=== PATIENT | female | born 1995 | race Caucasian/White ===

== ENCOUNTER 2017-04-16 00:39 | Emergency (ER) | payer MEDICARE, MEDICAID ==
[2017-04-16] MEDS ORDERED: oxyCODONE/Acetamin 5/325 MG* TAB PO ONE ×2 (02:20→02:21)
[2017-04-16] MEDS ORDERED: Penicillin VK TAB* 250 MG PO ONE (02:22)
[2017-04-16 02:51] VITALS: BP 136/92
--- NOTE | 2017-04-16 14:48 | ED ---
Throat Pain/Nasal Congestion - HPI Summary HPI Summary: Patient arrives to ED with CC of pain over left upper molar radiating to the jaw and ear. She also is having pain in the bottom front teeth radiating to the back molars of the lower mandible. Denies trismus, drooling or dysphagia. Pain is 7/10, sharp and throbbing. Denies airway compromise or SOB. Denies ear pain , eye pain, blurry vision or double vision. Otherwise healthy. Pain is worse with chewing and cold drinks, better with ibuprofen, but only improves slightly. Patient denies dental care for several years. She has had fillings over the areas of concern. She has a dentist and states she will follow up as needed. - History of Current Complaint Chief Complaint: EDDentalPain Time Seen by Provider: 04/16/17 02:06 Hx Obtained From: Patient Onset/Duration: Sudden Onset Severity: Moderate - Epiglottits Risk Factors Epiglottis Risk Factors: Negative - Allergies/Home Medications Allergies/Adverse Reactions: Allergies Allergy/AdvReac Type Severity Reaction Status Date / Time Coconut Oil Allergy Severe Swelling Verified 12/28/12 14:17 Of Face,Lips,& Throat Prochlorperazine Allergy Severe Swelling Verified 12/28/12 14:17 [From Compazine] Of Face,Lips,& Throat Latex Allergy Intermediate Rash Verified 12/28/12 14:17 [place] Flavor Allergy Mild Hives Verified 12/28/12 14:17 Sulfa Antibiotics Allergy Rash Unverified 08/09/14 10:30 almonds Allergy Swelling Uncoded 08/09/14 10:30 Of Face,Lips,& Throat PMH/Surg Hx/FS Hx/Imm Hx Previously Healthy: Yes Endocrine/Hematology History: Denies: Hx Anticoagulant Therapy, Hx Diabetes, Hx Thyroid Disease Cardiovascular History: Denies: Hx Hypertension Respiratory History: Reports: Hx Asthma Denies: Hx Chronic Obstructive Pulmonary Disease (COPD) GI History: Denies: Hx Ulcer Sensory History: Reports: Hx Contacts or Glasses Opthamlomology History: Reports: Hx Contacts or Glasses Psychiatric History: Reports: Hx Anxiety, Hx Attention Deficit Hyperactivity Disorder, Hx Depression, Hx Post Traumatic Stress Disorder, Hx Inpatient Treatment, Hx Bipolar Disorder Denies: Hx Eating Disorder - Surgical History Surgery Procedure, Year, and Place: gall bladder removed at age 15,several scopes - Immunization History Hx Pertussis Vaccination: No Immunizations Up to Date: Unable to Obtain/Confirm Infectious Disease History: No Infectious Disease History: Reports: Hx Shingles Denies: Hx Hepatitis, Hx Human Immunodeficiency Virus (HIV), Traveled Outside the [place] in Last 30 Days - Social History Occupation: Employed Full-time Lives: With Family Alcohol Use: None Hx Substance Use: No Substance Use Type: Reports: None Hx Tobacco Use: Yes Smoking Status (MU): Light Every Day Tobacco Smoker Review of Systems Constitutional: Negative Eyes: Negative Positive: Dental Pain Cardiovascular: Negative Respiratory: Negative Musculoskeletal: Negative Skin: Negative Neurological: Negative Psychological: Normal All Other Systems Reviewed And Are Negative: Yes Physical Exam Triage Information Reviewed: Yes Vital Signs On Initial Exam: Initial Vitals Temp Pulse Resp BP Pulse Ox 97 F 103 20 137/95 100 04/16/17 00:41 04/16/17 00:41 04/16/17 00:41 04/16/17 00:41 04/16/17 00:41 Vital Signs Reviewed: Yes Appearance: Positive: Well-Appearing, Well-Nourished Skin: Positive: Warm, Skin Color Reflects Adequate Perfusion Eyes: Positive: Normal, YUDELKA Dental: Positive: Percussion Tenderness @ - left upper and lower jaw, Gross Decay/Caries @ - throughout, Dental Fracture @ - upper molar, Abscess @ - no abcess seen Respiratory/Lung Sounds: Positive: Clear to Auscultation, Breath Sounds Present Cardiovascular: Positive: Normal, RRR, Pulses are Symmetrical in both Upper and Lower Extremities Musculoskeletal: Positive: Normal, Strength/ROM Intact Neurological: Positive: Sensory/Motor Intact, Alert, Oriented to Person Place, Time Psychiatric: Positive: Normal AVPU Assessment: Alert Diagnostics - Vital Signs Vital Signs Temp Pulse Resp BP Pulse Ox 04/16/17 02:50 98 F 95 136/92 04/16/17 02:43 18 04/16/17 00:41 97 F 103 20 137/95 100 - Laboratory Lab Statement: Any lab studies that have been ordered have been reviewed, and results considered in the medical decision making process. EENT Course/Dx - Course Course Of Treatment: No dental abscess or lesions seen over area of concern. No erythema at site of pain. No drainage from area. Several dental caries, cavities, crowding and broken teeth throughout. Pain on palpation over mandible. No TMJ tenderness. No pain with opening and closing mouth. Poor dental hygiene and outpatient dental care. Will treat for possible dental infection/abscess based on symptoms of pain and radiation to jaw and ear. No allergies. Will treat with Penicillin. Patient to follow up immediately with dentist. Pain medication given in ED and one dose to dispense to home. Patient is OK with discharge. - Differential Diagnoses Differential Diagnoses: Dental Abscess, Dental Caries, Mastoiditis, Odontogenic Pain - Diagnoses Provider Diagnoses: Pain, dental Discharge - Discharge Plan Condition: Stable Disposition: HOME Prescriptions: Penicillin VK TAB 500 MG(NF) [Penicillin VK 500 mg Tab(NF)] 500 mg PO QID #27 tab Patient Education Materials: Toothache (ED) Referrals: Jass Pedroza MD [Primary Care Provider] - Additional Instructions: You have been diagnosed with dental pain with possible infection: Antibiotics as prescribed to you. Penicillin four times daily for 7 days. To minimize the potential for gastrointestinal intolerance, Pencillin should be taken at the start of a meal. If you have any questions about your medication, please contact us or ask your pharmacist. Salt water rinses several times per day will improve healing time. Ibuprofen 600mg three times daily with meals for discomfort. Take a probiotic on opposite schedule of antibiotic. Follow up with a dentist for routine care to prevent recurrence of infections. If fever, worsening pain or swelling develops, see your PCP, dentist or come back to the Emergency Department. Images - Images Dental: 1 - broken tooth 2 - pain radiating to the back molars
== END 2017-04-16 02:50 | disposition home or self-care (01) ==
LOC: ED 00:39
DX: K08.89 Other specified disorders of teeth and supporting structures (principal); F17.210 Nicotine dependence, cigarettes, uncomplicated
CPT/HCPCS: 99282; A9270-GY

== ENCOUNTER → 2017-07-20 19:30 | Emergency (ER) | payer MEDICAID, MEDICARE ==
[~2017-07-20 19:30] MED LIST: Iohexol 300* (CONTRAST) 10 ML SDV IV ONE; Ketorolac INJ* 30 MG/ML 1 ML VIAL IV PUSH ONE; Morphine INJ* 2 MG/ML 1 ML SYRINGE IV ONE; Ondansetron INJ* 2 MG/ML VIAL IV ONE
--- NOTE | 2017-07-20 20:59 | ED ---
Throat Pain/Nasal Congestion - HPI Summary HPI Summary: 21F presents with right sided facial swelling for a week. She states it initially started with a headache. She states then she develop swelling around her eye then pain down through her draw. She states she had fractured tooth that she was suppose to have removed but then her dentist had an injury and couldn't remove her tooth. She was on zpack and finished it with no relief. She was placed on clindamycin with first dose last night. She has been taking percocet and ibuprofen without relief. She states swelling is down due to taking the ibuprofen. She denies any pain with EOM. She denies any fever. She denies any chest pain or SOB. She has had dental infections in the past and states that pain is different this time. - History of Current Complaint Chief Complaint: EDDentalPain Time Seen by Provider: 07/20/17 20:37 - Allergies/Home Medications Allergies/Adverse Reactions: Allergies Allergy/AdvReac Type Severity Reaction Status Date / Time Coconut Oil Allergy Severe Swelling Verified 07/20/17 20:07 Of Face,Lips,& Throat Prochlorperazine Allergy Severe Swelling Verified 07/20/17 20:07 [From Compazine] Of Face,Lips,& Throat Latex Allergy Intermediate Rash Verified 07/20/17 20:07 [place] Flavor Allergy Mild Hives Verified 07/20/17 20:07 Penicillins [PCN] Allergy Anaphylatic Verified 07/20/17 20:07 Shock Sulfa Antibiotics Allergy Rash Unverified 07/20/17 20:07 almonds Allergy Swelling Uncoded 07/20/17 20:07 Of Face,Lips,& Throat PMH/Surg Hx/FS Hx/Imm Hx Endocrine/Hematology History: Denies: Hx Anticoagulant Therapy, Hx Diabetes, Hx Thyroid Disease Cardiovascular History: Denies: Hx Hypertension Respiratory History: Reports: Hx Asthma Denies: Hx Chronic Obstructive Pulmonary Disease (COPD) GI History: Denies: Hx Ulcer Sensory History: Reports: Hx Contacts or Glasses Opthamlomology History: Reports: Hx Contacts or Glasses Psychiatric History: Reports: Hx Anxiety, Hx Attention Deficit Hyperactivity Disorder, Hx Depression, Hx Post Traumatic Stress Disorder, Hx Inpatient Treatment, Hx Bipolar Disorder Denies: Hx Eating Disorder - Surgical History Surgery Procedure, Year, and Place: gall bladder removed at age 15,several scopes Infectious Disease History: Reports: Hx Shingles Denies: Hx Hepatitis, Hx Human Immunodeficiency Virus (HIV), Traveled Outside the [place] in Last 30 Days - Family History Known Family History: Positive: Respiratory Disease - Social History Alcohol Use: None Hx Substance Use: No Substance Use Type: Reports: None Hx Tobacco Use: Yes Smoking Status (MU): Light Every Day Tobacco Smoker Review of Systems Negative: Fever Positive: Dental Pain, Other - facial swelling right side Negative: Chest Pain Negative: Shortness Of Breath All Other Systems Reviewed And Are Negative: Yes Physical Exam Triage Information Reviewed: Yes Vital Signs On Initial Exam: Initial Vitals Temp Pulse Resp BP Pulse Ox 97.8 F 93 16 149/88 98 07/20/17 19:55 07/20/17 19:55 07/20/17 19:55 07/20/17 19:55 07/20/17 19:55 Vital Signs Reviewed: Yes Appearance: Positive: Well-Appearing Skin: Positive: Warm, Dry Head/Face: Positive: Normal Head/Face Inspection, Other - minimial swelling of right side of face Eyes: Positive: Normal, EOMI, YUDELKA, Conjunctiva Clear ENT: Positive: Normal ENT inspection, Pharynx normal, TMs normal Dental: Positive: Percussion Tenderness @ - 32, Dental Fracture @ - 32, Other - no submandibular tenderness. Negative: Abscess @ Neck: Positive: Supple, Nontender, No Lymphadenopathy Respiratory/Lung Sounds: Positive: Clear to Auscultation, Breath Sounds Present Cardiovascular: Positive: Normal, RRR Procedures - Procedure Summary Procedure Summary: cleaned tooth with 500cc saline Place cetricaine on area Dried area and placed temporary cement Diagnostics - Vital Signs Vital Signs Temp Pulse Resp BP Pulse Ox 07/20/17 19:55 97.8 F 93 16 149/88 98 - Laboratory Result Diagrams: 07/20/17 21:28 07/20/17 21:28 Lab Statement: Any lab studies that have been ordered have been reviewed, and results considered in the medical decision making process. - CT maxillary facial CT Interpretation: Positive (See Comments) - dental caries CT Interpretation Completed By: Radiologist EENT Course/Dx - Course Course Of Treatment: 21F presents with right sided facial swelling for a week. She states it initially started with a headache. She states then she develop swelling around her eye then pain down through her draw. She states she had fractured tooth that she was suppose to have removed but then her dentist had an injury and couldn't remove her tooth. She was on zpack and finished it with no relief. She was placed on clindamycin with first dose last night. She has been taking percocet and ibuprofen without relief. She states swelling is down due to taking the ibuprofen. She denies any pain with EOM. She denies any chest pain or SOB. She has had dental infections in the past and states that pain is different this time. on exam minimial swelling of right side of face seen, no abscess felt, tenderness to tooth 32. no submandibular tenderness. labs normal. will get CT of face. CT dental caries. will experiencing nerve pain. placed temporary filling on fractured tooth. will have continue clindamycin and added percocet for pain. patient understands and agrees with plan. - Differential Diagnoses Differential Diagnoses: Dental Abscess, Dental Caries, Fractured Tooth - Diagnoses Provider Diagnoses: Headache, Pain, dental, Fractured tooth Discharge - Discharge Plan Condition: Good Disposition: HOME Prescriptions: oxyCODONE/Acetamin 5/325 MG* [Percocet 5/325 TAB*] 1 tab PO Q6H PRN #16 tab MDD 4 PRN Reason: Pain Patient Education Materials: Toothache (ED) Referrals: Jass Pedroza MD [Primary Care Provider] - Additional Instructions: Continue clindamycin Take ibuprofen every 6 hours, use narcotic for break through pain Avoid hard, crunchy food until seen by dentist Return to ED if develop fever, shortness of breath, pain with eye movement or any new or worsening symptoms Images - Images Dental: 1 - fracture tooth
[2017-07-20 21:48] LABS: Hematocrit 39 % (35-47); Hemoglobin 12.9 g/dl (12.0-16.0); Mean Corpuscular HGB Conc 33 g/dl (31-36); Mean Corpuscular Hemoglobin 28 pg (27-31); Mean Corpuscular Volume 86 fL (80-97); Mean Platelet Volume 7 um3 (7.4-10.4); Red Blood Count 4.56 10^6/ul (4.0-5.4); Red Cell Distribution Width 14 % (10.5-15); White Blood Count 10.8 10^3/ul (3.5-10.8)
[2017-07-20 22:04] LABS: ALT 20 U/L (7-52); AST 18 U/L (13-39); Albumin 3.8 g/dL (3.2-5.2); Alkaline Phosphatase 72 U/L (34-104); Anion Gap 7 mmol/L (2-11); BUN/Creatinine Ratio 11.3 (8-20); Blood Urea Nitrogen 9 mg/dL (6-24); CO2 Carbon Dioxide 26 mmol/L (22-32); Calcium 8.8 mg/dL (8.6-10.3); Chloride 104 mmol/L (101-111); EGFR African American 114.3 (>60); EGFR Non-African American 88.9 (>60); Globulin 3.1 g/dL (2-4); Glucose 96 mg/dL (70-100); Potassium 3.5 mmol/L (3.5-5.0); Sodium 137 mmol/L (133-145); Total Protein 6.9 g/dL (6.4-8.9)
[2017-07-21 00:03] VITALS: BP 118/81
--- NOTE | 2017-07-21 07:16 | RAD ---
INDICATION: Right-sided facial swelling. COMPARISON: There are no prior studies available for comparison. TECHNIQUE: Contiguous axial sections of the axial images of the facial bones were obtained and reconstructed in the coronal and sagittal planes. The exam was performed from following intravenous injection of 50 mL of Omnipaque 300 nonionic contrast. FINDINGS: No focal soft tissue swelling, fluid collection or abscess is seen. The parotid and submandibular glands appear to be within normal limits. No significant enlarged lymph nodes are seen. The orbital globes and extraocular muscles and optic nerves appear symmetric bilaterally.. The paranasal sinuses are clear. The ostiomeatal complexes appear patent bilaterally. There is mild increased density within the right nasal cavity which appears to be secondary to mucosal swelling along the turbinate bones. There is moderate deviation of the nasal septum toward the left side. There are dental caries present. IMPRESSION: DENTAL CARIES.
== END | disposition home or self-care (01) ==
LOC: ED 19:30
DX: K08.89 Other specified disorders of teeth and supporting structures (principal); F17.210 Nicotine dependence, cigarettes, uncomplicated; R51 Headache; K03.81 Cracked tooth
CPT/HCPCS: 36415; 70487; 80053; 83605; 84702; 85025; 96374; 96375; 99282; J1885; J2270; J2405; Q9967

== ENCOUNTER 2017-10-04 03:22 | Emergency (ER) | payer MEDICARE, MEDICAID ==
[2017-10-04] MEDS ORDERED: Ketorolac INJ* 60 MG/2 ML VIAL IM ONE (03:49)
[2017-10-04] MEDS ORDERED: ALPRAZolam TAB* 0.5 MG PO ONE (03:49)
--- NOTE | 2017-10-04 05:01 | ED ---
Bisi Hood Alfonso, scribed for Fede Sterling MD on 10/04/17 at 0346 . Complex/Multi-Sys Presentation - HPI Summary HPI Summary: This patient is a 21 year old F BIBA to [facility] with a chief complaint of sore throat since 2129 tonight. The patient rates the pain 7/10 in severity. Symptoms aggravated and alleviated by nothing. Patient reports sinus congestion (4 months intermittent), and right sided headache. - History Of Current Complaint Chief Complaint: EDAllergicReaction Time Seen by Provider: 10/04/17 03:35 Hx Obtained From: Patient Onset/Duration: Gradual Onset, Lasting Hours, Still Present Timing: Constant Severity Currently: Moderate Aggravating Factor(s): nothing Alleviating Factor(s): nothing Associated Signs And Symptoms: Positive: Other - sinus congestion (4 months intermittent), and right sided headache. - Allergies/Home Medications Allergies/Adverse Reactions: Allergies Allergy/AdvReac Type Severity Reaction Status Date / Time Coconut Oil Allergy Severe Swelling Verified 10/04/17 03:55 Of Face,Lips,& Throat Prochlorperazine Allergy Severe Swelling Verified 10/04/17 03:55 [From Compazine] Of Face,Lips,& Throat Latex Allergy Intermediate Rash Verified 10/04/17 03:55 [place] Flavor Allergy Mild Hives Verified 10/04/17 03:55 Dextromethorphan Allergy See Comment Verified 10/04/17 03:55 [From Mucinex DM] Guaifenesin [From Mucinex DM] Allergy See Comment Verified 10/04/17 03:55 Penicillins [PCN] Allergy Anaphylatic Verified 10/04/17 03:55 Shock Sulfa Antibiotics Allergy Rash Verified 10/04/17 03:55 Yellow Dye [From Mucinex DM] Allergy See Comment Verified 10/04/17 03:55 almonds Allergy Swelling Uncoded 07/20/17 20:07 Of Face,Lips,& Throat PMH/Surg Hx/FS Hx/Imm Hx Endocrine/Hematology History: Denies: Hx Anticoagulant Therapy, Hx Diabetes, Hx Thyroid Disease Cardiovascular History: Denies: Hx Hypertension Respiratory History: Reports: Hx Asthma Denies: Hx Chronic Obstructive Pulmonary Disease (COPD) GI History: Denies: Hx Ulcer Sensory History: Reports: Hx Contacts or Glasses Opthamlomology History: Reports: Hx Contacts or Glasses Psychiatric History: Reports: Hx Anxiety, Hx Attention Deficit Hyperactivity Disorder, Hx Depression, Hx Post Traumatic Stress Disorder, Hx Inpatient Treatment, Hx Bipolar Disorder Denies: Hx Eating Disorder - Surgical History Surgery Procedure, Year, and Place: gall bladder removed at age 15,several scopes Infectious Disease History: Yes Infectious Disease History: Reports: Hx Shingles Denies: Hx Hepatitis, Hx Human Immunodeficiency Virus (HIV), Traveled Outside the [place] in Last 30 Days - Family History Known Family History: Positive: Respiratory Disease - Social History Alcohol Use: None Hx Substance Use: No Substance Use Type: Reports: None Hx Tobacco Use: Yes Smoking Status (MU): Light Every Day Tobacco Smoker Review of Systems Negative: Fever Positive: Sore Throat, Other - Sinus congestion Positive: Headache All Other Systems Reviewed And Are Negative: Yes Physical Exam - Summary Physical Exam Summary: VITAL SIGNS: Reviewed. GENERAL: Patient is a well-developed and nourished female who is lying comfortable in the stretcher. Patient is not in any acute respiratory distress. HEAD AND FACE: No signs of trauma. No ecchymosis, hematomas or skull depressions. No sinus tenderness. EYES: PERRLA, EOMI x 2, No injected conjunctiva, no nystagmus. EARS: Hearing grossly intact. Ear canals and tympanic membranes are within normal limits. MOUTH: Oropharynx within normal limits. NECK: Supple, trachea is midline, no adenopathy, no JVD, no carotid bruit, no c- spine tenderness, neck with full ROM. CHEST: Symmetric, no tenderness at palpation LUNGS: Clear to auscultation bilaterally. No wheezing or crackles. CVS: Regular rate and rhythm, S1 and S2 present, no murmurs or gallops appreciated. ABDOMEN: Soft, non-tender. No signs of distention. No rebound no guarding, and no masses palpated. Bowel sounds are normal. EXTREMITIES: FROM in all major joints, no edema, no cyanosis or clubbing. NEURO: Alert and oriented x 3. No acute neurological deficits. Speech is normal and follows commands. SKIN: Dry and warm Triage Information Reviewed: Yes Vital Signs On Initial Exam: Initial Vitals Temp Pulse Resp BP Pulse Ox 98.3 F 91 18 137/107 96 10/04/17 03:24 10/04/17 03:24 10/04/17 03:24 10/04/17 03:24 10/04/17 03:24 Vital Signs Reviewed: Yes - Dewitt Coma Scale Coma Scale Total: 15 Diagnostics - Vital Signs Vital Signs Temp Pulse Resp BP Pulse Ox 10/04/17 03:24 98.3 F 91 18 137/107 96 - Laboratory Lab Statement: Any lab studies that have been ordered have been reviewed, and results considered in the medical decision making process. Complex Multi-Symp Course/Dx Assessment/Plan: This patient is a 21 year old F BIBA to [facility] with a chief complaint of sore throat since 2129 tonight. The patient rates the pain 7/10 in severity. Symptoms aggravated and alleviated by nothing. Patient reports sinus congestion (4 months intermittent), and right sided headache. In the ED course the patient was given Xanax and Toradol. Patient will be discharged with follow up from PCP. The patient is agreeable with this plan. - Diagnoses Provider Diagnoses: Headache, Anxiety Discharge - Discharge Plan Condition: Stable Disposition: HOME Patient Education Materials: Acute Headache (ED), Anxiety (ED) Referrals: Jass Pedroza MD [Primary Care Provider] - 3 Days Additional Instructions: RETURN TO THE EMERGENCY DEPARTMENT FOR CHANGING OR WORSENING SYMPTOMS. The documentation as recorded by the Bisi rizzo Alfonso accurately reflects the service I personally performed and the decisions made by me, Fede Sterling MD.
[2017-10-04 05:16] VITALS: BP 153/90
== END 2017-10-04 05:18 | disposition home or self-care (01) ==
LOC: ED 03:22
DX: R51 Headache (principal); F41.9 Anxiety disorder, unspecified; Z72.0 Tobacco use; J45.909 Unspecified asthma, uncomplicated; F90.9 Attention-deficit hyperactivity disorder, unspecified type; F43.10 Post-traumatic stress disorder, unspecified; F32.9 Major depressive disorder, single episode, unspecified; Z88.0 Allergy status to penicillin; Z88.2 Allergy status to sulfonamides
CPT/HCPCS: 96372; 99282; A9270-GY; J1885

== ENCOUNTER 2017-11-03 21:30 | Emergency (ER) | payer MEDICARE, MEDICAID ==
[2017-11-03 22:12] VITALS: BP 143/90
[2017-11-03 22:12] LABS: Hematocrit 42 % (35-47); Mean Corpuscular HGB Conc 34 g/dl (31-36); Mean Corpuscular Hemoglobin 29 pg (27-31); Mean Corpuscular Volume 85 fL (80-97); Mean Platelet Volume 7 um3 (7.4-10.4); Red Blood Count 4.91 10^6/ul (4.0-5.4); Red Cell Distribution Width 14 % (10.5-15)
[2017-11-03 22:28] LABS: ALT 19 U/L (7-52); AST 17 U/L (13-39); Alkaline Phosphatase 85 U/L (34-104); Anion Gap 6 mmol/L (2-11); BUN/Creatinine Ratio 9.4 (8-20); Blood Urea Nitrogen 8 mg/dL (6-24); CO2 Carbon Dioxide 26 mmol/L (22-32); Calcium 9.2 mg/dL (8.6-10.3); Chloride 104 mmol/L (101-111); EGFR African American 106.6 (>60); EGFR Non-African American 82.9 (>60); Globulin 3.6 g/dL (2-4); Glucose 83 mg/dL (70-100); Potassium 3.7 mmol/L (3.5-5.0); Sodium 136 mmol/L (133-145); Total Protein 7.6 g/dL (6.4-8.9); Urine Bacteria Absent (Absent); Urine Bilirubin Negative (Negative); Urine Glucose Negative (Negative); Urine Nitrite Negative (Negative)
[2017-11-03 22:32] LABS: Benzodiazepine Urine Screen None Detected (None Detect)
[2017-11-03 22:57] LABS: Acetaminophen < 15 mcg/mL; Alcohol < 10 mg/dL (<10); Salicylate < 2.50 mg/dL (<30)
[2017-11-03 23:12] LABS: TSH (Thyroid Stimulating Horm) 3.64 mcIU/mL (0.34-5.60)
--- NOTE | 2017-11-04 02:04 | ED ---
Satya Hood Tiffany, scribed for Domenic Dominguez on 11/03/17 at 2218 . Psychiatric Complaint - HPI Summary HPI Summary: This patient is a 21 year old F BIBA to [facility] with a chief complaint of depression that has worsened over the past several weeks. Symptoms aggravated by nothing. Symptoms alleviated by nothing. Patient reports suicidal ideation with no plan and uncontrollable crying. - History Of Current Complaint Time Seen by Provider: 11/03/17 21:34 Onset/Duration: Lasting Weeks, Still Present Character: Depressed Aggravating Factor(s): Nothing Alleviating Factor(s): Nothing Has Suicidal: Reports: Thoughts. Denies: With A Plan - Allergies/Home Medications Allergies/Adverse Reactions: Allergies Allergy/AdvReac Type Severity Reaction Status Date / Time Coconut Oil Allergy Severe Swelling Verified 10/04/17 03:55 Of Face,Lips,& Throat Prochlorperazine Allergy Severe Swelling Verified 10/04/17 03:55 [From Compazine] Of Face,Lips,& Throat Latex Allergy Intermediate Rash Verified 10/04/17 03:55 Jovon Flavor Allergy Mild Hives Verified 10/04/17 03:55 Dextromethorphan Allergy See Comment Verified 10/04/17 03:55 [From Mucinex DM] Guaifenesin [From Mucinex DM] Allergy See Comment Verified 10/04/17 03:55 Penicillins [PCN] Allergy Anaphylatic Verified 10/04/17 03:55 Shock Sulfa Antibiotics Allergy Rash Verified 10/04/17 03:55 Yellow Dye [From Mucinex DM] Allergy See Comment Verified 10/04/17 03:55 almonds Allergy Swelling Uncoded 07/20/17 20:07 Of Face,Lips,& Throat PMH/Surg Hx/FS Hx/Imm Hx Previously Healthy: No Endocrine/Hematology History: Denies: Hx Anticoagulant Therapy, Hx Diabetes, Hx Thyroid Disease Cardiovascular History: Denies: Hx Hypertension Respiratory History: Reports: Hx Asthma Denies: Hx Chronic Obstructive Pulmonary Disease (COPD) GI History: Reports: Hx Gastroesophageal Reflux Disease Denies: Hx Ulcer Sensory History: Reports: Hx Contacts or Glasses Opthamlomology History: Reports: Hx Contacts or Glasses Psychiatric History: Reports: Hx Anxiety, Hx Attention Deficit Hyperactivity Disorder, Hx Depression, Hx Post Traumatic Stress Disorder, Hx Inpatient Treatment, Hx Bipolar Disorder Denies: Hx Eating Disorder - Surgical History Surgery Procedure, Year, and Place: gall bladder removed at age 15,several scopes Infectious Disease History: Reports: Hx Shingles Denies: Hx Hepatitis, Hx Human Immunodeficiency Virus (HIV), Traveled Outside the [place] in Last 30 Days - Family History Known Family History: Positive: Respiratory Disease - Social History Alcohol Use: Rare Hx Substance Use: No Substance Use Type: Reports: None Hx Tobacco Use: Yes Smoking Status (MU): Light Every Day Tobacco Smoker Review of Systems Negative: Fever Positive: Depressed, Other - Suicidal ideation with no plan, crying All Other Systems Reviewed And Are Negative: Yes Physical Exam - Summary Physical Exam Summary: Appearance: Well appearing, no pain distress Skin: warm, dry, reflects adequate perfusion Head/face: normal Eyes: EOMI, YUDELKA ENT: normal Neck: supple, non-tender Respiratory: CTA, breath sounds present Cardiovascular: RRR, pulses symmetrical Abdomen: non-tender, soft Bowel: present Musculoskeletal: normal, strength/ROM intact Neuro: normal, sensory motor intact, A&Ox3 Psych: depressed affect Triage Information Reviewed: Yes Vital Signs On Initial Exam: Initial Vitals Temp Pulse Resp BP Pulse Ox 98.2 F 109 18 143/90 97 11/03/17 21:33 11/03/17 21:33 11/03/17 21:33 11/03/17 21:33 11/03/17 21:33 Vital Signs Reviewed: Yes Diagnostics - Vital Signs Vital Signs Temp Pulse Resp BP Pulse Ox 11/03/17 21:33 98.2 F 109 18 143/90 97 - Laboratory Lab Results: Lab Results 11/03/17 11/03/17 11/03/17 Range/Units 21:54 21:54 21:54 WBC 13.0 H (3.5-10.8) 10^3/ul RBC 4.91 (4.0-5.4) 10^6/ul Hgb 14.0 (12.0-16.0) g/dl Hct 42 (35-47) % MCV 85 (80-97) fL MCH 29 (27-31) pg MCHC 34 (31-36) g/dl RDW 14 (10.5-15) % Plt Count 423 (150-450) 10^3/ul MPV 7 L (7.4-10.4) um3 Neut % (Auto) 64.5 (38-83) % Lymph % (Auto) 30.6 (25-47) % [place] % (Auto) 4.6 (1-9) % Eos % (Auto) 0.1 (0-6) % Baso % (Auto) 0.2 (0-2) % Absolute Neuts (auto) 8.4 H (1.5-7.7) 10^3/ul Absolute Lymphs (auto) 4.0 (1.0-4.8) 10^3/ul Absolute Monos (auto) 0.6 (0-0.8) 10^3/ul Absolute Eos (auto) 0 (0-0.6) 10^3/ul Absolute Basos (auto) 0 (0-0.2) 10^3/ul Absolute Nucleated RBC 0 10^3/ul Nucleated RBC % 0 Sodium 136 (133-145) mmol/L Potassium 3.7 (3.5-5.0) mmol/L Chloride 104 (101-111) mmol/L Carbon Dioxide 26 (22-32) mmol/L Anion Gap 6 (2-11) mmol/L BUN 8 (6-24) mg/dL Creatinine 0.85 (0.51-0.95) mg/dL Est GFR ( Amer) 106.6 (>60) Est GFR (Non-Af Amer) 82.9 (>60) BUN/Creatinine Ratio 9.4 (8-20) Glucose 83 (70-100) mg/dL Calcium 9.2 (8.6-10.3) mg/dL Total Bilirubin 0.20 (0.2-1.0) mg/dL AST 17 (13-39) U/L ALT 19 (7-52) U/L Alkaline Phosphatase 85 (34-104) U/L Total Protein 7.6 (6.4-8.9) g/dL Albumin 4.0 (3.2-5.2) g/dL Globulin 3.6 (2-4) g/dL Albumin/Globulin Ratio 1.1 (1-3) TSH 3.64 (0.34-5.60) mcIU/mL Beta HCG, Quant < 0.60 mIU/mL Urine Color Urine Appearance Urine pH (5-9) Ur Specific [place] (1.010-1.030) Urine Protein (Negative) Urine Ketones (Negative) Urine Blood (Negative) Urine Nitrate (Negative) Urine Bilirubin (Negative) Urine Urobilinogen (Negative) Ur Leukocyte Esterase (Negative) Urine WBC (Auto) (Absent) Urine RBC (Auto) (Absent) Ur Squamous Epith Cells (Absent) Urine Bacteria (Absent) Urine Glucose (Negative) Salicylates < 2.50 (<30) mg/dL Urine Opiates Screen None detected (None Detect) Acetaminophen < 15 mcg/mL Ur Barbiturates Screen None detected (None Detect) Ur Phencyclidine Scrn None detected (None Detect) Ur Amphetamines Screen None detected (None Detect) U Benzodiazepines Scrn None detected (None Detect) Urine Cocaine Screen None detected (None Detect) U Cannabinoids Screen None detected (None Detect) Serum Alcohol < 10 (<10) mg/dL 11/03/17 Range/Units 21:54 WBC (3.5-10.8) 10^3/ul RBC (4.0-5.4) 10^6/ul Hgb (12.0-16.0) g/dl Hct (35-47) % MCV (80-97) fL MCH (27-31) pg MCHC (31-36) g/dl RDW (10.5-15) % Plt Count (150-450) 10^3/ul MPV (7.4-10.4) um3 Neut % (Auto) (38-83) % Lymph % (Auto) (25-47) % [place] % (Auto) (1-9) % Eos % (Auto) (0-6) % Baso % (Auto) (0-2) % Absolute Neuts (auto) (1.5-7.7) 10^3/ul Absolute Lymphs (auto) (1.0-4.8) 10^3/ul Absolute Monos (auto) (0-0.8) 10^3/ul Absolute Eos (auto) (0-0.6) 10^3/ul Absolute Basos (auto) (0-0.2) 10^3/ul Absolute Nucleated RBC 10^3/ul Nucleated RBC % Sodium (133-145) mmol/L Potassium (3.5-5.0) mmol/L Chloride (101-111) mmol/L Carbon Dioxide (22-32) mmol/L Anion Gap (2-11) mmol/L BUN (6-24) mg/dL Creatinine (0.51-0.95) mg/dL Est GFR ( Amer) (>60) Est GFR (Non-Af Amer) (>60) BUN/Creatinine Ratio (8-20) Glucose (70-100) mg/dL Calcium (8.6-10.3) mg/dL Total Bilirubin (0.2-1.0) mg/dL AST (13-39) U/L ALT (7-52) U/L Alkaline Phosphatase (34-104) U/L Total Protein (6.4-8.9) g/dL Albumin (3.2-5.2) g/dL Globulin (2-4) g/dL Albumin/Globulin Ratio (1-3) TSH (0.34-5.60) mcIU/mL Beta HCG, Quant mIU/mL Urine Color Yellow Urine Appearance Cloudy Urine pH 7.0 (5-9) Ur Specific [place] 1.015 (1.010-1.030) Urine Protein Negative (Negative) Urine Ketones Negative (Negative) Urine Blood Negative (Negative) Urine Nitrate Negative (Negative) Urine Bilirubin Negative (Negative) Urine Urobilinogen Negative (Negative) Ur Leukocyte Esterase Trace H (Negative) Urine WBC (Auto) Trace(0-5/hpf) (Absent) Urine RBC (Auto) Trace(0-2/hpf) (Absent) Ur Squamous Epith Cells Present H (Absent) Urine Bacteria Absent (Absent) Urine Glucose Negative (Negative) Salicylates (<30) mg/dL Urine Opiates Screen (None Detect) Acetaminophen mcg/mL Ur Barbiturates Screen (None Detect) Ur Phencyclidine Scrn (None Detect) Ur Amphetamines Screen (None Detect) U Benzodiazepines Scrn (None Detect) Urine Cocaine Screen (None Detect) U Cannabinoids Screen (None Detect) Serum Alcohol (<10) mg/dL Result Diagrams: 11/03/17 21:54 11/03/17 21:54 Lab Statement: Any lab studies that have been ordered have been reviewed, and results considered in the medical decision making process. Course/Dx - Course Course Of Treatment: This patient is a 21 year old F BIBA to [facility] with a chief complaint of depression that has worsened over the past several weeks. Bloodwork/UA obtained. Patient received mental health evaluation. Patient will be discharged. The patient is agreeable with this plan. - Differential Dx/Clinical Impression Differential Diagnosis/HQI/PQRI: Positive: Anxiety, Bipolar Disorder, Depression Provider Diagnosis: Depression Discharge - Discharge Plan Condition: Stable Disposition: HOME Patient Education Materials: Depression (ED) Referrals: Jass Pedroza MD [Primary Care Provider] - 3 Days Additional Instructions: Follow up with PCP in 3 days. Return to the ED if you have any new or worsening symptoms. The documentation as recorded by the Satya rizzo Tiffany accurately reflects the service I personally performed and the decisions made by Alberto perez Emmanuel.
--- NOTE | 2017-11-06 12:09 | PN ---
Progress Note - Progress Note Date of Service: 11/06/17 Note: patient urine culture grew E coli 10-25,000 which is not a significant culture so no treatment is necessary.
== END 2017-11-03 23:45 | disposition home or self-care (01) ==
LOC: ED 21:30
DX: F32.9 Major depressive disorder, single episode, unspecified (principal); R45.851 Suicidal ideations; Z32.02 Encounter for pregnancy test, result negative; J45.909 Unspecified asthma, uncomplicated; K21.9 Gastro-esophageal reflux disease without esophagitis; F90.9 Attention-deficit hyperactivity disorder, unspecified type; F41.9 Anxiety disorder, unspecified; Z90.49 Acquired absence of other specified parts of digestive tract; Z88.0 Allergy status to penicillin; Z88.2 Allergy status to sulfonamides; Z88.8 Allergy status to other drugs, medicaments and biological substances; Z91.040 Latex allergy status; F17.210 Nicotine dependence, cigarettes, uncomplicated
CPT/HCPCS: 36415; 80053; 80307; 80320; 80329; 81003; 81015; 84443; 84702; 85025; 87077; 87086; 87186; 99283; G0480

== ENCOUNTER 2017-11-19 19:44 | Inpatient (IN) | payer MEDICARE, MEDICAID ==
[2017-11-19 22:04] LABS: ABS Basophils 0.1 10^3/ul (0-0.2); ABS Eosinophils 0 10^3/ul (0-0.6); ABS Lymphocytes 3.8 10^3/ul (1.0-4.8); ABS Monocytes 0.7 10^3/ul (0-0.8); ABS Neutrophils 9.8 10^3/ul (1.5-7.7); ABS Nucleated RBC 0 10^3/ul; Eosinophil % 0 % (0-6); Hematocrit 40 % (35-47); Hemoglobin 13.6 g/dl (12.0-16.0); Lymphocyte % 26.4 % (25-47); Mean Corpuscular HGB Conc 34 g/dl (31-36); Mean Corpuscular Hemoglobin 28 pg (27-31); Mean Corpuscular Volume 83 fL (80-97); Mean Platelet Volume 7 um3 (7.4-10.4); Nucleated Red Blood Cells % 0; Platelet Count 389 10^3/ul (150-450); Red Cell Distribution Width 14 % (10.5-15); White Blood Count 14.3 10^3/ul (3.5-10.8)
[2017-11-19 22:19] LABS: EGFR Non-African American 91.5 (>60)
--- NOTE | 2017-11-19 23:20 | ED ---
Psychiatric Complaint - HPI Summary HPI Summary: 21F presents with suicidal thought. She states she wants to commit suicide yesterday by sleeping out in the snow. She states she went outside to do such but she could not stand the cold so she came back in. She states that these thoughts have gotten worst over the past 2 weeks. She denies any drug or ETOH use. She states she feels that she is not on the appropriate medication. She states that she also cut herself a couple days ago. - History Of Current Complaint Chief Complaint: EDMentalHealth Time Seen by Provider: 11/19/17 20:34 Hx Last Menstrual Period: 07/05/14 - Allergies/Home Medications Allergies/Adverse Reactions: Allergies Allergy/AdvReac Type Severity Reaction Status Date / Time Coconut Oil Allergy Severe Swelling Verified 11/19/17 19:52 Of Face,Lips,& Throat Prochlorperazine Allergy Severe Swelling Verified 11/19/17 19:52 [From Compazine] Of Face,Lips,& Throat Latex Allergy Intermediate Rash Verified 11/19/17 19:52 Jovon Flavor Allergy Mild Hives Verified 11/19/17 19:52 Dextromethorphan Allergy See Comment Verified 11/19/17 19:52 [From Mucinex DM] Guaifenesin [From Mucinex DM] Allergy See Comment Verified 11/19/17 19:52 Penicillins [PCN] Allergy Anaphylatic Verified 11/19/17 19:52 Shock Sulfa Antibiotics Allergy Rash Verified 11/19/17 19:52 Yellow Dye [From Mucinex DM] Allergy See Comment Verified 11/19/17 19:52 almonds Allergy Swelling Uncoded 11/19/17 19:52 Of Face,Lips,& Throat PMH/Surg Hx/FS Hx/Imm Hx Endocrine/Hematology History: Denies: Hx Anticoagulant Therapy, Hx Diabetes, Hx Thyroid Disease Cardiovascular History: Denies: Hx Hypertension Respiratory History: Reports: Hx Asthma Denies: Hx Chronic Obstructive Pulmonary Disease (COPD) GI History: Reports: Hx Gastroesophageal Reflux Disease Denies: Hx Ulcer Sensory History: Reports: Hx Contacts or Glasses Opthamlomology History: Reports: Hx Contacts or Glasses Psychiatric History: Reports: Hx Anxiety, Hx Attention Deficit Hyperactivity Disorder, Hx Depression, Hx Post Traumatic Stress Disorder, Hx Inpatient Treatment, Hx Bipolar Disorder Denies: Hx Eating Disorder - Surgical History Surgery Procedure, Year, and Place: gall bladder removed at age 15,several scopes Infectious Disease History: No Infectious Disease History: Reports: Hx Shingles Denies: Hx Hepatitis, Hx Human Immunodeficiency Virus (HIV), Traveled Outside the [place] in Last 30 Days - Family History Known Family History: Positive: Respiratory Disease - Social History Alcohol Use: Rare Hx Substance Use: No Substance Use Type: Reports: None Substance Use Comment - Amount & Last Used: occasionally Hx Tobacco Use: Yes Smoking Status (MU): Light Every Day Tobacco Smoker Review of Systems Negative: Fever Negative: Chest Pain Negative: Shortness Of Breath Positive: Depressed All Other Systems Reviewed And Are Negative: Yes Physical Exam Triage Information Reviewed: Yes Vital Signs On Initial Exam: Initial Vitals Temp Pulse Resp BP Pulse Ox 97.7 F 130 18 128/74 98 11/19/17 19:46 11/19/17 19:46 11/19/17 19:46 11/19/17 19:46 11/19/17 19:46 Vital Signs Reviewed: Yes Appearance: Positive: Well-Appearing Skin: Positive: Warm, Dry, Other - superficial laceration to left arm Head/Face: Positive: Normal Head/Face Inspection Eyes: Positive: Normal, Conjunctiva Clear Respiratory/Lung Sounds: Positive: Clear to Auscultation, Breath Sounds Present Cardiovascular: Positive: Normal, RRR Abdomen Description: Positive: Nontender, Soft Bowel Sounds: Positive: Present Musculoskeletal: Positive: Normal Neurological: Positive: Normal Psychiatric: Positive: Depressed - Anders Coma Scale Coma Scale Total: 15 Diagnostics - Vital Signs Vital Signs Temp Pulse Resp BP Pulse Ox 11/19/17 19:46 97.7 F 130 18 128/74 98 - Laboratory Lab Results: Lab Results 11/19/17 11/19/17 Range/Units 21:50 21:50 WBC 14.3 H (3.5-10.8) 10^3/ul RBC 4.80 (4.0-5.4) 10^6/ul Hgb 13.6 (12.0-16.0) g/dl Hct 40 (35-47) % MCV 83 (80-97) fL MCH 28 (27-31) pg MCHC 34 (31-36) g/dl RDW 14 (10.5-15) % Plt Count 389 (150-450) 10^3/ul MPV 7 L (7.4-10.4) um3 Neut % (Auto) 68.4 (38-83) % Lymph % (Auto) 26.4 (25-47) % [place] % (Auto) 4.7 (1-9) % Eos % (Auto) 0 (0-6) % Baso % (Auto) 0.5 (0-2) % Absolute Neuts (auto) 9.8 H (1.5-7.7) 10^3/ul Absolute Lymphs (auto) 3.8 (1.0-4.8) 10^3/ul Absolute Monos (auto) 0.7 (0-0.8) 10^3/ul Absolute Eos (auto) 0 (0-0.6) 10^3/ul Absolute Basos (auto) 0.1 (0-0.2) 10^3/ul Absolute Nucleated RBC 0 10^3/ul Nucleated RBC % 0 Sodium 136 (133-145) mmol/L Potassium 3.6 (3.5-5.0) mmol/L Chloride 100 L (101-111) mmol/L Carbon Dioxide 30 (22-32) mmol/L Anion Gap 6 (2-11) mmol/L BUN 9 (6-24) mg/dL Creatinine 0.78 (0.51-0.95) mg/dL Est GFR ( Amer) 117.7 (>60) Est GFR (Non-Af Amer) 91.5 (>60) BUN/Creatinine Ratio 11.5 (8-20) Glucose 100 (70-100) mg/dL Calcium 9.6 (8.6-10.3) mg/dL Total Bilirubin 0.20 (0.2-1.0) mg/dL AST 17 (13-39) U/L ALT 22 (7-52) U/L Alkaline Phosphatase 91 (34-104) U/L Total Protein 7.4 (6.4-8.9) g/dL Albumin 4.0 (3.2-5.2) g/dL Globulin 3.4 (2-4) g/dL Albumin/Globulin Ratio 1.2 (1-3) TSH 6.11 H (0.34-5.60) mcIU/mL Salicylates < 2.50 (<30) mg/dL Acetaminophen < 15 mcg/mL Serum Alcohol < 10 (<10) mg/dL Result Diagrams: 11/19/17 21:50 01/02/18 21:50 Lab Statement: Any lab studies that have been ordered have been reviewed, and results considered in the medical decision making process. Course/Dx - Course Course Of Treatment: 21F presents with suicidal thought. She states she wants to commit suicide yesterday by sleeping out in the snow. She states she went outside to do such but she could not stand the cold so she came back in. She states that these thoughts have gotten worst over the past 2 weeks. She denies any drug or ETOH use. She states she feels that she is not on the appropriate medication. She states that she also cut herself a couple days ago. on exam superficial laceration of left arm. medically clear for MHE. patient signed out to dr collins pending for disposition. - Differential Dx/Clinical Impression Differential Diagnosis/HQI/PQRI: Positive: Depression, Suicide Attempt, Suicidal Ideation, Suicidal Gesture Provider Diagnosis: Depression Discharge - Discharge Plan Condition: Stable Disposition: OTHER Discharge Disposition Comment: signed out to dr collins pending E for disposition Referrals: Jass Pedroza MD [Primary Care Provider] -
[2017-11-20] MEDS ORDERED: Acetaminophen TAB* 325 MG PO PRN (10:34)
[2017-11-20] MEDS ORDERED: Al Hydrox/Mg Hydrox/Simet LIQ* 30 ML UDC PO PRN (10:34)
[2017-11-20] MEDS ORDERED: IPRATROPIUM RESP MDI INH PRN (10:36)
[2017-11-20] MEDS ORDERED: ALBUTEROL INH PRN (10:36)
[2017-11-20] MEDS ORDERED: Cetirizine* 10 MG TAB PO PRN (10:36)
[2017-11-20] MEDS ORDERED: hydrOXYzine HCL TAB* 50 MG PO PRN (10:38)
[2017-11-20] MEDS ORDERED: Nicotine GUM* 2 MG PO PRN (10:39)
[2017-11-20] MEDS ORDERED: Mouth Piece, Nicotine* 1 EACH CARTRIDGE INH PRN (10:39)
[2017-11-20] MEDS ORDERED: Nicotine Inhaler* 10 MG AMP INH PRN (10:39)
[2017-11-20] MEDS ORDERED: metFORMIN* 1,000 MG TAB ONE (10:52)
[2017-11-20] MEDS ORDERED: ALPRAZolam TAB* 0.5 MG PO PRN (10:56)
[2017-11-20] MEDS: metFORMIN* 1,000 MG TAB PO SCH ×2 (11:00→21:19)
--- NOTE | 2017-11-20 11:16 | UC ---
- Progress Note Progress Note: Pt voluntary admission to [facility] paperwork complete [facility] 11/20/2017 Dx depression - Consult/PCP Time Called: 19:45 Course/Dx - Course Course Of Treatment: 21F presents with suicidal thought. She states she wants to commit suicide yesterday by sleeping out in the snow. She states she went outside to do such but she could not stand the cold so she came back in. She states that these thoughts have gotten worst over the past 2 weeks. She denies any drug or ETOH use. She states she feels that she is not on the appropriate medication. She states that she also cut herself a couple days ago. on exam superficial laceration of left arm. medically clear for MHE. patient signed out to dr collins pending for disposition. - Diagnoses Provider Diagnoses: Depression
[2017-11-20 17:35] LABS: Urine Color Yellow
[2017-11-20 17:36] LABS: Urine Appearance Cloudy; Urine Blood Negative (Negative); Urine Ketones Negative (Negative); Urine Protein Negative (Negative); Urine Specific Gravity 1.014 (1.010-1.030); Urine Urobilinogen Negative (Negative)
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
[2017-11-20] MEDS ORDERED: busPIRone TAB* 15 MG PO SCH (21:00)
[2017-11-20] MEDS: ETHINYL ESTRADIOL PO SCH (21:16)
[2017-11-20] MEDS: NORGESTREL PO SCH (21:16)
[2017-11-20] MEDS: Gabapentin CAP(*) 300 MG PO SCH (21:17)
[2017-11-20] MEDS: Venlafaxine EXT RELEASE CAP* 75 MG PO SCH (21:18)
[2017-11-20] MEDS: busPIRone TAB* 15 MG PO SCH (21:19)
[2017-11-20] MEDS: Montelukast Sodium TAB* 10 MG PO SCH (21:19)
[2017-11-20] MEDS: Omeprazole CAP* 20 MG PO SCH (21:19)
[2017-11-21] MEDS: buPROPion SR TAB.SR* 100 MG PO SCH (08:49)
[2017-11-21] MEDS: metFORMIN* 1,000 MG TAB PO SCH ×2 (08:49→21:18)
[2017-11-21] MEDS: Gabapentin CAP(*) 300 MG PO SCH ×2 (08:49→21:18)
[2017-11-21] MEDS ORDERED: NF:Ipratropium HFA INHALER(NF) (ALTERNATIVE = NEBS) INH PRN (11:34)
[2017-11-21] MEDS: NORGESTREL PO SCH ×2 (11:35→21:19)
[2017-11-21] MEDS: ETHINYL ESTRADIOL PO SCH ×2 (11:35→21:19)
[2017-11-21] MEDS ORDERED: Albuterol HFA INHALER* 8 gm MDI INH PRN (11:52)
[2017-11-21] MEDS ORDERED: Albuterol/Ipratropium NEB.SOL* Albuterol 2.5 MG/Ipratropium 0.5 MG 3 ML INH PRN (11:52)
--- NOTE | 2017-11-21 15:08 | PN ---
Subjective - Subjective Service Type: 60592 Hosp care 25 min moderate complexity Subjective: Patient reports improved mood. She states she tends to become anxious and depressed when plans change without notice. She gives example of her mother being ill and not following through on outings with her. Patient denies side effects from medication change. She states she slept well from approx 10pm to 6am. She is motivated to have more consistent routines. Cost Accounting Clerk encourages her to also work on how to cope at home and be flexible when plans change. Patient denies SI or SIB urges. Objective - Appearance Appearance: Obese Dysmorphic Features: No Hygiene: Normal Grooming: Well Kept - Behavior Psychomotor Activities: Normal Exhibits Abnormal Movement: No - Attitude and Relatedness Attitude and Relatedness: Cooperative Eye Contact: Good - Speech Quality: Unpressured Plan - Plan Treatment Plan: Name: CALEB CARBALLO Birthdate: 1995 [id number] Continue acute intensive psychiatric treatment. Continue taper of buspirone and titration of wellbutrin. Decrease to q30min observation and allow staff pass. Tentative discharge tomorrow to target brief hospitalization. Continued Medication Management: Different Medication Medications: Current Medications Acetaminophen (Tylenol Tab*) 650 mg PO Q4H PRN PRN Reason: for pain; or Temp >101 F Al Hydrox/Mg Hydrox/Simethicone (Maalox Plus*) 30 ml PO Q4H PRN PRN Reason: INDIGESTION Albuterol (Ventolin Hfa Inhaler*) 2 puff INH Q6H PRN PRN Reason: SOB/WHEEZING Albuterol/Ipratropium (Duoneb (Albuterol 2.5 Mg/Ipratropium 0.5 Mg)) 1 neb INH Q6H PRN PRN Reason: SOB/WHEEZING Bupropion HCl (Wellbutrin Sr Tab*) 100 mg PO DAILY [facility] Last Admin: 11/21/17 08:49 Dose: 100 mg Buspirone HCl (Buspar Tab *) 15 mg PO BEDTIME [facility] Last Admin: 11/20/17 21:19 Dose: 15 mg Cetirizine HCl (Zyrtec*) 10 mg PO DAILY PRN; Protocol PRN Reason: Seasonal Allergies Device (Nicotine Mouth Piece*) 1 each INH .USE WITH NICOTROL PRN PRN Reason: CRAVING Gabapentin (Neurontin Cap(*)) 300 mg PO BID [facility] Last Admin: 11/21/17 08:49 Dose: 300 mg Lorazepam (Ativan Tab(*)) 1 mg PO BID PRN PRN Reason: ANXIETY Metformin HCl (Glucophage*) 1,000 mg PO BID [facility] Last Admin: 11/21/17 08:49 Dose: 1,000 mg Montelukast Sodium (Singulair Tab*) 10 mg PO BEDTIME [facility] Last Admin: 11/20/17 21:19 Dose: 10 mg Nicotine (Nicotine Inhaler*) 10 mg INH Q2H PRN PRN Reason: CRAVING Nicotine Polacrilex (Nicotine Gum*) 2 mg PO Q2H PRN PRN Reason: CRAVING Cmcs: (Ethinyl Estradiol And Norgestrel 1 Tab) 1 tab PO BEDTIME [facility] Omeprazole (Prilosec Cap*) 20 mg PO BEDTIME [facility] PRN Reason: Protocol Last Admin: 11/20/17 21:19 Dose: 20 mg Venlafaxine HCl (Effexor Xr Cap*) 225 mg PO BEDTIME [facility] Last Admin: 11/20/17 21:18 Dose: 225 mg - Discharge Plan Discharge Plan: Outpatient Follow Up Outpatient Program: [facility]
[2017-11-21] MEDS: Venlafaxine EXT RELEASE CAP* 75 MG PO SCH (21:17)
[2017-11-21] MEDS: Montelukast Sodium TAB* 10 MG PO SCH (21:18)
[2017-11-21] MEDS: Omeprazole CAP* 20 MG PO SCH (21:18)
[2017-11-21] MEDS: busPIRone TAB* 15 MG PO SCH (21:19)
[2017-11-22] MEDS: Gabapentin CAP(*) 300 MG PO SCH ×2 (09:13→21:05)
[2017-11-22] MEDS: metFORMIN* 1,000 MG TAB PO SCH ×2 (09:14→21:05)
[2017-11-22] MEDS: buPROPion SR TAB.SR* 100 MG PO SCH (09:14)
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
[2017-11-22] MEDS: NORGESTREL PO SCH (21:05)
[2017-11-22] MEDS: ETHINYL ESTRADIOL PO SCH (21:05)
[2017-11-22] MEDS: Montelukast Sodium TAB* 10 MG PO SCH (21:05)
[2017-11-22] MEDS: Venlafaxine EXT RELEASE CAP* 75 MG PO SCH (21:06)
[2017-11-22] MEDS: Omeprazole CAP* 20 MG PO SCH (21:06)
[2017-11-23] MEDS: Gabapentin CAP(*) 300 MG PO SCH ×2 (08:24→20:38)
[2017-11-23] MEDS: BuPROPion XL* 150 MG TAB.XL PO SCH (08:24)
[2017-11-23] MEDS: metFORMIN* 1,000 MG TAB PO SCH ×2 (08:24→20:37)
--- NOTE | 2017-11-23 16:09 | PN ---
Subjective - Subjective Date of Service: 11/23/17 Service Type: 07137 Hosp care 15 min low complexity Subjective: Doing well today. 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 She understand the issue now and waiting to be discharged on Mon. Objective - Appearance Appearance: Obese Dysmorphic Features: No Hygiene: Normal Grooming: Well Kept - Behavior Psychomotor Activities: Normal Exhibits Abnormal Movement: No - Attitude and Relatedness Attitude and Relatedness: Appropriate Eye Contact: Good - Speech Quality: Unpressured Latencies: Normal Quantity: Appropriate - Mood Patient's Decription of Mood: "Fine" - Affect Observed Affect: Non-labile Affect Consistent with: Euthymia - Thought Process Patient's Thought Process: Coherent, Goal Directed Thought Content: No Passive Wish, No Suicidal Planning, No Homicidal Ideation, No Paranoid Ideation - Sensorium Experiencing Hallucinations: No, Sensorium is Clear Type of Hallucinations: Visual: No, Auditory: No, Command: No - Level of Consciousness Level of Consciousness: Alert Orientation: Yes Intact, Yes Orientated to Time, Yes Orientated to Place, Yes Orientated to Person - Impulse Control Impulse Control: Intact - Insight and Judgement Insight and Judgement: Fair - Group Participation Particating in Group Activities: Yes - Medication Management Medication Management Adherence: Yes Assessment - Assessment Merits Inpatient Hospitalization: Consolidate Improvements, For Discharge Planning Inpatient DSM-IV Dx: unspecified depressive d/o; cluster B traits; PCOS; obesity ; migraine headaches Clinical Impression: Stable enough and safe for discharge. Plan - Plan Treatment Plan: Name: CALEB CARBALLO Birthdate: 1995 [id number] Continued Medication Management: Continue Outpt Medication Medications: Current Medications Acetaminophen (Tylenol Tab*) 650 mg PO Q4H PRN PRN Reason: for pain; or Temp >101 F Al Hydrox/Mg Hydrox/Simethicone (Maalox Plus*) 30 ml PO Q4H PRN PRN Reason: INDIGESTION Albuterol (Ventolin Hfa Inhaler*) 2 puff INH Q6H PRN PRN Reason: SOB/WHEEZING Albuterol/Ipratropium (Duoneb (Albuterol 2.5 Mg/Ipratropium 0.5 Mg)) 1 neb INH Q6H PRN PRN Reason: SOB/WHEEZING Bupropion HCl (Wellbutrin Xl *) 150 mg PO DAILY [facility] PRN Reason: Protocol Last Admin: 11/23/17 08:24 Dose: 150 mg Cetirizine HCl (Zyrtec*) 10 mg PO DAILY PRN; Protocol PRN Reason: Seasonal Allergies Device (Nicotine Mouth Piece*) 1 each INH .USE WITH NICOTROL PRN PRN Reason: CRAVING Gabapentin (Neurontin Cap(*)) 300 mg PO BID [facility] Last Admin: 11/23/17 08:24 Dose: 300 mg Lorazepam (Ativan Tab(*)) 1 mg PO BID PRN PRN Reason: ANXIETY Metformin HCl (Glucophage*) 1,000 mg PO BID [facility] Last Admin: 11/23/17 08:24 Dose: 1,000 mg Montelukast Sodium (Singulair Tab*) 10 mg PO BEDTIME [facility] Last Admin: 11/22/17 21:05 Dose: 10 mg Nicotine (Nicotine Inhaler*) 10 mg INH Q2H PRN PRN Reason: CRAVING Nicotine Polacrilex (Nicotine Gum*) 2 mg PO Q2H PRN PRN Reason: CRAVING Cmcs: (Ethinyl Estradiol And Norgestrel 1 Tab) 1 tab PO BEDTIME [facility] Last Admin: 11/22/17 21:05 Dose: 1 tab Omeprazole (Prilosec Cap*) 20 mg PO BEDTIME [facility] PRN Reason: Protocol Last Admin: 11/22/17 21:06 Dose: 20 mg Venlafaxine HCl (Effexor Xr Cap*) 225 mg PO BEDTIME [facility] Last Admin: 11/22/17 21:06 Dose: 225 mg - Discharge Plan Discharge Plan: Outpatient Follow Up Outpatient Program: [facility]
[2017-11-23] MEDS: NORGESTREL PO SCH (20:36)
[2017-11-23] MEDS: ETHINYL ESTRADIOL PO SCH (20:36)
[2017-11-23] MEDS: Omeprazole CAP* 20 MG PO SCH (20:37)
[2017-11-23] MEDS: Venlafaxine EXT RELEASE CAP* 75 MG PO SCH (20:37)
[2017-11-23] MEDS: Montelukast Sodium TAB* 10 MG PO SCH (20:38)
[2017-11-23] MEDS: LORazepam TAB(*) 1 MG PO PRN (22:28)
[2017-11-23] MEDS ORDERED: diPHENhydraMINE PO* 50 MG PO PRN (23:50)
[2017-11-24] MEDS: Gabapentin CAP(*) 300 MG PO SCH ×2 (08:13→20:19)
[2017-11-24] MEDS: BuPROPion XL* 150 MG TAB.XL PO SCH (08:13)
[2017-11-24] MEDS: metFORMIN* 1,000 MG TAB PO SCH ×2 (08:13→20:17)
[2017-11-24] MEDS ORDERED: diPHENhydraMINE PO* 25 MG PO PRN (12:57)
[2017-11-24] MEDS: LORazepam TAB(*) 1 MG PO PRN (16:06)
[2017-11-24] MEDS: Venlafaxine EXT RELEASE CAP* 75 MG PO SCH (20:17)
[2017-11-24] MEDS: ETHINYL ESTRADIOL PO SCH (20:17)
[2017-11-24] MEDS: NORGESTREL PO SCH (20:17)
[2017-11-24] MEDS: Omeprazole CAP* 20 MG PO SCH (20:18)
[2017-11-24] MEDS: Montelukast Sodium TAB* 10 MG PO SCH (20:18)
[2017-11-25] MEDS: BuPROPion XL* 150 MG TAB.XL PO SCH (08:29)
[2017-11-25] MEDS: Gabapentin CAP(*) 300 MG PO SCH (08:29)
[2017-11-25] MEDS: metFORMIN* 1,000 MG TAB PO SCH (08:29)
[2017-11-25 10:28] VITALS: BP 134/78
--- NOTE | 2017-11-26 05:10 | DS ---
CC: [facility]; Dr. Pedroza * DISCHARGE SUMMARY: DATE OF ADMISSION: 11/20/17 DATE OF DISCHARGE: 11/25/17 SUPERVISING PHYSICIAN: Alvaro Mohan MD * (DICTATED BY HARRISON SANCHEZ NP) DISCHARGE DIAGNOSES: 1. Unspecified depressive disorder. 2. Cluster B personality disorder. 3. Obesity. 4. Polycystic ovary syndrome. 5. Migraine headaches. CONDITION AT TIME OF DISCHARGE: Improved. The patient is euthymic and pleasant upon approach. She reports improved mood and denies suicidal ideation. She states that anxiety is improved since being on the unit and agrees to utilize gabapentin as needed. She states that when she takes as scheduled causes some mild sedation. The patient has coordinated with her family members and plans to return to her apartment today. 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 MENTAL STATUS EXAM: The patient is an obese white female who appears stated age. She is well groomed. Her hairs pulled back into a messy bun. She wearing spectacles and dressed in her own clothing. She sits on the edge of her bed, is cooperative and answers questions fully. She is alert and oriented x3. Concentration is good. Eye contact is good. Memory is 3/3. Her mood is "good. " Affect is right upon approach. Speech is normal rate rhythm and volume. Through process is logical and goal directed. Thought content is negative for SI or passive wish. She denies A/V hallucinations. There is no evidence of thought disorder. Her insight is good. Her judgement is good and her fund of knowledge is excellent. DISCHARGE INSTRUCTIONS: Discharge instructions are given to the patient. A. Medications: 1. Bupropion XL 150 mg p.o. q.a.m. 2. Gabapentin 300 mg p.o. b.i.d. p.r.n. anxiety. 3. She will continue alprazolam as previously prescribed by her outpatient psychiatrist. The patient denies need for refill at this time. 4. She will also continue venlafaxine XR at 225 mg daily. The following medications will be continued by Dr. Pedroza, her primary care provider: 1. Metformin 1000 mg b.i.d. 2. Singulair 10 mg daily. 3. Cryselle oral contraceptive pill daily. 4. Omeprazole 20 mg daily. 5. Zyrtec 10 mg daily. B. Diet is regular. C. Activities, ambulation as tolerated. Tobacco cessation assistance has been provided. There are no labs or diagnostic studies pending at the time of discharge. D. Followup care, the patient will follow up as needed with her primary care provider Dr. Pedroza. She will follow up with [facility] as needed for continued support. For her outpatient mental health services, she will follow up at the [facility]. She has an appointment with her therapist on 11/29/17 at 1:15 p.m. and her psychiatrist, Dr. Hudson on 12/06/17 at 10 a.m. E. Substance abuse followup is not applicable. HOSPITAL COURSE: A. Reason for admission: The patient presented to the emergency department voluntarily due to increased depression and anxiety, self injurious behavior and suicidal ideation. History of Present Illness: The patient is a 21-year-old white female with multiple previous psychiatric admissions. Most recent was in December 2012. She had been doing well with supportive services in the community over the last 5 years. Last year, she wanted to be more independent and transitioned to her own apartment. Since that time, she and her boyfriend have broken up and she reported increased depression and anxiety. She engaged in mild superficial lacerations on her left forearm for the first time in a few months. She endorsed suicidal ideation daily, which was intrusive to her. She was agreeable to voluntary hospitalization to the adult behavioral services unit. B. Psychiatric treatment rendered: While in the emergency department, the patient was medically cleared and obtained blood work. Her CBC was high with WBCs 14.3. Her CMP was grossly unremarkable with her TSH was high at 6.11 but her free T4 was normal at 0.65. Beta-hCG negative. Urinalysis within normal limits due to contaminated specimen, toxicology was positive for benzodiazepines as this is congruent with her outpatient prescriptions. Toxicology otherwise negative. The patient was admitted to adult behavioral services unit and placed on 15-minute checks for safety. She is full code status. She was encouraged to participate in supportive milieu, individual sessions with staff and psycho-educational groups. Upon psychiatric interview, the patient reported desire to change medications as it had been some time since she has had any psychiatric medication changes. She agreed to taper buspirone and utilize gabapentin to better target anxiety. She agreed to add Wellbutrin for depressed mood and neurovegetative symptoms. The patient tolerated medication changes well and reported improved mood, motivation, and anxiety. The patient was safe on all checks and decreased to q.30 minute observation. She was allowed to go on staff pass. The patient participated fully in groups and was interactive with staff and peers. 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 Due to this, she was given feedback to refrain from discussing treatment or interactions with peers that she knows from her employment position. The patient was also encouraged to prioritize her own treatment and identify her own skills and needs. On the day of discharge, the patient reported readiness for discharge. She denies suicidal ideation or passive wish. She agrees to follow up with outpatient services already in place. The patient was given discharge instructions by nursing staff, and her mother and younger sister are present for transportation home. HARRISON SANCHEZ NP [id number]/[facility] #: [id number] MARITZA
== END 2017-11-25 10:50 | disposition home or self-care (01) | DRG 881 ==
LOC: ED 19:44 → BSU 11-20 10:34
PROVIDERS: ADMIT Psychiatry & Neurology Psychiatry; ATTEND Psychiatry & Neurology Psychiatry
DX: F32.9 Major depressive disorder, single episode, unspecified (principal); Z68.43 Body mass index [BMI] 50.0-59.9, adult; E28.2 Polycystic ovarian syndrome; E78.5 Hyperlipidemia, unspecified; F41.9 Anxiety disorder, unspecified; K21.9 Gastro-esophageal reflux disease without esophagitis; F90.9 Attention-deficit hyperactivity disorder, unspecified type; F43.10 Post-traumatic stress disorder, unspecified; R40.2412 Glasgow coma scale score 13-15, at arrival to emergency department; G43.909 Migraine, unspecified, not intractable, without status migrainosus; Z62.810 Personal history of physical and sexual abuse in childhood; F12.90 Cannabis use, unspecified, uncomplicated; F60.89 Other specific personality disorders; E66.9 Obesity, unspecified; F17.210 Nicotine dependence, cigarettes, uncomplicated; J45.909 Unspecified asthma, uncomplicated; S41.112A Laceration without foreign body of left upper arm, initial encounter; X78.9XXA Intentional self-harm by unspecified sharp object, initial encounter; Z91.041 Radiographic dye allergy status; Z91.040 Latex allergy status; Z88.0 Allergy status to penicillin; Z88.2 Allergy status to sulfonamides; Z88.8 Allergy status to other drugs, medicaments and biological substances; Z91.018 Allergy to other foods; Z90.49 Acquired absence of other specified parts of digestive tract; Z86.19 Personal history of other infectious and parasitic diseases; Z82.5 Family history of asthma and other chronic lower respiratory diseases; Z81.8 Family history of other mental and behavioral disorders; Z72.89 Other problems related to lifestyle; Z79.84 Long term (current) use of oral hypoglycemic drugs; Z91.5 Personal history of self-harm; Y92.9 Unspecified place or not applicable
CPT/HCPCS: 36415; 80053; 80307; 80320; 80329; 81003; 81015; 84439; 84443; 84702; 85025; 87086; 99222; 99232; 99238; 99283; A9270-GY; G0480

== ENCOUNTER 2018-05-18 23:28 | Emergency (ER) | payer MEDICARE, MEDICAID ==
[2018-05-18] MEDS ORDERED: Ketorolac INJ* 60 MG/2 ML VIAL IM ONE (23:54)
--- NOTE | 2018-05-19 00:25 | ED ---
Back Pain - HPI Summary HPI Summary: Pt. is a 22 y.o female who presents to the ER for low back pain x 1 week. Pt. does not recall any falls or injury. She notes she has been dealing with right hip pain which she is seeing her PCP for and is waiting to start PT. Pt. states pain radiates into upper legs. She denies numbness, tingling or weakness. Denies bowel or bladder incontinence or retention. Pt. denies urinary symptoms, abd. pain, N/V/D. Pt. has tried taking naproxen and icy hot with minimal relief. Symptoms are mild in severity. Movement makes symptoms worse. Nothing makes symptoms better. - History of Current Complaint Chief Complaint: EDBackInjuryPain Stated Complaint: BACK PAIN Time Seen by Provider: 05/18/18 23:33 Hx Obtained From: Patient Hx Last Menstrual Period: 07/05/14 Pain Intensity: 7 - Allergies/Home Medications Allergies/Adverse Reactions: Allergies Allergy/AdvReac Type Severity Reaction Status Date / Time MS Coconut Oil [Coconut Oil] Allergy Severe Swelling Verified 11/24/17 08:40 Of Face,Lips,& Throat MS Prochlorperazine Allergy Severe Swelling Verified 11/24/17 08:40 [From Compazine] Of Face,Lips,& Throat MS Latex [Latex] Allergy Intermediate Rash Verified 11/24/17 08:40 MS Jovon Flavor Allergy Mild Hives Verified 11/24/17 08:40 [Utting Flavor] MS Dextromethorphan Allergy See Comment Verified 11/24/17 08:40 [From Mucinex DM] MS Guaifenesin Allergy See Comment Verified 11/24/17 08:40 [From Mucinex DM] MS Penicillins [PCN] Allergy Anaphylatic Verified 11/24/17 08:40 Shock MS Sulfa Antibiotics Allergy Rash Verified 11/24/17 08:40 [Sulfa Antibiotics] MS Yellow Dye Allergy See Comment Verified 11/24/17 08:40 [From Mucinex DM] Tree Nuts Allergy Swelling Verified 11/24/17 08:40 Of Face,Lips,& Throat almonds Allergy Swelling Uncoded 11/19/17 19:52 Of Face,Lips,& Throat Home Medications: Home Medications Oxycodone HCl/Acetaminophen [Oxycodone/Acetaminophen] 1 tab PO Q6H PRN 05/18/18 [History Confirmed 05/18/18] buPROPion TAB* [Wellbutrin TAB*] 200 mg PO BID 05/18/18 [History Confirmed 05/18] PMH/Surg Hx/FS Hx/Imm Hx Previously Healthy: Yes Endocrine/Hematology History: Denies: Hx Anticoagulant Therapy, Hx Diabetes, Hx Thyroid Disease Comment Only: Other Endocrine/Hematological Disorders - hx of PCOS Cardiovascular History: Denies: Hx Hypertension Respiratory History: Reports: Hx Asthma, Hx Pneumonia Denies: Hx Chronic Obstructive Pulmonary Disease (COPD) GI History: Reports: Hx Gastroesophageal Reflux Disease Denies: Hx Ulcer Musculoskeletal History: Denies: Hx Rheumatoid Arthritis, Hx Osteoporosis Sensory History: Reports: Hx Contacts or Glasses Denies: Hx Hearing Aid Opthamlomology History: Reports: Hx Contacts or Glasses Neurological History: Reports: Hx Migraine Psychiatric History: Reports: Hx Anxiety, Hx Attention Deficit Hyperactivity Disorder, Hx Depression, Hx Post Traumatic Stress Disorder, Hx Inpatient Treatment, Hx Bipolar Disorder, Hx Suicide Attempt Denies: Hx Eating Disorder - Surgical History Surgery Procedure, Year, and Place: gall bladder removed at age 15,several scopes Infectious Disease History: No Infectious Disease History: Reports: Hx Shingles Denies: Hx Hepatitis, Hx Human Immunodeficiency Virus (HIV), Traveled Outside the [place] in Last 30 Days - Family History Known Family History: Positive: Respiratory Disease - Social History Occupation: Disabled Lives: With Family Alcohol Use: Rare Hx Substance Use: No Substance Use Type: Reports: Marijuana Substance Use Comment - Amount & Last Used: occasionally Hx Tobacco Use: Yes Smoking Status (MU): Light Every Day Tobacco Smoker Have You Smoked in the Last Year: Yes Review of Systems Constitutional: Negative Negative: Fever, Chills Gastrointestinal: Negative Genitourinary: Negative Negative: burning, dysuria, flank pain Positive: Other - Low back pain Negative: Weakness, Paresthesia, Numbness All Other Systems Reviewed And Are Negative: Yes Physical Exam Triage Information Reviewed: Yes Vital Signs On Initial Exam: Initial Vitals Temp Pulse Resp BP Pulse Ox 98.1 F 107 18 142/90 95 05/18/18 23:34 05/18/18 23:34 05/18/18 23:34 05/18/18 23:34 05/18/18 23:34 Vital Signs Reviewed: Yes Appearance: Positive: Well-Appearing - Pt. sitting up in bed in NAD. Watching TV. Skin: Positive: Warm, Dry Head/Face: Positive: Normal Head/Face Inspection Eyes: Positive: Normal Neck: Positive: Supple Musculoskeletal: Positive: Other - 5/5 strength in bilateral LEs. Negative straight leg test bilaterally. Paraspinal right lumbar tenderness. Neurological: Positive: Normal, CN Intact II-III Psychiatric: Positive: Affect/Mood Appropriate Diagnostics - Vital Signs Vital Signs Temp Pulse Resp BP Pulse Ox 05/18/18 23:34 98.1 F 107 18 142/90 95 - Laboratory Lab Statement: Any lab studies that have been ordered have been reviewed, and results considered in the medical decision making process. Back Pain Course/Dx - Course Course Of Treatment: Pt. presenting for low back pain. She has no neurological deficits or signs of cauda equina syndrome. Pt. was given a dose of toradol. Noted to be walking in the halls without difficulty. Advised NSAIDS as directed. To f.u with PCP and PT as scheduled. - Diagnoses Provider Diagnoses: Lumbosacral pain Discharge - Sign-Out/Discharge Documenting (check all that apply): Discharge/Admit/Transfer - Discharge Plan Condition: Good Disposition: HOME Patient Education Materials: Low Back Strain (ED) Referrals: Jass Pedroza MD [Primary Care Provider] - Additional Instructions: Schedule a follow up appointment with PCP NSAIDS for pain as directed such as motrin Apply warm compresses to back Follow up with physical therapy as scheduled Return to ER if symptoms change or worsen - Billing Disposition and Condition Condition: GOOD Disposition: Home
[2018-05-19 00:58] VITALS: BP 143/92
== END 2018-05-19 00:15 | disposition home or self-care (01) ==
LOC: ED 23:28
DX: M54.5 Low back pain (principal); F17.200 Nicotine dependence, unspecified, uncomplicated; Z88.0 Allergy status to penicillin; Z88.3 Allergy status to other anti-infective agents; Z88.8 Allergy status to other drugs, medicaments and biological substances
CPT/HCPCS: 96372; 99282; J1885

== ENCOUNTER 2019-02-10 17:05 | Emergency (ER) | payer MEDICARE, MEDICAID ==
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
[2019-02-10 18:43] VITALS: BP 134/90
== END 2019-02-10 18:42 | disposition home or self-care (01) ==
LOC: ED 17:05
DX: S59.911A Unspecified injury of right forearm, initial encounter (principal); V18.2XXA Unspecified pedal cyclist injured in noncollision transport accident in nontraffic accident, initial encounter; Y93.55 Activity, bike riding; M25.421 Effusion, right elbow; F17.210 Nicotine dependence, cigarettes, uncomplicated; F90.9 Attention-deficit hyperactivity disorder, unspecified type; F41.9 Anxiety disorder, unspecified; F31.9 Bipolar disorder, unspecified; Z88.0 Allergy status to penicillin; Z88.8 Allergy status to other drugs, medicaments and biological substances; Z88.2 Allergy status to sulfonamides; Z91.040 Latex allergy status
CPT/HCPCS: 99282

== ENCOUNTER 2019-09-16 13:07 | Emergency (ER) | payer MEDICARE, MEDICAID ==
--- OUTSIDE RECORDS SUMMARY | 2019-09-16 13:32 | XMS REPORT | Continuity of Care Document ---
:1995 External Reference #:[id number] Author Name Sheri Moon NP Address [address] [facility] [place] [address] Care Team Providers Name Role Phone [facility] - Care Team Information Ict Sales Assistant [phone] Gastroenterology agricultural equipment sales manager - Obstetrics & Gynecology Care Team Information Ict Sales Assistant [phone] Maurisio Barry MD - Neurology Care Team Information Ict Sales Assistant [phone] Nisreen Santillan MD - Neurology Care Team Information Ict Sales Assistant [phone] [facility] - Interventional Pain Care Team Information Ict Sales Assistant [phone] Medicine Marvin Jorgensen - Endocrinology, Diabetes & Care Team Information Ict Sales Assistant Metabolism Edward Carmichael MD - Orthopaedic Care Team Information Ict Sales Assistant Surgery Danyel Sutton MD - Care Team Information Ict Sales Assistant [phone] Gastroenterology Vashti Allison - Obstetrics Care Team Information Ict Sales Assistant [phone] Problems Active Problems Provider Date Posttraumatic stress disorder Jass Pedroza M.D. 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 Onset: 06/23/2008 Depressive disorder Jass Pedroza M.D. Onset: 09/13/2011 Headache Jass Pedroza M.D. Onset: 02/28/2012 Morbid obesity Deyanira Laws M.D. Onset: 08/12/2014 Asthma without status asthmaticus Jass Pedroza M.D. Onset: 05/18/2015 Social History Type Date Description Comments Sex Unknown ETOH Use Denies alcohol use Recreational Drug Use Denies Drug Use Tobacco Use Start: Unknown Patient is a current 3 cigarettes a week, smoker, smokes some has quit down from days 12ppd Smoking Status Reviewed: 08/08/19 Patient is a current 3 cigarettes a week, smoker, smokes some has quit down from days 1/2ppd Allergies, Adverse Reactions, Alerts Active Allergies Reaction Severity Comments Date Sulfa Drugs 04/02/2005 Compazine 06/15/2008 C[place]ut 10/04/2009 carlos rash 08/09/2010 Latex rash 06/26/2011 Mucinex throat swelling per 03/18/2013 pt Esmeralda Suzan rash 09/15/2015 Milk-related Compounds Nausea and Vomiting 02/21/2017 Penicillin mouth and lip 07/04/2017 swelling Medications Active Medications SIG Qnty Indications Ordering Provider Date Tizanidine HCL 1 by mouth three 15caps M25.559 Sheri Dori 07/24/2018 4mg times a day as Moon, VEHICLE DYNAMICS ENGINEER Capsules needed for muscle spasms Ipratropium use bid- three 90ml Jass Pedroza, 11/29/2016 [place]/Albuterol times a day in M.D. Sulfate nebulizer as needed 0.5-2.5(3)mg/3ML Solution Albuterol Sulfate use three times a 1box J45.909 Kathrin 03/02/2015 day if needed Ricardo, PRINTING PRESS OPERATOR APPRENTICE (2.5mg/3ML) 0.083% Nebulizer Benadryl one by mouth katina Vargas M.D. 01/11/2015 25mg Tablets times a day as needed for hives. Pt can take at [facility] Proventil HFA 2 puffs every 6 1units J45.998 Jass Pedroza, 02/04/2014 hours as needed MShiloh 108(90Base) mcg/Act Aerosol Montelukast Sodium take one tablet 30tabs J30.9 Kathrin 12/04/2012 10mg by mouth at Ricardo, PRINTING PRESS OPERATOR APPRENTICE Tablets bedtime Xanax 1 twice a day as Unknown 02/22/2012 0.5mg Tablets needed Ibuprofen 2-3 po q 6 hrs Unknown 200mg Tablets prn pain Cetirizine HCL 1 by mouth every 30tabs Jass Pedroza, 10mg day M.D. Tablets Magnesium 1 by mouth every Unknown 400mg Tablets day Latuda 1 by mouth every Unknown 60mg Tablets day Dexilant Unknown 30mg Capsules DR Bupropion 1 by mouth every Unknown Hydrochloride ER (XL) day 300mg Tablets ER 24HR Medications Administered in Office Medication SIG Qnty Indications Ordering Provider Date Injection Medroxyprogesterone Jass Pedroza M.D. 10/14/2013 Acetate 1 ML (Depo-Provera) Injection Injection Subcutaneous Or Jass Pedroza M.D. 10/14/2013 Intramuscular Injection Injection Medeliyprogesterone Jass Pedroza M.D. 07/16/2013 Acetate 1 ML (Depo-Provera) Injection Injection Subcutaneous Or Jass Pedroza M.D. 07/16/2013 Intramuscular Injection Injection Subcutaneous Or Jass Pedroza M.D. 04/09/2013 Intramuscular Injection Immunizations CPT Code Status Date Vaccine Lot # [id number] Given 09/20/2018 Influenza Virus Vaccine, Recombinant Dna, [id number] [place] [address] Given 10/03/2014 DO Not Use Split Influenza Virus Vaccine 59527 Given 10/04/2009 Varicella (Chicken Pox) Immunization [id number] 52798 Given 09/23/2006 Tdap Tetanus, W Pertussis [id number] 79287 Given 11/29/1998 (IPV) Inactive Poliovirus Vaccine 25378 Given 11/29/1998 DTaP Immunization 83567 Given 11/19/1998 MMR Virus Immunization 65822 Given 12/05/1995 Varicella (Chicken Pox) Immunization 56110 Given 03/05/1995 MMR Virus Immunization 88935 Given 03/05/1995 (IPV) Inactive Poliovirus Vaccine 85103 Given 03/05/1995 DTP & Hib Immunization 68945 Given 06/14/1994 Hepatitis B Immunization, [place]-19 Years 43873 Given 06/14/1994 DTP & Hib Immunization 00284 Given 06/14/1994 (IPV) Inactive Poliovirus Vaccine 10109 Given 04/11/1994 DTP & Hib Immunization 34189 Given 04/11/1994 (IPV) Inactive Poliovirus Vaccine 18946 Given 02/14/1994 Hepatitis B Immunization, -19 Years 43956 Given 02/14/1994 DTP & Hib Immunization 78008 Given 02/14/1994 (IPV) Inactive Poliovirus Vaccine 46215 Given 1993 Hepatitis B Immunization, -19 Years Vital Signs Date Vital Result Comment 08/08/2019 10:26am BP Systolic 112 mmHg BP Diastolic 80 mmHg Heart Rate 80 /min Body Temperature 97.3 F Weight 296.00 lb 06/22/2019 10:53am BP Systolic 100 mmHg BP Diastolic 60 mmHg Heart Rate 96 /min Body Temperature 97.2 F Weight 296.00 lb Results Test Date Facility Test Result H/L Range Note Lipid Profile 07/07/2019 [facility]) Cholesterol 228 mg/dL High 120-200 Triglycerides 135 mg/dL 30-200 HDL Cholesterol 37 mg/dL 30-85 LDL (Calculated) 164 CALC High 0-129 VLDL Cholesterol 27 mg/dL 0-50 HDL Risk Factor 6.2 CALC High 0.0-4.4 Laboratory test 06/22/2019 [facility]) Free T4 0.82 ng/dL 0.75- 1.54 finding TSH 1.60 mIU/L 0.50-6.00 Comprehensive Metabolic 06/22/2019 [facility]) Sodium 139 mEq/L 134-149 Prof Potassium 4.3 mEq/L 3.6-5.5 Chloride 101 mEq/L 94-112 Carbon Dioxide 26 mEq/L 21-32 Glucose 102 mg/dL 70-105 BUN 10 mg/dL 6-26 Creatinine 0.9 mg/dL 0.6-1.4 BUN/Creat Ratio 11.1 CALC 8.0-36.0 Calcium 9.2 mg/dL 8.6-10.2 Total Protein 6.9 g/dL 6.4-8.3 Albumin 4.1 g/dL 3.8-5.5 Globulin 2.8 g/dL 2.0-4.8 A/G Ratio 1.5 CALC 0.6-2.3 Alk. Phosphatase 110 U/L 30-110 Alt (SGPT) 40 U/L High 7-35 1 Ast (Sgot) 25 U/L 5-34 Total Bilirubin 0.3 mg/dL 0.2-1.3 GFR Non- >60 ml/min/1.73m^ >=60 GFR >60 ml/min/1.73m^ >=60 CBC Electronic Fma 06/22/2019 [facility]) WBC 11.8 x10^3/UL High 4.0-10.0 RBC 4.99 x10^6/UL 3.93-6.00 HGB 13.7 g/dL 12.0-17.0 HCT 41 % 35-50 MCV 82.4 fL 80.0-95.0 MCH 27.5 pg 25.6-32.2 MCHC 33.3 g/dL 32.2-36.0 RDW-CV 14.2 % 11.6-14.4 PLT 361 x10^3/UL 163-400 MPV 9.1 fL Low 9.4-12.4 Carmelina# 8.12 x10^3/UL High 1.56-6.13 Lymph# 2.91 x10^3/UL 1.18-3.74 Charlton# 0.59 x10^3/UL 0.24-0.82 Eos # 0.0 x10^3/UL 0.0-0.5 Baso # 0.03 x10^3/UL 0.01-0.08 Carmelina% 68.5 % 34.0-70.0 Lymph % 24.6 % 20.0-52.0 Charlton% 5.0 % 5.0-12.0 Eos% 0.3 % Low 0.7-7.0 Baso% 0.3 % 0.1-1.2 Laboratory test finding 06/22/2019 [facility] , Serum negative (607)- - Hemoglobin A1c (Fma) 5.7% % 4.1-5.7 Laboratory test 06/22/2019 [facility] Prolactin 16.0 ng/mL 4.8-23.3 2 finding [address] [place] [address] (607)- - FSH, Serum 06/22/2019 [facility] FSH 5.9 mIU/mL 3 [address] [place] [address] (607)- - Laboratory test 03/31/2019 [facility] Hemoglobin A1c 5.6 % 4.1-5.7 finding (607)- - (Fma) Comprehensive 03/31/2019 [facility]) Sodium 136 mEq/L 134-149 Metabolic Prof Potassium 4.1 mEq/L 3.6-5.5 Chloride 96 mEq/L 94-112 Carbon Dioxide 23 mEq/L 21-32 Glucose 182 mg/dL High 70-105 4 BUN 6 mg/dL 6-26 Creatinine 1.0 mg/dL 0.6-1.4 BUN/Creat Ratio 6.0 CALC Low 8.0-36.0 Calcium 9.0 mg/dL 8.6-10.2 Total Protein 7.2 g/dL 6.4-8.3 Albumin 4.3 g/dL 3.8-5.5 Globulin 2.9 g/dL 2.0-4.8 A/G Ratio 1.5 CALC 0.6-2.3 Alk. Phosphatase 123 U/L High 30-110 Alt (SGPT) 74 U/L High 7-35 Ast (Sgot) 47 U/L High 5-34 Total Bilirubin 0.5 mg/dL 0.2-1.3 GFR Non- >60 ml/min/1.73m^ >=60 GFR >60 ml/min/1.73m^ >=60 CBC Electronic a 03/31/2019 [facility]) WBC 13.2 x10^3/UL High 4.0-10.0 RBC 5.27 x10^6/UL 3.93-6.00 HGB 14.2 g/dL 12.0-17.0 HCT 44 % 35-50 MCV 84.3 fL 80.0-95.0 MCH 26.9 pg 25.6-32.2 MCHC 32.0 g/dL Low 32.2-36.0 RDW-CV 13.7 % 11.6-14.4 PLT 438 x10^3/UL High 163-400 MPV 9.5 fL 9.4-12.4 Carmelina# 8.37 x10^3/UL High 1.56-6.13 Lymph# 3.95 x10^3/UL High 1.18-3.74 Charlton# 0.52 x10^3/UL 0.24-0.82 Eos # 0.1 x10^3/UL 0.0-0.5 Baso # 0.03 x10^3/UL 0.01-0.08 Carmelina% 63.7 % 34.0-70.0 Lymph % 30.0 % 20.0-52.0 Charlton% 4.0 % Low 5.0-12.0 Eos% 0.5 % Low 0.7-7.0 Baso% 0.2 % 0.1-1.2 1 consistent w/ previous results 2 1 serum pour off 3 Adult Female: Follicular phase 3.5 - 12.5 Ovulation phase 4.7 - 21.5 Luteal phase 1.7 - 7.7 Postmenopausal 25.8 - 134.8 4 NON-FASTING Procedures Description No Information Available Medical Devices Description No Information Available Encounters Type Date Location Provider Dx Diagnosis Office Visit 06/22/2019 [facility] Office Philomena Gonzalez, N91.2 Amenorrhea, 11:00a [facility] unspecified K75.81 Nonalcoholic steatohepatitis (Lu) R11.11 Vomiting without nausea Office Visit 03/13/2019 1:00p Main Office Kathrin Silva L72.3 Sebaceous cyst 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 classified 06/22/2019 N91.2 Amenorrhea, unspecified [facility] 06/22/2019 K75.81 Nonalcoholic steatohepatitis (Lu) [facility] 06/22/2019 R11.11 Vomiting without nausea [facility] 03/31/2019 R11.11 Vomiting without nausea Jass Pedroza M.D. 03/13/2019 L72.3 Sebaceous cyst ASHLYN Pappas Plan of Treatment Future Appointment(s):09/10/2019 6:30 pm - [facility] at [id number] - Sheri Moon NPM79.672 Pain in left footComments: RestIceCompressionElevation NSAIDs PRN pain return if worsening or failure to improve call your ortho back and follow up with PTK64.9 Unspecified hemorrhoidsNew Labs:Occult Blood Stool Test, Ordered: 08/08/19Comments:stay active losing weight helps reduce incidence stool cards explained patient instructed to call back if condition fails to improve or worsens. blood has resolved from what I can tell, if it returns call officeAllComments:Medication Management Patient Understands medications he 's taking? Yes No Are there Barriers to Adherence? Yes No Has the patient been asked about herbal supplements and therapies, andOTC meds? Yes No Care Plan1. Patient has been queried about patient's goals/preferences and functional/ lifestyle goals at relevant visits. If relevant, describe: na2. Treatment goals as explained to the patient: above3. Are there barriers to meeting treatment goals? Yes No If Yes, please describe: comorbid conditions, polypharmacy4. Self-Management goals as described to the patient: Yes NoAs always, we strongly encourage a healthy diet and making physical activity a part of your every day life. If you have questions about how or where to start , please contact the office. Functional Status Description No Information Available Mental Status Description No Information Available Referrals Refer to Reason for Referral Status Appt Date Peter Mistry MD sebaceous cyst-neck jw Scheduled 03/25/2019 [facility] [address] [place] [address] [place] [address] [phone] Danyel Sutton MD vomiting jw Scheduled 02/10/2019 [facility]. [address] [phone]
--- OUTSIDE RECORDS SUMMARY | 2019-09-16 13:32 | XMS REPORT | Continuity of Care Document ---
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 - Obstetrics & Gynecology Care Team Information Vat Tender [phone] Maurisio Barry MD - Neurology Care Team Information Vat Tender [phone] Nisreen Santillan MD - Neurology Care Team Information Vat Tender [phone] [facility] - Interventional Pain Care Team Information Vat Tender Medicine Marvin Jorgensen - Endocrinology, Diabetes & Care Team Information Vat Tender [phone] Metabolism Edward Carmichael MD - Orthopaedic Care Team Information Vat Tender [phone] Surgery Danyel Sutton MD - Care Team Information Vat Tender [phone] Gastroenterology Vashti Allison - Obstetrics Care Team Information Vat Tender [phone] Sary Hudson - Mental Health Care Team Information Vat Tender Unavailable Problems Active Problems Provider Date Posttraumatic stress [...] some has quit down from days 1/2ppd Smoking Status Reviewed: 09/10/19 Patient is a current 3 cigarettes a week, smoker, smokes some has quit down from days 12ppd Allergies, Adverse Reactions, Alerts Active Allergies Reaction Severity Comments Date Sulfa Drugs 04/02/2005 Compazine 06/15/2008 Coconut 10/04/2009 carlos rash 08/09/2010 Latex rash 06/26/2011 Mucinex throat swelling per 03/18/2013 pt [place] Suzan rash 09/15/2015 Milk-related Compounds Nausea and Vomiting 02/21/2017 Penicillin mouth and lip 07/04/2017 swelling Medications Active Medications SIG Qnty Indications Ordering Date Provider Tizanidine HCL 1 by mouth three 60caps M25.559 Jass Pedroza, 07/24/2018 4mg times a day as M.D. Capsules needed for muscle spasms Ipratropium use bid- three 90ml Jass Pedroza, 11/29/2016 [place]/Albuterol times a day in M.D. Sulfate nebulizer as needed 0.5-2.5(3)mg/3ML Solution Albuterol Sulfate use three times a 1box J45.909 Kathrin 03/02/2015 day if needed Ricardo, BAKERY HELPER (2.5mg/3ML) 0.083% Nebulizer Benadryl one by mouth katina Vargas M.D. 01/11/2015 25mg Tablets times a day as needed for hives. Pt can take at [facility] Proventil HFA 2 puffs every 6 1units J45.998 Jass Pedroza, 02/04/2014 hours as needed M.D. 108(90Base) mcg/Act Aerosol Montelukast Sodium take one tablet 30tabs J30.9 Opal Doe 12/04/2012 10mg by mouth at RENATA Perry Tablets bedtime Xanax 1 twice a day as Unknown 02/22/2012 0.5mg Tablets needed Fiber Adult Gummies 1 po qd Unknown Bupropion 1 by mouth every Unknown Hydrochloride ER (XL) day 300mg Tablets ER 24HR Dexilant Unknown 30mg Capsules DR Dasilva 1/2 by mouth Unknown 60mg Tablets every day Magnesium 1 by mouth every Unknown 400mg Tablets day Cetirizine HCL 1 by mouth every 30tabs Jass Pedroza, 10mg day M.D. Tablets Ibuprofen 2-3 by mouth 120tabs Jass AJose Pedroza, 200mg Tablets every 6 hours as M.D. needed pain History Medications Fluconazole one tab by mouth 2tabs L29.2 Opal Doe 09/03/2019 - 150mg once, march repeat in RENATA Perry 09/10/2019 Tablets five days Clindamycin insert one 80gm L29.2 Opal Doe 09/03/2019 - Phosphate applicatorful RENATA Perry 09/10/2019 2% Cream vaginally every night for 6 consectutive nights Terconazole insert one vaginally 3units B37.3 Opal Doe 08/27/2019 - 80mg at bedtime daily for RENATA Perry 09/03/2019 Suppository 3 days Medications Administered in Office Medication SIG Qnty [...] CPT Code Status Date Vaccine Lot # [id number] Given 09/03/2019 Influenza Vac, Quadrivalent, Slit Virus, Im [id number] 12275 Given 09/20/2018 Influenza Virus Vaccine, Recombinant Dna, [id number] [place] [address] Given 10/03/2014 DO Not Use Split Influenza Virus Vaccine 41786 Given 10/04/2009 Varicella (Chicken Pox) Immunization [id number] 10460 Given 09/23/2006 Tdap Tetanus, W Pertussis [id number] 47651 Given 11/29/1998 IPV Inactive Poliovirus Vaccine 26586 Given 11/29/1998 DTaP Immunization 04042 Given 11/19/1998 MMR Virus Immunization 48820 Given 12/05/1995 Varicella (Chicken Pox) Immunization 38431 Given 03/05/1995 MMR Virus Immunization 90450 Given 03/05/1995 IPV Inactive Poliovirus Vaccine 78447 Given 03/05/1995 DTP & Hib Immunization 52684 Given 06/14/1994 Hepatitis B Immunization, -19 Years 25465 Given 06/14/1994 DTP & Hib Immunization 70199 Given 06/14/1994 IPV Inactive Poliovirus Vaccine 72707 Given 04/11/1994 DTP & Hib Immunization 00889 Given 04/11/1994 IPV Inactive Poliovirus Vaccine 71916 Given 02/14/1994 Hepatitis B Immunization, -19 Years 18867 Given 02/14/1994 DTP & Hib Immunization 06520 Given 02/14/1994 IPV Inactive Poliovirus Vaccine 82041 Given 1993 Hepatitis B Immunization, -19 Years Vital Signs Date Vital Result Comment 09/10/2019 4:58pm BP Systolic 112 mmHg BP Diastolic 64 mmHg Heart Rate 84 /min Body Temperature 99.5 F Respiratory Rate 16 /min Height 61.25 inches 5'1.25" Weight 291.00 lb BMI (Body Mass Index) 54.5 kg/m2 09/03/2019 1:13pm BP Systolic 118 mmHg BP Diastolic 70 mmHg Heart Rate 88 /min Body Temperature 98.7 F Respiratory Rate 16 /min Height 61.25 inches 5'1.25" Weight 296.00 lb BMI (Body Mass Index) 55.5 kg/m2 Results Test Date Facility Test Result H/L Range Note Laboratory test [facility](fma) Direct <pending> 0-0.6 finding 9 Bilirubin Marielena Panel--LD [facility] Rheumatoid <pending> ([facility]) 9 Factor Laboratory test [facility] Prolactin 18.6 ng/mL Normal 1.0-25.0 1 finding 9 Vaginitis Plus [facility] Trich vag by Negative Negative 2 Nuswab [address] [place] [address] (607)- - Chlamydia trachomatis, Herlinda Negative Negative Neisseria gonorrhoeae, Herlinda Negative Negative Atopobium vaginae Low - 0 Score Bvab 2 Low - 0 Score Megasphaera 1 Low - 0 Score 3 Abbey albicans, Herlinda Negative Negative Abbey glabrata, Herlinda Negative Negative 4 Ict Hemoccult (Fma) 08/21/2019 [facility] Medicine Ict Hemoccult (1) 08/08/19 Neg. (607)- - Ict Hemoccult-(2) 08/09/19 Neg. Ict-Hemoccult (3) 08/10/19 Neg. Lipid Profile 07/07/2019 [facility](fma) Cholesterol 228 mg/dL High 120-200 Triglycerides 135 mg/dL 30-200 HDL Cholesterol 37 mg/dL 30-85 LDL (Calculated) 164 CALC High 0-129 VLDL Cholesterol 27 mg/dL 0-50 HDL Risk Factor 6.2 CALC High 0.0-4.4 Laboratory test 06/22/2019 [facility](fma) Free T4 0.82 ng/dL 0.75- 1.54 finding TSH 1.60 mIU/L 0.50-6.00 Comprehensive Metabolic 06/22/2019 [facility](fma) Sodium 139 mEq/L 134-149 Prof Potassium 4.3 [...] 30-110 Alt (SGPT) 40 U/L High 7-35 5 Ast (Sgot) 25 U/L 5-34 Total Bilirubin 0.3 mg/dL 0.2-1.3 GFR Non- >60 ml/min/1.73m^ >=60 GFR >60 ml/min/1.73m^ >=60 CBC Electronic Fma 06/22/2019 [facility](fma) WBC 11.8 x10^3/UL High 4.0-10.0 RBC 4.99 x10^6/UL 3.93-6.00 HGB 13.7 g/dL 12.0-17.0 HCT 41 % 35-50 MCV 82.4 fL 80.0-95.0 MCH 27.5 pg 25.6-32.2 MCHC 33.3 g/dL 32.2-36.0 RDW-CV 14.2 % 11.6-14.4 PLT 361 x10^3/UL 163-400 MPV 9.1 fL Low 9.4-12.4 Carmelina# 8.12 x10^3/UL High 1.56-6.13 Lymph# 2.91 x10^3/UL 1.18-3.74 Bartholomew# 0.59 x10^3/UL 0.24-0.82 Eos # 0.0 x10^3/UL 0.0-0.5 Baso # 0.03 x10^3/UL 0.01-0.08 Carmelina% 68.5 % 34.0-70.0 Lymph % 24.6 % 20.0-52.0 Bartholomew% 5.0 % 5.0-12.0 Eos% 0.3 % Low 0.7-7.0 Baso% 0.3 % 0.1-1.2 Laboratory test finding 06/22/2019 Family [facility] , Serum negative (607)- - Hemoglobin A1c (Fma) 5.7% % 4.1-5.7 Laboratory test 06/22/2019 [facility] Prolactin 16.0 ng/mL 4.8-23.3 6 finding [address] [place] [address] (607)- - FSH, Serum 06/22/2019 [facility] FSH 5.9 mIU/mL [address] [place] [address] (607)- - Laboratory test 03/31/2019 [facility] Hemoglobin A1c 5.6 % 4.1-5.7 finding (607)- - (Fma) Comprehensive 03/31/2019 [facility] Pat(fma) Sodium 136 mEq/L 134-149 Metabolic Prof Potassium 4.1 mEq/L 3.6-5.5 Chloride 96 mEq/L 94-112 Carbon Dioxide 23 mEq/L 21-32 Glucose 182 mg/dL High 70-105 8 BUN 6 mg/dL 6-26 Creatinine 1.0 mg/dL [...] ml/min/1.73m^ >=60 CBC Electronic a 03/31/2019 [facility](a) WBC 13.2 x10^3/UL High 4.0-10.0 RBC 5.27 x10^6/UL 3.93-6.00 HGB 14.2 g/dL 12.0-17.0 HCT 44 % 35-50 MCV 84.3 fL 80.0-95.0 MCH 26.9 pg 25.6-32.2 MCHC 32.0 g/dL Low 32.2-36.0 RDW-CV 13.7 % 11.6-14.4 PLT 438 x10^3/UL High 163-400 MPV 9.5 fL 9.4-12.4 Carmelina# 8.37 x10^3/UL High 1.56-6.13 Lymph# 3.95 x10^3/UL High 1.18-3.74 Bartholomew# 0.52 x10^3/UL 0.24-0.82 Eos # 0.1 x10^3/UL 0.0-0.5 Baso # 0.03 x10^3/UL 0.01-0.08 Carmelina% 63.7 % 34.0-70.0 Lymph % 30.0 % 20.0-52.0 Bartholomew% 4.0 % Low 5.0-12.0 Eos% 0.5 % Low 0.7-7.0 Baso% 0.2 % 0.1-1.2 1 1 serum pour off from red top tube refrigerated [id number] 2 1 orange aptima 3 Calculate total score by adding the 3 individual bacterial vaginosis (BV) marker scores together. Total score is interpreted as follows: Total score 0-1: Indicates the absence of BV. Total score 2: Indeterminate for BV. Additional clinical data should be evaluated to establish a diagnosis. Total score 3-6: Indicates the presence of BV. This test was developed and its performance characteristics determined by [facility]. It has not been cleared or approved by the Food and Drug Administration. The FDA has determined that such clearance or approval is not necessary. 4 This test was developed and its performance characteristics determined by [facility]. It has not been cleared or approved by the Food and Drug Administration. The FDA has determined that such clearance or approval is not necessary. 5 consistent w/ previous results 6 1 serum pour off 7 Adult Female: Follicular phase 3.5 - 12.5 Ovulation phase 4.7 - 21.5 Luteal phase 1.7 - 7.7 Postmenopausal 25.8 - 134.8 8 NON-FASTING Procedures Description No Information Available Medical Devices Description No Information Available Encounters Type Date Location Provider Dx Diagnosis Office Visit 09/03/2019 1:30p Main Office Opal Perry NP L29.2 Pruritus vulvae Z23 Encounter for immunization F33.9 Major depressive disorder, recurrent, unspecified Office Visit 08/27/2019 6:15p Main Office Opal Doe B37.3 Candidiasis of RENATA Perry vulva and vagina Office Visit 08/20/2019 2:40p Main Office Jass Pedroza, G44.219 Episodic M.D. tension-type headache, not intractable Office Visit 08/08/2019 10:30a Main Office Sheri Meadows M79.672 Pain in left foot RENATA Moon K64.9 Unspecified hemorrhoids Office Visit 06/22/2019 11:00a [facility] Office Philomena Lezama N91.2 Amenorrhea, GILLES Gonzalez unspecified K75.81 Nonalcoholic steatohepatitis (Lu) R11.11 Vomiting without nausea Office Visit 03/13/2019 1:00p Main Office Kathrin Silva, L72.3 Sebaceous cyst BAKERY HELPER Assessments Date Code Description Provider 09/10/2019 R94.5 Abnormal results of liver function studies GILLES Mccray 09/10/2019 E28.2 Polycystic ovarian syndrome GILLES Mccray 09/10/2019 M79.672 Pain in left foot GILLES Mccray 09/10/2019 M79.671 Pain in right foot GILLES Mccray 09/10/2019 R19.7 Diarrhea, unspecified GILLES Mccray 09/03/2019 L29.2 Pruritus vulvae Opal Perry NP 09/03/2019 Z23 Encounter for immunization Opal Perry NP 09/03/2019 F33.9 Major depressive disorder, recurrent, Opal Perry NP unspecified 08/27/2019 B37.3 Candidiasis of vulva and vagina Opal Perry NP 08/21/2019 K64.9 Unspecified hemorrhoids Sheri Moon, RENATA 08/20/2019 G44.219 Episodic tension-type headache, not Jass Pedroza M.D. intractable 08/08/2019 M79.672 Pain in left foot Sheri Moon, RENATA 08/08/2019 K64.9 Unspecified hemorrhoids Sheri Moon, RENATA 07/07/2019 K76.0 Fatty (change of) liver, not elsewhere Jass Pedroza M.D. classified 06/22/2019 N91.2 Amenorrhea, unspecified GILLES Mccray 06/22/2019 K75.81 Nonalcoholic steatohepatitis (Lu) GILLES Mccray 06/22/2019 R11.11 Vomiting without nausea GILLES Mccray 03/31/2019 R11.11 Vomiting without nausea Jass Pedroza M.D. 03/13/2019 L72.3 Sebaceous cyst ASHLYN Pappas Plan of Treatment Future Appointment(s):12/17/2019 5:00 pm - GILLES Mccray at Main [id number] - Philomena Gonzalez, PAR94.5 Abnormal results of liver function studiesComments:Check liver function tests.E28.2 Polycystic ovarian syndromeComments:Prolactin level normal. See Dr. Allison for follow up if periods don't jlmsvjE41.672 Pain in left footComments:Please see physical therapy for the pain in your feet. Use Ibuprofen, ice for the pain. Call if symptoms [id number] Pain in right footR19.7 Diarrhea, unspecifiedComments: Increase metamucil use and fiber in diet- vegetables, fruits. Focus on daily movement- daily walksAllComments:PCMHMedication Management Patient Understands medications he's taking? Yes Are there Barriers to Adherence? No Has the patient been asked about herbal supplements and therapies, and OTC meds ? Yes Care Plan1. Patient has been queried about patient's goals/ preferences and functional/lifestyle goals at relevant visits. Yes If relevant, describe: N/A2. Treatment goals as explained to the patient: above3. Are there barriers to meeting treatment goals? No If Yes, please describe:4. Self-Management goals as described to the patient: Yes As always, we strongly encourage a healthy diet and making physical activity a part of your every day life. If you have questions about how or where to start, please contact the office.Follow up:3 months Functional Status Description No Information Available Mental Status Description No Information Available Referrals Refer to Reason for Referral Status Appt Date Peter Mistry MD sebaceous cyst-neck jw Scheduled 03/25/[facility] [address] [place] [address] [address] [place] [address] [phone]
--- OUTSIDE RECORDS SUMMARY | 2019-09-16 13:32 | XMS REPORT | Continuity of Care Document ---
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 - Obstetrics & Gynecology Care Team Information Linen Aide [phone] Maurisio Barry MD - Neurology Care Team Information Linen Aide [phone] Nisreen Santillan MD - Neurology Care Team Information Linen Aide [phone] [facility] Pain [facility] - Interventional Pain Care Team Information Linen Aide Medicine Marvin Jorgensen - Endocrinology, Diabetes & Care Team Information Linen Aide Metabolism Edward Carmichael MD - Orthopaedic Care Team Information Linen Aide [phone] Surgery Danyel Sutton MD - Care Team Information Linen Aide [phone] Gastroenterology Vashti Allison - Obstetrics Care Team Information Linen Aide [phone] Problems Active Problems Provider Date Posttraumatic stress [...] 06/26/2011 Mucinex throat swelling per 03/18/2013 pt [place] Suzan rash 09/15/2015 Milk-related Compounds Nausea and Vomiting 02/21/2017 Penicillin mouth and lip 07/04/2017 swelling Medications Active Medications SIG Qnty Indications Ordering Date Provider Terconazole insert one 3units B37.3 Opal Doe 08/27/2019 80mg vaginally at RENATA Perry Suppository bedtime daily for 3 days Tizanidine HCL 1 by mouth three 60caps M25.559 Jass Pedroza, 07/24/2018 4mg times a day as M.D. Capsules needed for muscle spasms Ipratropium use bid- three 90ml Jass Pedroza, 11/29/2016 [place]/Albuterol times a day in M.D. Sulfate nebulizer as needed 0.5-2.5(3)mg/3ML Solution Albuterol Sulfate use three times a 1box J45.909 Kathrin 03/02/2015 day if needed [facility], MEDICAL LAB TECHNICIAN (2.5mg/3ML) 0.083% Nebulizer Benadryl one by mouth katina Vargas M.D. 01/11/2015 25mg Tablets times a day as needed for hives. Pt can take at [facility] Proventil HFA 2 puffs every 6 1units J45.998 Jass Pedroza, 02/04/2014 hours as needed M.D. 108(90Base) mcg/Act Aerosol Montelukast Sodium take one tablet 30tabs J30.9 Kathrin 12/04/2012 10mg by mouth at [facility], MEDICAL LAB TECHNICIAN Tablets bedtime Xanax 1 twice a day as Unknown 02/22/2012 0.5mg Tablets needed Ibuprofen 2-3 by mouth 120tabs Jass Pedroza, 200mg Tablets every 6 hours as M.D. needed pain Cetirizine HCL 1 by mouth every 30tabs Jass Pedroza, 10mg day M.D. Tablets Magnesium 1 by mouth every Unknown 400mg Tablets day Latuda 1 by mouth every Unknown 60mg Tablets day Dexilant Unknown 30mg Capsules DR Bupropion 1 by mouth every Unknown Hydrochloride ER (XL) day 300mg Tablets ER 24HR Fiber Adult Gummies 1 po qd Unknown Medications Administered in Office Medication SIG Qnty Indications Ordering Provider Date Injection Medroxyprogesterone Jass Pedroza M.D. 10/14/2013 Acetate 1 ML (Depo-Provera) Injection Injection Subcutaneous Or Jass Pedroza M.D. 10/14/2013 Intramuscular Injection Injection Medeliyprogestergerardo Pedroza M.D. 07/16/2013 Acetate 1 ML (Depo-Provera) Injection Injection Subcutaneous Or Jass Pedroza M.D. 07/16/2013 Intramuscular Injection Injection Subcutaneous Or Jass Pedroza M.D. 04/09/2013 Intramuscular Injection Immunizations CPT Code Status Date Vaccine Lot # [id number] Given 09/20/2018 Influenza Virus Vaccine, Recombinant Dna, [id number] [place] [address] Given 10/03/2014 DO Not Use Split Influenza Virus Vaccine 89425 Given 10/04/2009 Varicella (Chicken Pox) Immunization [id number] 44759 Given 09/23/2006 Tdap Tetanus, W Pertussis [id number] 90369 Given 11/29/1998 IPV Inactive Poliovirus Vaccine 27334 Given 11/29/1998 DTaP Immunization 56250 Given 11/19/1998 MMR Virus Immunization 18664 Given 12/05/1995 Varicella (Chicken Pox) Immunization 09236 Given 03/05/1995 MMR Virus Immunization 54984 Given 03/05/1995 IPV Inactive Poliovirus Vaccine 94719 Given 03/05/1995 DTP & Hib Immunization 79327 Given 06/14/1994 Hepatitis B Immunization, [place]-19 Years 84294 Given 06/14/1994 DTP & Hib Immunization 38518 Given 06/14/1994 IPV Inactive Poliovirus Vaccine 56156 Given 04/11/1994 DTP & Hib Immunization 52622 Given 04/11/1994 IPV Inactive Poliovirus Vaccine 49816 Given 02/14/1994 Hepatitis B Immunization, -19 Years 70814 Given 02/14/1994 DTP & Hib Immunization 60969 Given 02/14/1994 IPV Inactive Poliovirus Vaccine 70705 Given 1993 Hepatitis B Immunization, [place]-19 Years Vital Signs Date Vital Result Comment 08/27/2019 5:42pm BP Systolic 110 mmHg BP Diastolic 60 mmHg Heart Rate 76 /min Body Temperature 99.1 F Respiratory Rate 16 /min Height 61.25 inches 5'1.25" Weight 296.00 lb BMI (Body Mass Index) 55.5 kg/m2 08/20/2019 2:43pm BP Systolic 114 mmHg BP Diastolic 72 mmHg Heart Rate 72 /min Body Temperature 98.4 F Respiratory Rate 16 /min Height 61.25 inches 5'1.25" Weight 296.00 lb BMI (Body Mass Index) 55.5 kg/m2 Results Test Date Facility Test Result H/L Range Note Ict Hemoccult 08/21/2019 [facility] Ict Hemoccult 08/08/19 Neg. (Fma) (607)- - (1) Ict Hemoccult-(2) 08/09/19 Neg. Ict-Hemoccult (3) 08/10/19 Neg. Lipid Profile 07/07/2019 [facility](a) Cholesterol 228 mg/dL High 120-200 Triglycerides 135 mg/dL 30-200 HDL Cholesterol 37 mg/dL 30-85 LDL (Calculated) 164 CALC High 0-129 VLDL Cholesterol 27 mg/dL 0-50 HDL Risk Factor 6.2 CALC High 0.0-4.4 Laboratory test 06/22/2019 [facility](a) Free T4 0.82 ng/dL 0.75- 1.54 finding TSH 1.60 mIU/L 0.50-6.00 Comprehensive Metabolic 06/22/2019 [facility](a) Sodium 139 mEq/L 134-149 Prof Potassium 4.3 [...] GFR >60 ml/min/1.73m^ >=60 CBC Electronic a 06/22/2019 [facility]) WBC 11.8 x10^3/UL High 4.0-10.0 RBC 4.99 x10^6/UL 3.93-6.00 HGB 13.7 g/dL 12.0-17.0 HCT 41 % 35-50 MCV 82.4 fL 80.0-95.0 MCH 27.5 pg 25.6-32.2 MCHC 33.3 g/dL 32.2-36.0 RDW-CV 14.2 % 11.6-14.4 PLT 361 x10^3/UL 163-400 MPV 9.1 fL Low 9.4-12.4 Carmelina# 8.12 x10^3/UL High 1.56-6.13 Lymph# 2.91 x10^3/UL 1.18-3.74 [place]# 0.59 x10^3/UL 0.24-0.82 Eos # 0.0 x10^3/UL 0.0-0.5 Baso # 0.03 x10^3/UL 0.01-0.08 Carmelina% 68.5 % 34.0-70.0 Lymph % 24.6 % 20.0-52.0 [place]% 5.0 % 5.0-12.0 Eos% 0.3 % Low 0.7-7.0 Baso% 0.3 % 0.1-1.2 Laboratory test finding 06/22/2019 [facility] , Serum negative (607)- - Hemoglobin A1c (Fma) 5.7% % 4.1-5.7 Laboratory test 06/22/2019 [facility] Prolactin 16.0 ng/mL 4.8-23.3 2 finding [address] [place] [address] (607)- - FSH, Serum 06/22/2019 [facility] FSH 5.9 mIU/mL 3 [address] [place] [address] (607)- - Laboratory test 03/31/2019 [facility] Hemoglobin A1c 5.6 % 4.1-5.7 finding (607)- - (Fma) Comprehensive 03/31/2019 [facility]) Sodium 136 mEq/L 134-149 Metabolic Prof Potassium [...] High 1.56-6.13 Lymph# 3.95 x10^3/UL High 1.18-3.74 [place]# 0.52 x10^3/UL 0.24-0.82 Eos # 0.1 x10^3/UL 0.0-0.5 Baso # 0.03 x10^3/UL 0.01-0.08 Carmelina% 63.7 % 34.0-70.0 Lymph % 30.0 % 20.0-52.0 [place]% 4.0 % Low 5.0-12.0 Eos% 0.5 % [...] Date Location Provider Dx Diagnosis Office Visit 08/20/2019 Main Office Jass Pedroza, G44.219 Episodic 2:40p M.D. 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 03/13/2019 L72.3 Sebaceous cyst ASHLYN Pappas Plan of Treatment Future Appointment(s):09/10/2019 6:30 pm - GILLES Mccray at Main Tspwam7608/2019 - Opal Perry, NPB37.3 Candidiasis of vulva and vaginaNew Medication:Terconazole 80 mg - insert one vaginally at bedtime daily for 3 daysNew Labs:Nuswab VG+, Ordered: 08/27/19Comments:Call EMA if condition changes/worsens in any wayAllComments:1. Patient has been queried about patient 's goals/preferences and functional/lifestyle goals at relevant visits. If relevant, describe: Has been discussed, noted above2. Treatment goals as explainedto the patient: see above3. Are there barriers to meeting treatment goals? Yes If Yes, please describe: Barriers include possible insurance limits, disease process, and difficulty with lifestyle changes4. Self- Management goals as described to the patient: Yes, see above As always, we strongly encourage a healthy diet and making physical activity a part of your every day life. If you have questions about how or where to start, please contact the office. Functional Status Description No Information Available Mental Status Description No Information Available Referrals Refer to Reason for Referral Status Appt Date Peter Mistry MD sebaceous cyst-neck jw Scheduled 03/25/2019 [facility] [address] [facility] [place] [address] [place] [address] [phone]
--- OUTSIDE RECORDS SUMMARY | 2019-09-16 13:32 | XMS REPORT | Continuity of Care Document ---
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 - Obstetrics & Gynecology Care Team Information Account Supervisor Maurisio Barry MD - Neurology Care Team Information Account Supervisor [phone] Nisreen Santillan MD - Neurology Care Team Information Account Supervisor [phone] [facility] - Interventional Pain Care Team Information Account Supervisor Medicine Marvin Jorgensen - Endocrinology, Diabetes & Care Team Information Account Supervisor [phone] Metabolism Edward Carmichael MD - Orthopaedic Care Team Information Account Supervisor [phone] Surgery Danyel Sutton MD - Care Team Information Account Supervisor [phone] Gastroenterology Vashti Allison - Obstetrics Care Team Information Account Supervisor [phone] Problems Active Problems Provider Date Posttraumatic stress [...] 06/26/2011 Mucinex throat swelling per 03/18/2013 pt [facility] rash 09/15/2015 Milk-related Compounds Nausea and Vomiting 02/21/2017 Penicillin mouth and lip 07/04/2017 swelling Medications Active Medications SIG Qnty Indications Ordering Date Provider Fluconazole one tab by mouth 2tabs L29.2 Opal Doe 09/03/2019 150mg once, may repeat in RENATA Perry Tablets five days Clindamycin insert one 80gm L29.2 Opal Doe 09/03/2019 Phosphate applicatorful RENATA Perry 2% Cream vaginally every night for 6 consectutive nights Tizanidine HCL 1 by mouth three 60caps M25.559 Jass Guo 07/24/2018 4mg times a day as Libby Pedroza Capsules needed for muscle spasms Ipratropium use bid- three times 90ml Jass AJose 11/29/2016 [place]/Albuterol a day in nebulizer Libby Pedroza Sulfate as needed 0.5-2.5(3)mg/3ML Solution Albuterol Sulfate use three times a 1box J45.909 Kathrin 03/02/2015 day if needed Ricardo, EDI SPECIALIST (2.5mg/3ML) 0.083% Nebulizer Benadryl one by mouth four Sarbjit Vargas M.D. 01/11/2015 25mg Tablets times a day as needed for hives. Pt can take at [facility] Proventil HFA 2 puffs every 6 1units J45.998 Jass Guo 02/04/2014 hours as needed Libby Pedroza 108(90Base) mcg/Act Aerosol Montelukast Sodium take one tablet by 30tabs J30.9 Opal Doe 12/04/2012 mouth at bedtime RENATA Perry 10mg Tablets Xanax 1 twice a day as Unknown 02/22/2012 0.5mg Tablets needed Ibuprofen 2-3 by mouth every 6 120tabs Jass A. 200mg hours as needed pain Libby Pedroza Tablets Cetirizine HCL 1 by mouth every day 30tabs Jass A. 10mg Libby Pedroza Tablets Magnesium 1 by mouth every day Unknown 400mg Tablets Latuda 1/2 by mouth every Unknown 60mg Tablets day Dexilant Unknown 30mg Capsules DR Bupropion 1 by mouth every day Unknown Hydrochloride ER (XL) 300mg Tablets ER 24HR Fiber Adult Gummies 1 po qd Unknown History Medications Terconazole insert one 3units B37.3 Opal Doe 08/27/2019 - 80mg vaginally at RENATA Perry 09/03/2019 Suppository bedtime daily for 3 days Medications Administered in Office Medication SIG Qnty Indications Ordering Provider Date Injection Medroxyprogesterone Jass Pedroza M.D. 10/14/2013 Acetate 1 ML (Depo-Provera) Injection Injection Subcutaneous Or Jass Pedroza M.D. 10/14/2013 Intramuscular Injection Injection Sigifredo Pedroza M.D. 07/16/2013 Acetate 1 ML (Depo-Provera) Injection Injection Subcutaneous Or Jass Pedroza M.D. 07/16/2013 Intramuscular Injection Injection Subcutaneous Or Jass Pedroza M.D. 04/09/2013 Intramuscular Injection Immunizations CPT Code Status Date Vaccine Lot # [id number] Given 09/20/2018 Influenza Virus Vaccine, Recombinant Dna, [id number] [place] [address] Given 10/03/2014 DO Not Use Split Influenza Virus Vaccine 87075 Given 10/04/2009 Varicella (Chicken Pox) Immunization [id number] 13347 Given 09/23/2006 Tdap Tetanus, W Pertussis [id number] 35869 Given 11/29/1998 IPV Inactive Poliovirus Vaccine 60076 Given 11/29/1998 DTaP Immunization 22967 Given 11/19/1998 MMR Virus Immunization 52610 Given 12/05/1995 Varicella (Chicken Pox) Immunization 44724 Given 03/05/1995 MMR Virus Immunization 80811 Given 03/05/1995 IPV Inactive Poliovirus Vaccine 07162 Given 03/05/1995 DTP & Hib Immunization 57526 Given 06/14/1994 Hepatitis B Immunization, [place]-19 Years 38249 Given 06/14/1994 DTP & Hib Immunization 16909 Given 06/14/1994 IPV Inactive Poliovirus Vaccine 44168 Given 04/11/1994 DTP & Hib Immunization 65161 Given 04/11/1994 IPV Inactive Poliovirus Vaccine 11997 Given 02/14/1994 Hepatitis B Immunization, -19 Years 64105 Given 02/14/1994 DTP & Hib Immunization 58175 Given 02/14/1994 IPV Inactive Poliovirus Vaccine 29180 Given 1993 Hepatitis B Immunization, [place]-19 Years Vital Signs Date Vital Result Comment 09/03/2019 1:13pm BP Systolic 118 mmHg BP Diastolic 70 mmHg Heart Rate 88 /min Body Temperature 98.7 F Respiratory Rate 16 /min Height 61.25 inches 5'1.25" Weight 296.00 lb BMI (Body Mass Index) 55.5 kg/m2 08/27/2019 5:42pm BP Systolic 110 mmHg BP Diastolic 60 mmHg Heart Rate 76 /min Body Temperature 99.1 F Respiratory Rate 16 /min Height 61.25 inches 5'1.25" Weight 296.00 lb BMI (Body Mass Index) 55.5 kg/m2 Results Test Date Facility Test Result H/L Range Note Vaginitis Plus 08/28/2019 [facility] Trich vag by Negative Negative [address] [facility] [place] [address] (607)- - Chlamydia trachomatis, Herlinda Negative Negative Neisseria gonorrhoeae, Herlinda Negative Negative Atopobium vaginae Low - 0 Score Bvab 2 Low - 0 Score Megasphaera 1 Low - 0 Score 2 Abbey albicans, Herlinda Negative Negative Abbey glabrata, Herlinda Negative Negative 3 Ict Hemoccult (Fma) 08/21/2019 [facility] Ict Hemoccult (1) 08/08/19 Neg. (607)- - Ict Hemoccult-(2) 08/09/19 Neg. Ict-Hemoccult (3) 08/10/19 Neg. Lipid Profile 07/07/2019 [facility] Pat(a) Cholesterol 228 mg/dL High 120-200 Triglycerides 135 [...] 30-110 Alt (SGPT) 40 U/L High 7-35 4 Ast (Sgot) 25 U/L 5-34 Total Bilirubin 0.3 mg/dL 0.2-1.3 GFR Non- >60 ml/min/1.73m^ >=60 GFR >60 ml/min/1.73m^ >=60 CBC Electronic Fma 06/22/2019 [facility] Stewart(a) WBC 11.8 x10^3/UL High 4.0-10.0 RBC 4.99 x10^6/UL 3.93-6.00 HGB 13.7 g/dL 12.0-17.0 HCT 41 % 35-50 MCV 82.4 fL 80.0-95.0 MCH 27.5 pg 25.6-32.2 MCHC 33.3 g/dL 32.2-36.0 RDW-CV 14.2 % 11.6-14.4 PLT 361 x10^3/UL 163-400 MPV 9.1 fL Low 9.4-12.4 [facility]# 8.12 x10^3/UL High 1.56-6.13 Lymph# 2.91 x10^3/UL 1.18-3.74 [facility]# 0.59 x10^3/UL 0.24-0.82 Eos # 0.0 x10^3/UL 0.0-0.5 Baso # 0.03 x10^3/UL 0.01-0.08 [place]% 68.5 % 34.0-70.0 Lymph % 24.6 % 20.0-52.0 [facility]% 5.0 % 5.0-12.0 Eos% 0.3 % Low 0.7-7.0 Baso% 0.3 % 0.1-1.2 Laboratory test finding 06/22/2019 [facility] , Serum negative (607)- - Hemoglobin A1c (Fma) 5.7% % 4.1-5.7 Laboratory test 06/22/2019 [facility] Prolactin 16.0 ng/mL 4.8-23.3 5 finding [address] [place] [address] (607)- - FSH, Serum 06/22/2019 [facility] FSH 5.9 mIU/mL 6 [address] [place] [address] (607)- - Laboratory test 03/31/2019 [facility] Hemoglobin A1c 5.6 % 4.1-5.7 finding (607)- - (Fma) Comprehensive 03/31/2019 [facility](fma) Sodium 136 mEq/L 134-149 Metabolic Prof Potassium 4.1 mEq/L 3.6-5.5 Chloride 96 mEq/L 94-112 Carbon Dioxide 23 mEq/L 21-32 Glucose 182 mg/dL High 70-105 7 BUN 6 mg/dL 6-26 Creatinine 1.0 mg/dL [...] GFR >60 ml/min/1.73m^ >=60 CBC Electronic Fma 03/31/2019 [facility](fma) WBC 13.2 x10^3/UL High 4.0-10.0 RBC 5.27 x10^6/UL 3.93-6.00 HGB 14.2 g/dL 12.0-17.0 HCT 44 % 35-50 MCV 84.3 fL 80.0-95.0 MCH 26.9 pg 25.6-32.2 MCHC 32.0 g/dL Low 32.2-36.0 RDW-CV 13.7 % 11.6-14.4 PLT 438 x10^3/UL High 163-400 MPV 9.5 fL 9.4-12.4 [facility]# 8.37 x10^3/UL High 1.56-6.13 Lymph# 3.95 x10^3/UL High 1.18-3.74 [facility]# 0.52 x10^3/UL 0.24-0.82 Eos # 0.1 x10^3/UL 0.0-0.5 Baso # 0.03 x10^3/UL 0.01-0.08 [facility]% 63.7 % 34.0-70.0 Lymph % 30.0 % 20.0-52.0 [facility]% 4.0 % Low 5.0-12.0 Eos% 0.5 % Low 0.7-7.0 Baso% 0.2 % 0.1-1.2 1 1 orange aptima 2 Calculate total score by adding the 3 individual bacterial vaginosis (BV) marker scores together. Total score is interpreted as follows: Total score 0-1: Indicates the absence of BV. Total score 2: Indeterminate for BV. Additional clinical data should be evaluated to establish a diagnosis. Total score 3-6: Indicates the presence of BV. This test was developed and its performance characteristics determined by [facility]. It has not been cleared or approved by the Food and Drug Administration. The FDA has determined that such clearance or approval is not necessary. 3 This test was developed and its performance characteristics determined by [facility]. It has not been cleared or approved by the Food and Drug Administration. The FDA has determined that such clearance or approval is not necessary. 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 tension-type headache, not intractable Office Visit 08/08/2019 Main Office Sheri Meadows M79.672 Pain in left foot 10:30a RENATA Moon K64.9 Unspecified hemorrhoids Office Visit 06/22/2019 11:00a [facility] Office Philomena Lezama N91.2 Amenorrhea, GILLES Gonzalez unspecified K75.81 Nonalcoholic steatohepatitis (Lu) R11.11 Vomiting without nausea Office Visit 03/13/2019 1:00p Main Office Kathrin Silva L72.3 Sebaceous cyst EDI SPECIALIST Assessments Date Code Description Provider 09/03/2019 L29.2 Pruritus vulvae Opal Perry NP 09/03/2019 Z23 Encounter for immunization Opal Perry NP 08/27/2019 B37.3 Candidiasis of vulva and vagina Opal Perry NP 08/21/2019 K64.9 Unspecified hemorrhoids Sheri Moon NP 08/20/2019 G44.219 Episodic tension-type headache, not Jass [...] ASHLYN Pappas Plan of Treatment Future Appointment(s):09/10/2019 5:00 pm - GILLES Mccray at [id number] - Opal Perry NPL29.2 Pruritus vulvaeNew Medication:Fluconazole 150 mg - one tab by mouth once, may repeat in five daysClindamycin Phosphate 2 % - insert one applicatorful vaginally every night for 6 consectutive nightsComments:We will try to simultaneously treat for yeast and BV. If this doesn't help, we should consider alternate causes.Z23 Encounter for immunizationAllComments:1. Patient has been queried about patient's goals/ preferences and functional/lifestyle goals at relevant visits. If relevant, describe: Has been discussed, noted above2. Treatment goals as explainedto the patient: see above3. Are there barriers to meeting treatment goals? Yes If Yes, please describe: Barriers include possible insurance limits, disease process, and difficulty with lifestyle changes4. Self-Management goals as described to the patient: Yes, [...] sebaceous cyst-neck jw Scheduled 03/25/2019 [facility] [address] [place] [address] [address] [place] [address] [phone]
[2019-09-16 14:39] LABS: ABS Basophils 0.1 10^3/ul (0-0.2); ABS Eosinophils 0.2 10^3/ul (0-0.6); ABS Lymphocytes 4.1 10^3/ul (1.0-4.8); ABS Monocytes 0.7 10^3/ul (0-0.8); ABS Neutrophils 9.2 10^3/ul (1.5-7.7); ABS Nucleated RBC 0.1 10^3/ul; Eosinophil % 1.4 %; Hematocrit 42 % (35-47); Hemoglobin 13.7 g/dL (12.0-16.0); Lymphocyte % 28.5 %; Mean Corpuscular HGB Conc 33 g/dL (31-36); Mean Corpuscular Hemoglobin 26 pg (27-31); Mean Corpuscular Volume 79 fL (80-97); Mean Platelet Volume 7.1 fL (7.4-10.4); Nucleated Red Blood Cells % 0.5; Platelet Count 436 10^3/uL (150-450); Red Blood Count 5.29 10^6 /uL (3.70-4.87); Red Cell Distribution Width 15 % (10-15); White Blood Count 14.4 10^3/uL (3.5-10.8)
[2019-09-16 14:57] LABS: ALT 31 U/L (7-52); AST 23 U/L (13-39); Albumin/Globulin Ratio 1.1 (1-3); Alkaline Phosphatase 119 U/L (34-104); Anion Gap 5 mmol/L (2-11); Blood Urea Nitrogen 11 mg/dL (6-24); CO2 Carbon Dioxide 29 mmol/L (22-32); Calcium 9.5 mg/dL (8.6-10.3); Chloride 105 mmol/L (101-111); EGFR African American 73.2 (>60); EGFR Non-African American 60.5 (>60); Globulin 3.5 g/dL (2-4); Glucose 101 mg/dL (70-100); Potassium 4.3 mmol/L (3.5-5.0); Sodium 139 mmol/L (135-145); Total Protein 7.5 g/dL (6.4-8.9)
[2019-09-16 15:03] LABS: HCG Pregnancy < 0.60 mIU/mL
[2019-09-16] MEDS ORDERED: Albuterol/Ipratropium NEB.SOL* Albuterol 2.5 MG/Ipratropium 0.5 MG 3 ML INH ONE (15:11)
[2019-09-16] MEDS ORDERED: methylPREDNISolone 125 MG* 2 ML VIAL IV ONE ×2 (15:12→15:56)
--- NOTE | 2019-09-16 15:25 | ED ---
Asthma - HPI Summary HPI Summary: Pt is a 23 y/o F presenting to the ED with a chief complaint of an upper respiratory complaint starting on 09/12/19. Pt states she has asthma and called Dr. Mccormick office who couldnt see her so she came to ED. She reports cough, lack of appetite, nasal congestion, hoarse voice, wheezing in her throat, and some shortness of breath. She notes her inhaler has not been helping. She couldnt find her nebs at home. No recent admissions for asthma. - History of Current Complaint Chief Complaint: EDAsthma Stated Complaint: HAS COLD/TROUBLE BREATHING PER PT Time Seen by Provider: 09/16/19 15:11 Hx Obtained From: Patient Hx Last Menstrual Period: 07/05/14 Onset/Duration: Gradual Onset, Lasting Days, Still Present Timing: Days Initial Severity: Mild Current Severity: None Pain Intensity: 0 Pain Scale Used: 0-10 Numeric Location/Character: Wheezing Aggravating Symptoms: Nothing Alleviating Symptoms: Nothing Associated Signs and Symptoms: Positive: Shortness of Breath - Allergy/Home Medications Allergies/Adverse Reactions: Allergies Allergy/AdvReac Type Severity Reaction Status Date / Time metformin Allergy Severe Diarrhea Verified 02/20/19 13:51 Penicillins Allergy Severe Anaphylatic Verified 02/20/19 13:51 Shock coconut oil Allergy Intermediate Swelling Verified 02/20/19 13:51 Of Face,Lips,& Throat prochlorperazine Allergy Intermediate Swelling Verified 02/20/19 13:51 [From Compazine] Of Face,Lips,& Throat almond AdvReac Intermediate Swelling Verified 02/20/19 13:51 Of Face,Lips,& Throat latex AdvReac Intermediate Rash Verified 02/20/19 13:51 carlos flavor AdvReac Intermediate Hives Verified 02/20/19 13:51 Sulfa (Sulfonamide AdvReac Intermediate Rash Verified 02/20/19 13:51 Antibiotics) dextromethorphan AdvReac Unknown Verified 02/20/19 13:51 [From Mucinex DM] Reaction Details guaifenesin [From Mucinex DM] AdvReac Unknown Verified 02/20/19 13:51 Reaction Details PMH/Surg Hx/FS Hx/Imm Hx Previously Healthy: Yes Endocrine/Hematology History: Denies: Hx Anticoagulant Therapy, Hx Diabetes, Hx Thyroid Disease Comment Only: Other Endocrine/Hematological Disorders - hx of PCOS Cardiovascular History: Denies: Hx Hypertension, Hx Pacemaker/ICD Respiratory History: Reports: Hx Asthma, Hx Pneumonia Denies: Hx Chronic Obstructive Pulmonary Disease (COPD) GI History: Reports: Hx Gastroesophageal Reflux Disease Denies: Hx Ulcer History: Denies: Hx Renal Disease Musculoskeletal History: Denies: Hx Rheumatoid Arthritis, Hx Osteoporosis Sensory History: Reports: Hx Contacts or Glasses Denies: Hx Hearing Aid Opthamlomology History: Reports: Hx Contacts or Glasses Neurological History: Reports: Hx Migraine Psychiatric History: Reports: Hx Anxiety, Hx Attention Deficit Hyperactivity Disorder, Hx Depression, Hx Post Traumatic Stress Disorder, Hx Inpatient Treatment, Hx Bipolar Disorder, Hx Suicide Attempt Denies: Hx Eating Disorder, Hx Panic Disorder - Surgical History Surgery Procedure, Year, and Place: gall bladder removed at age 15 Infectious Disease History: No Infectious Disease History: Reports: Hx Shingles Denies: Hx Hepatitis, Hx Human Immunodeficiency Virus (HIV), Traveled Outside the [place] in Last 30 Days - Family History Known Family History: Positive: Respiratory Disease - Social History Alcohol Use: Rare Hx Substance Use: No Substance Use Type: Reports: Marijuana Substance Use Comment - Amount & Last Used: rarely Hx Tobacco Use: Yes Smoking Status (MU): Light Every Day Tobacco Smoker Type: Cigarettes - about 1/2 pack Have You Smoked in the Last Year: Yes Review of Systems Positive: Other - hoarse voice, dec. appetite Positive: Nasal Discharge, Other - congestion Positive: Shortness Of Breath, Cough, Other - wheezing All Other Systems Reviewed And Are Negative: Yes Physical Exam - Summary Physical Exam Summary: Constitutional: Well-developed, Well-nourished, Alert. (-) Distressed. Hoarse voice Skin: Warm, Dry HENT: Normocephalic; Atraumatic. Rhinorrhea Eyes: Conjunctiva normal Neck: Musculoskeletal ROM normal neck. (-) JVD, (-) Stridor, (-) Nuchal rigidity Cardio: Rhythm regular, rate normal, Heart sounds normal; Intact distal pulses; Radial pulses are 2+ and symmetric. (-) Murmur Pulmonary/Chest wall: Effort normal. (-) Respiratory distress, Expiratory wheezing bilaterally, (-) Rales Abd: Soft, (-) tenderness, (-) Distension, (-) Guarding, (-) Rebound Musculoskeletal: (-) Edema Lymph: (-) Cervical adenopathy Neuro: Alert, Oriented x3 Psych: Mood and affect Normal Triage Information Reviewed: Yes Vital Signs On Initial Exam: Initial Vitals Temp Pulse Resp BP Pulse Ox 98.1 F 113 18 138/100 94 09/16/19 13:10 09/16/19 13:10 09/16/19 13:10 09/16/19 13:10 09/16/19 13:10 Vital Signs Reviewed: Yes Procedures - Sedation Patient Received Moderate/Deep Sedation with Procedure: No Diagnostics - Vital Signs Vital Signs Temp Pulse Resp BP Pulse Ox 09/16/19 13:10 98.1 F 113 18 138/100 94 - Laboratory Lab Results: Lab Results 09/16/19 09/16/19 Range/Units 14:31 14:31 WBC 14.4 H (3.5-10.8) 10^3/uL RBC 5.29 H (3.70-4.87) 10^6 /uL Hgb 13.7 (12.0-16.0) g/dL Hct 42 (35-47) % MCV 79 L (80-97) fL MCH 26 L (27-31) pg MCHC 33 (31-36) g/dL RDW 15 (10-15) % Plt Count 436 (150-450) 10^3/uL MPV 7.1 L (7.4-10.4) fL Neut % (Auto) 64.2 % Lymph % (Auto) 28.5 % [place] % (Auto) 4.9 % Eos % (Auto) 1.4 % Baso % (Auto) 1.0 % Absolute Neuts (auto) 9.2 H (1.5-7.7) 10^3/ul Absolute Lymphs (auto) 4.1 (1.0-4.8) 10^3/ul Absolute Monos (auto) 0.7 (0-0.8) 10^3/ul Absolute Eos (auto) 0.2 (0-0.6) 10^3/ul Absolute Basos (auto) 0.1 (0-0.2) 10^3/ul Absolute Nucleated RBC 0.1 10^3/ul Nucleated RBC % 0.5 Sodium 139 (135-145) mmol/L Potassium 4.3 (3.5-5.0) mmol/L Chloride 105 (101-111) mmol/L Carbon Dioxide 29 (22-32) mmol/L Anion Gap 5 (2-11) mmol/L BUN 11 (6-24) mg/dL Creatinine 1.10 H (0.51-0.95) mg/dL Est GFR ( Amer) 73.2 (>60) Est GFR (Non-Af Amer) 60.5 (>60) BUN/Creatinine Ratio 10.0 (8-20) Glucose 101 H (70-100) mg/dL Calcium 9.5 (8.6-10.3) mg/dL Total Bilirubin 0.30 (0.2-1.0) mg/dL AST 23 (13-39) U/L ALT 31 (7-52) U/L Alkaline Phosphatase 119 H (34-104) U/L Total Protein 7.5 (6.4-8.9) g/dL Albumin 4.0 (3.2-5.2) g/dL Globulin 3.5 (2-4) g/dL Albumin/Globulin Ratio 1.1 (1-3) Beta HCG, Quant < 0.60 mIU/mL Result Diagrams: 09/16/19 14:31 09/16/19 14:31 Lab Statement: Any lab studies that have been ordered have been reviewed, and results considered in the medical decision making process. - Radiology CXR Radiology Interpretation Completed By: Radiologist Summary of Radiographic Findings: No active cardiopulmonary disease is noted. ED physician has reviewed this report. Re-Evaluation - Re-Evaluation Second Eval Re-Evaluation Time: 16:06 Change: Improved - Feeling better, 99% on RA. HR 90's to low 100's after albuterol. Ambulated Asthma Course/Dx - Course Course Of Treatment: 23 y/o F w hx asthma p/w URI symptoms. - labs notable for WBC 14. CXR neg. PE w mild expiratory wheezing, dry cough. Given duoneb, steroids. Will reassess. - Diagnoses Provider Diagnoses: Asthma exacerbation, URI (upper respiratory infection) Discharge ED - Sign-Out/Discharge Documenting (check all that apply): Patient Departure - Discharge Plan Condition: Stable Disposition: HOME Prescriptions: Albuterol/Ipratropium NEB.MATEO* [Duoneb (Albuterol 2.5 MG/Ipratropium 0.5 MG)] 1 neb INH Q4H 2 Days #8 neb.soln predniSONE TAB* [Deltasone TAB*] 50 mg PO DAILY 4 Days #4 tab Patient Education Materials: Asthma (ED) Referrals: Jass Pedroza MD [Primary Care Provider] - Additional Instructions: You were seen in the emergency department for asthma. Your chest x-ray did not show any evidence of pneumonia. If any studies were not completed at the time of discharge you will be called with the relevant results. Please follow up with your primary care doctor in next 2-3 days and return to emergency department for worsening trouble breathing, fevers, or concerning symptoms. It was a pleasure taking care of you today. - Billing Disposition and Condition Condition: STABLE Disposition: Home - Attestation Statements Document Initiated by Urbanoibantonio: Yes Documenting Scribe: Ya Singh Provider For Whom Stu is Documenting (Include Credential): Paul De Souza MD. Scribe Attestation: Ya Hood, scribed for Paul D eSouza MD. on 09/16/19 at 1659. Scribe Documentation Reviewed: Yes Provider Attestation: The documentation as recorded by the scribe, Ya Singh accurately reflects the service I personally performed and the decisions made by , Paul De Souza MD. Status of Scribe Document: Viewed
[2019-09-16] MEDS ORDERED: Oxymetazoline 0.05% NASAL SPR* 15 ML BTL BOTH NARES ONE (15:47)
[2019-09-16] MEDS ORDERED: predniSONE TAB* 50 MG PO ONE (15:47)
[2019-09-16 16:35] VITALS: BP 157/116
== END 2019-09-16 16:30 | disposition home or self-care (01) ==
LOC: ED 13:07
DX: J06.9 Acute upper respiratory infection, unspecified (principal); J45.901 Unspecified asthma with (acute) exacerbation; K21.9 Gastro-esophageal reflux disease without esophagitis; F41.9 Anxiety disorder, unspecified; F32.9 Major depressive disorder, single episode, unspecified; F17.210 Nicotine dependence, cigarettes, uncomplicated; Z90.49 Acquired absence of other specified parts of digestive tract; Z88.0 Allergy status to penicillin; Z88.2 Allergy status to sulfonamides; Z88.8 Allergy status to other drugs, medicaments and biological substances; Z91.040 Latex allergy status
CPT/HCPCS: 36415; 71046; 80053; 84702; 85025; 96374; 99282; A9270-GY; J2930; J7512

== ENCOUNTER 2020-01-03 13:21 | Emergency (ER) | payer MEDICARE, MEDICAID ==
--- OUTSIDE RECORDS SUMMARY | 2020-01-03 13:28 | XMS REPORT | Continuity of Care Document ---
:1995 External Reference #:[id number] Author Name GILLES Mccray Address [address] [place] [address] Care Team Providers Name Role Phone [facility] - Care Team Information Corrugator Operator [phone] Gastroenterology senior controls analyst - Obstetrics & Gynecology Care Team Information Corrugator Operator Maurisio Barry MD - Neurology Care Team Information Corrugator Operator [phone] Nisreen Santillan MD - Neurology Care Team Information Corrugator Operator [phone] [facility] - Interventional Pain Care Team Information Corrugator Operator [phone] Medicine Marvin Jorgensen - Endocrinology, Diabetes & Care Team Information Corrugator Operator [phone] Metabolism Edward Carmichael MD - Orthopaedic Care Team Information Corrugator Operator Surgery Danyel Sutton MD - Care Team Information Corrugator Operator [phone] Gastroenterology Vashti Allison - Gynecology Care Team Information Corrugator Operator [phone] Sary Hudson - Mental Health Care Team Information Corrugator Operator Unavailable Problems Active Problems Provider Date Posttraumatic [...] Use Start: Unknown Patient is a current under 1/2 ppd, smoker, smokes some days working on cutting back Smoking Status Reviewed: 12/17/19 Patient is a current under 1/2 ppd, smoker, smokes some days working on cutting back Allergies, Adverse Reactions, Alerts Active Allergies Reaction Severity Comments Date Sulfa Drugs 04/02/2005 Compazine 06/15/2008 Coconut 10/04/2009 carlos rash 08/09/2010 Latex rash 06/26/2011 Mucinex throat swelling per 03/18/2013 pt Gepp Suzan rash 09/15/2015 Milk-related Compounds Nausea and Vomiting 02/21/2017 Penicillin mouth and lip 07/04/2017 swelling Medications Active Medications SIG Qnty Indications Ordering Date Provider Jenifer 28 take 1 tablet 28tabs Z79.3 Jass Pedroza, 12/17/2019 3-0.03mg daily. M.D. Tablets Azithromycin 1 by mouth every 7tabs H66.92 Elizabeth Ricardo, 10/30/2019 500mg day x 7d COMBAT SYSTEMS OPERATOR Tablets Meclizine HCL take1- 2 tablets 30tabs H66.92 Elizabeth Ricardo, 10/30/2019 25mg by mouth q hs COMBAT SYSTEMS OPERATOR Tablets Yessi-D 24 Hour 1 by mouth every 30tabs H66.92 Elizabeth Ricardo, 10/30/2019 Allergy & Congestion day COMBAT SYSTEMS OPERATOR 180-240mg Tablets ER 24HR Tizanidine HCL 1 by mouth three 60caps M25.559 Jass Pedroza, 07/24/2018 4mg times a day as M.D. Capsules needed for muscle spasms Ipratropium use bid- three 90ml Jass Pedroza, 11/29/2016 [place]/Albuterol times a day in M.D. Sulfate nebulizer as needed 0.5-2.5(3)mg/3ML Solution Albuterol Sulfate use three times a 1box J45.909 Kathrin 03/02/2015 day if needed Ricardo, COMBAT SYSTEMS OPERATOR (2.5mg/3ML) 0.083% Nebulizer Benadryl one by mouth katina Vargas M.D. 01/11/2015 25mg Tablets times a day as needed for hives. Pt can take at [facility] Proventil HFA 2 puffs every 6 1units J45.998 Jass Pedroza, 02/04/2014 hours as needed M.D. 108(90Base) mcg/Act Aerosol Montelukast Sodium take one tablet 90tabs J30.9 Kathrin 12/04/2012 10mg by mouth at [facility] Tablets bedtime Xanax 1 twice a day as Unknown 02/22/2012 0.5mg Tablets needed Chantix Starting take as directed Unknown Month Tl 0.5mg X 11 & 1 mg X 42 Tablets Cinnamon Plus 1 po qd Unknown Chromium Latuda 1 tab by mouth qd Unknown 40mg Tablets Fiber Adult Gummies 1 po qd Unknown Bupropion 1 by mouth every Unknown Hydrochloride ER (XL) day 300mg Tablets ER 24HR Dexilant 1 po qd Unknown 30mg Capsules DR Magnesium 1 by mouth every Unknown 400mg Tablets day Cetirizine HCL 1 by mouth every 30tabs Jass Pedroza, 10mg day M.D. Tablets Ibuprofen 2-3 by mouth 120tabs Jass Pedroza, 200mg Tablets every 6 hours as M.D. needed pain History Medications Fluconazole one tab by mouth 2tabs B37.3 Elizabeth Ricardo, 10/01/2019 - 150mg once, may repeat in [facility] 12/17/2019 Tablets five days Miconazole 3 Apply fingertip sized 25gm B37.3 Opal Doe 10/01/2019 - 4% amount to affected RENATA Perry 12/17/2019 Cream area of vulva for up to 7 days as needed Fluconazole one tab by mouth 2tabs L29.2 Opal CJose 09/03/2019 - 150mg once, may repeat in RENATA Perry 09/10/2019 Tablets five days Clindamycin insert one 80gm L29.2 Opal Doe 09/03/2019 - Phosphate applicatorful RENATA Perry 09/10/2019 2% Cream vaginally every night for 6 consectutive nights Terconazole insert one vaginally 3units B37.3 Opal Lezama. 08/27/2019 - 80mg at bedtime daily for [place] 09/03/2019 Suppository 3 days Medications Administered in Office Medication SIG Qnty Indications Ordering Provider Date Injection Medroxyprogesterone Jass Pedroza M.D. 10/14/2013 Acetate 1 ML (Depo-Provera) Injection Injection Subcutaneous Or Jass Pedroza M.D. 10/14/2013 Intramuscular Injection Injection Medroxyprogesterone Jass Pedroza M.D. 07/16/2013 Acetate 1 ML (Depo-Provera) Injection Injection Subcutaneous Or Jass Pedroza M.D. 07/16/2013 Intramuscular Injection Injection Subcutaneous Or Jass Pedroza M.D. 04/09/2013 Intramuscular Injection Immunizations CPT Code Status Date Vaccine Lot # [id number] Given 09/03/2019 Influenza Vac, Quadrivalent, Slit Virus, Im [id number] 32785 Given 09/20/2018 Influenza Virus Vaccine, Recombinant Dna, [id number] [place] [address] Given 10/03/2014 DO Not Use Split Influenza Virus Vaccine 11380 Given 10/04/2009 Varicella (Chicken Pox) Immunization [id number] 90721 Given 09/23/2006 Tdap Tetanus, W Pertussis [id number] 51115 Given 11/29/1998 IPV Inactive Poliovirus Vaccine 13633 Given 11/29/1998 DTaP Immunization 36294 Given 11/19/1998 MMR Virus Immunization 26416 Given 12/05/1995 Varicella (Chicken Pox) Immunization 24408 Given 03/05/1995 MMR Virus Immunization 92211 Given 03/05/1995 IPV Inactive Poliovirus Vaccine 93021 Given 03/05/1995 DTP & Hib Immunization 79178 Given 06/14/1994 Hepatitis B Immunization, [place]-19 Years 21189 Given 06/14/1994 DTP & Hib Immunization 21555 Given 06/14/1994 IPV Inactive Poliovirus Vaccine 43396 Given 04/11/1994 DTP & Hib Immunization 92112 Given 04/11/1994 IPV Inactive Poliovirus Vaccine 02518 Given 02/14/1994 Hepatitis B Immunization, -19 Years 89148 Given 02/14/1994 DTP & Hib Immunization 84922 Given 02/14/1994 IPV Inactive Poliovirus Vaccine 03647 Given 1993 Hepatitis B Immunization, -19 Years Vital Signs Date Vital Result Comment 12/17/2019 5:02pm BP Systolic 110 mmHg BP Diastolic 70 mmHg Heart Rate 84 /min Body Temperature 99.8 F Respiratory Rate 16 /min Height 61.25 inches 5'1.25" Weight 288.00 lb BMI (Body Mass Index) 54.0 kg/m2 10/30/2019 4:15pm BP Systolic 102 mmHg BP Diastolic 74 mmHg Heart Rate 76 /min Body Temperature 97.9 F Respiratory Rate 18 /min Height 61.25 inches 5'1.25" Weight 293.00 lb BMI (Body Mass Index) 54.9 kg/m2 Results Test Acquired Date Facility Test Result H/L Range Note Laboratory test 10/30/2019 [facility] Cyclic <15.6 U 1 finding Citrullinated Pep Igg Laboratory test 10/30/2019 [facility]) TSH 1.32 mIU/L 0.50-6.00 finding Free T4 0.97 ng/dL 0.75-1.54 Laboratory test 10/01/2019 [facility] Hemoglobin A1c 5.3 % 4.1-5.7 finding (607)- - (Fma) CBC Auto Diff 09/16/2019 [facility] White Blood Count 14.4 High 3.5-10.8 10^3/uL Red Blood Count 5.29 10^6/uL High 3.70-4.87 Hemoglobin 13.7 g/dL Normal 12.0-16.0 Hematocrit 42 % Normal 35-47 Mean Corpuscular Volume 79 fL Low 80-97 Mean Corpuscular Hemoglobin 26 pg Low 27-31 Mean Corpuscular HGB Conc 33 g/dL Normal 31-36 Red Cell Distribution Width 15 % Normal 10-15 Platelet Count 436 10^3/uL Normal 150-450 Mean Platelet Volume 7.1 fL Low 7.4-10.4 Abs Neutrophils 9.2 10^3/uL High 1.5-7.7 Abs Lymphocytes 4.1 10^3/uL Normal 1.0-4.8 Abs Monocytes 0.7 10^3/uL Normal 0-0.8 Abs Eosinophils 0.2 10^3/uL Normal 0-0.6 Abs Basophils 0.1 10^3/uL Normal 0-0.2 Abs Nucleated RBC 0.1 10^3/uL Granulocyte % 64.2 % Lymphocyte % 28.5 % Monocyte % 4.9 % Eosinophil % 1.4 % Basophil % 1.0 % Nucleated Red Blood Cells % 0.5 Comp Metabolic Panel 09/16/2019 [facility] Sodium 139 mmol/L Normal 135-145 Potassium 4.3 mmol/L Normal 3.5-5.0 Chloride 105 mmol/L Normal 101-111 Co2 Carbon Dioxide 29 mmol/L Normal 22-32 Anion Gap 5 mmol/L Normal 2-11 Glucose 101 mg/dL High 70-100 Blood Urea Nitrogen 11 mg/dL Normal 6-24 Creatinine 1.10 mg/dL High 0.51-0.95 BUN/Creatinine Ratio 10.0 Normal 8-20 Calcium 9.5 mg/dL Normal 8.6-10.3 Total Protein 7.5 g/dL Normal 6.4-8.9 Albumin 4.0 g/dL Normal 3.2-5.2 Globulin 3.5 g/dL Normal 2-4 Albumin/Globulin Ratio 1.1 Normal 1-3 Total Bilirubin 0.30 mg/dL Normal 0.2-1.0 Alkaline Phosphatase 119 U/L High 34-104 Alt 31 U/L Normal 7-52 Ast 23 U/L Normal 13-39 Egfr Non- 60.5 >60 Egfr 73.2 >60 2 Laboratory test finding 09/16/2019 [facility] HCG < 0.60 mIU/mL 3 Connective Tissue Panel 09/10/2019 [facility] Anti-Nuclear Antibody 0.4 U 4 Cyclic Citrullinated Peptide <15.6 U 5 Interpretation See Comment 6 Ssa/SSB Abs Igg 09/10/2019 [facility] SS-A/Ro Antibody <0.2 U 7 SS-B/La Antibody 4.7 U Abnormal 8 U1 HOST/HOSTESS RESTAURANT/SNRNP Igg 09/10/2019 [facility] U1 HOST/HOSTESS RESTAURANT IgG 0.3 U 9 Autoabs Autoabs Yana Panel--LD ([facility] 09/10/2019 [facility] Rheumatoid 24 IU/mL High <15 10 Factor Laboratory test 09/10/2019 [facility](fma) Bilirubin, 0.1 mg/dL 0.0- 0. finding Direct 6 Comprehensive 09/10/2019 [facility]) Sodium 138 mEq/L 134-14 Metabolic Prof 9 Potassium 4.1 mEq/L 3.6-5.5 Chloride 104 mEq/L 94-112 Carbon Dioxide 30 mEq/L 21-32 Glucose 85 mg/dL 70-105 BUN 9 mg/dL 6-26 Creatinine 1.0 mg/dL 0.6-1.4 BUN/Creat Ratio 9.0 CALC 8.0-36.0 Calcium 9.5 mg/dL 8.6-10.2 Total Protein 7.3 g/dL 6.4-8.3 Albumin 4.6 g/dL 3.8-5.5 Globulin 2.7 g/dL 2.0-4.8 A/G Ratio 1.7 CALC 0.6-2.3 Alk. Phosphatase 123 U/L High 30-110 Alt (SGPT) 42 U/L High 7-35 Ast (Sgot) 34 U/L 5-34 Total Bilirubin 0.3 mg/dL 0.2-1.3 GFR Non- >60 ml/min/1.73m^ >=60 GFR >60 ml/min/1.73m^ >=60 Laboratory test 09/03/2019 [facility] Prolactin 18.6 ng/mL Normal 1.0-25.0 11 finding Vaginitis Plus 08/28/2019 [facility] Trich vag by Negative Negative 12 [address] [facility] [place] [address] (607)- - Chlamydia trachomatis, Herlinda Negative Negative Neisseria gonorrhoeae, Herlinda Negative Negative Atopobium vaginae Low - 0 Score Bvab 2 Low - 0 Score Megasphaera 1 Low - 0 Score 13 Abbey albicans, Herlinda Negative Negative Abbey glabrata, Herlinda Negative Negative 14 Ict Hemoccult (Fma) 08/21/2019 [facility] Ict Hemoccult (1) 08/08/19 Neg. (607)- - Ict Hemoccult-(2) 08/09/19 Neg. Ict-Hemoccult (3) 08/10/19 Neg. Lipid Profile 07/07/2019 [facility]) Cholesterol 228 mg/dL High 120-200 Triglycerides 135 mg/dL 30-200 HDL Cholesterol 37 mg/dL 30-85 LDL (Calculated) 164 CALC High 0-129 VLDL Cholesterol 27 mg/dL 0-50 HDL Risk Factor 6.2 CALC High 0.0-4.4 Laboratory test 06/22/2019 [facility]) Free T4 0.82 ng/dL 0.75- 1.54 finding TSH 1.60 mIU/L 0.50-6.00 Comprehensive Metabolic 06/22/2019 [facility]) Sodium 139 mEq/L 134-149 Prof Potassium 4.3 [...] 30-110 Alt (SGPT) 40 U/L High 7-35 15 Ast (Sgot) 25 U/L 5-34 Total Bilirubin 0.3 mg/dL 0.2-1.3 GFR Non- >60 ml/min/1.73m^ >=60 GFR >60 ml/min/1.73m^ >=60 CBC Electronic a 06/22/2019 Joshua Stewart([facility]) WBC 11.8 x10^3/UL High 4.0-10.0 RBC 4.99 x10^6/UL 3.93-6.00 HGB 13.7 g/dL 12.0-17.0 HCT 41 % 35-50 MCV 82.4 fL 80.0-95.0 MCH 27.5 pg 25.6-32.2 MCHC 33.3 g/dL 32.2-36.0 RDW-CV 14.2 % 11.6-14.4 PLT 361 x10^3/UL 163-400 MPV 9.1 fL Low 9.4-12.4 Carmelina# 8.12 x10^3/UL High 1.56-6.13 Lymph# 2.91 x10^3/UL 1.18-3.74 [place]# 0.59 x10^3/UL 0.24-0.82 Eos # 0.0 x10^3/UL 0.0-0.5 Baso # 0.03 x10^3/UL 0.01-0.08 Carmelina% 68.5 % 34.0-70.0 Lymph % 24.6 % 20.0-52.0 [place]% 5.0 % 5.0-12.0 Eos% 0.3 % Low 0.7-7.0 Baso% 0.3 % 0.1-1.2 Laboratory test finding 06/22/2019 [facility] , Serum negative (607)- - Hemoglobin A1c (Fma) 5.7% % 4.1-5.7 Laboratory test 06/22/2019 [facility] Prolactin 16.0 ng/mL 4.8-23.3 16 finding [address] [place] [address] (607)- - FSH, Serum 06/22/2019 [facility] FSH 5.9 mIU/mL 17 [address] [place] [address] (607)- - 1 REFERENCE VALUE <20.0 (Negative) Test Performed by: [facility] [address] [place] [address] English Instructor: Winston Berg M.D. Ph.D.; CLIA# [id number] 2 Because ethnic data is not always readily available, this report includes an eGFR for both -Americans and non- Americans. The National Kidney Disease Education Program (NKDEP) does not endorse the use of the MDRD equation for patients that are not between the ages of 18 and 70, are , have extremes of body size, muscle mass, or nutritional status, or are non- or non-. According to the National Kidney Foundation, irrespective of diagnosis, the stage of the disease is based on the level of kidney function: Stage Description GFR(mL/min/1.73 m(2)) 1 Kidney damage with normal or decreased GFR 90 2 Kidney damage with mild decrease in GFR 60-89 3 Moderate decrease in GFR 30-59 4 Severe decrease in GFR 15-29 5 Kidney failure <15 (or dialysis) 3 <5.0 Negative 5.0 - 25.0 Indeterminate (Repeat testing recommended after 72 hours) >25.0 Positive Perimenopausal women can display HCG levels of up to 20 mIU/mL 4 REFERENCE VALUE <=1.0 (Negative) 5 REFERENCE VALUE <20.0 (Negative) 6 Tests for antibodies to dsDNA and GEORGE antigens are not performed automatically unless the YANA result is > or = 3.0 U. Studies performed at [facility] indicate that positive YANA results <3.0 U are rarely accompanied by positive second order tests. Test Performed by: [facility] [place] [facility] [place] [facility] [place] [address] English Instructor: Winston Berg M.D. Ph.D.; CLIA# [id number] 7 REFERENCE VALUE <1.0 (Negative) 8 Interpretation: Positive (>=1.0) REFERENCE VALUE <1.0 (Negative) Test Performed by: [facility] [place] [facility] [place] [facility] [place] [address] English Instructor: Winston Berg M.D. Ph.D.; CLIA# [id number] 9 REFERENCE VALUE <1.0 (Negative) Test Performed by: [facility] [place] [facility] [place] [facility] [place] [address] English Instructor: Winston Berg M.D. Ph.D.; [facility]# [id number] 10 [id number] 2 Gold Top SSTs 11 1 serum pour off from red top tube refrigerated [id number] 12 1 orange aptima 13 Calculate total score by adding the 3 individual bacterial vaginosis (BV) marker scores together. Total score is interpreted as follows: Total score 0-1: Indicates the absence of BV. Total score 2: Indeterminate for BV. Additional clinical data should be evaluated to establish a diagnosis. Total score 3-6: Indicates the presence of BV. This test was developed and its performance characteristics determined by [facility]. It has not been cleared or approved by the Food and Drug Administration. The FDA has determined that such clearance or approval is not necessary. 14 This test was developed and its performance characteristics determined by [facility]. It has not been cleared or approved by the Food and Drug Administration. The FDA has determined that such clearance or approval is not necessary. 15 consistent w/ previous results 16 1 serum pour off 17 Adult Female: Follicular phase 3.5 - 12.5 Ovulation phase 4.7 - 21.5 Luteal phase 1.7 - 7.7 Postmenopausal 25.8 - 134.8 Procedures Date Code Description Status 10/01/2019 58890 Finger Or Heel Stick Completed 09/21/2019 26913 Pulse Oximetry Completed Medical Devices Description No Information Available Encounters Type Date Location Provider Dx Diagnosis Office Visit 10/30/2019 Main Office ASHLYN Perez H66.92 Otitis media, 3:45p unspecified, left ear R76.0 Raised antibody titer Office Visit 10/01/2019 6:30p Main Office Opal Doe B37.3 Candidiasis of [place], AUTOMATION ANALYST vulva and vagina E28.2 Polycystic ovarian syndrome R73.09 Other abnormal glucose Office Visit 09/21/2019 6:45p Main Office Sheri Meadows J06.9 Acute upper Moon, AUTOMATION ANALYST respiratory infection, unspecified F17.210 Nicotine dependence, cigarettes, uncomplicated Z72.0 Tobacco use Office Visit 09/10/2019 5:00p Main Office GILLES Mccray R94.5 Abnormal results of liver function studies E28.2 Polycystic ovarian syndrome M79.672 Pain in left foot M79.671 Pain in right foot R19.7 Diarrhea, unspecified Office Visit 09/03/2019 1:30p Main Office Opal Perry, L29.2 Pruritus vulvae AUTOMATION ANALYST Z23 Encounter for immunization F33.9 Major depressive disorder, recurrent, unspecified Office Visit 08/27/2019 6:15p Main Office Opal Doe B37.3 Candidiasis of RENATA Perry vulva and vagina Office Visit 08/20/2019 2:40p Main Office Jass AJose Kasia, G44.219 Episodic M.D. tension-type headache, not intractable Office Visit 08/08/2019 10:30a Main Office Sheri Meadows M79.672 Pain in left foot RENATA Moon K64.9 Unspecified hemorrhoids Office Visit 06/22/2019 11:00a [facility] Philomena Lezama N91.2 Amenorrhea, GILLES Gonzalez unspecified K75.81 Nonalcoholic steatohepatitis (Lu) R11.11 Vomiting without nausea Assessments Date Code Description Provider 12/17/2019 R94.5 Abnormal results of liver function studies GILLES Mccray 12/17/2019 Z79.3 halfway (current) use of hormonal GILLES Mccray contraceptives 12/17/2019 R42 Dizziness and giddiness GILLES Mccray 12/17/2019 F17.210 Nicotine dependence, cigarettes, GILLES Mccray uncomplicated 12/17/2019 R06.2 Wheezing GILLES Mccray 10/30/2019 H66.92 Otitis media, unspecified, left ear Elizabeth Ricardo, [facility] 10/30/2019 R76.0 Raised antibody titer Elizabeth Ricardo, [facility] 10/01/2019 B37.3 Candidiasis of vulva and vagina Opal Peryr NP 10/01/2019 E28.2 Polycystic ovarian syndrome Opal Perry NP 10/01/2019 R73.09 Other abnormal glucose Opal Perry NP 09/21/2019 J06.9 Acute upper respiratory infection, Sheri Moon NP unspecified 09/21/2019 F17.210 Nicotine dependence, cigarettes, Sheri Moon NP uncomplicated 09/21/2019 Z72.0 Tobacco use Sheri Moon NP 09/10/2019 R94.5 Abnormal results of liver function studies GILLES Mccray 09/10/2019 E28.2 Polycystic ovarian syndrome GILLES Mccray 09/10/2019 M79.672 Pain in left foot GILLES Mccray 09/10/2019 M79.671 Pain in right foot GILLES Mccray 09/10/2019 R19.7 Diarrhea, unspecified GILLES Mccray 09/03/2019 L29.2 Pruritus vulvae Opal Perry, RENATA 09/03/2019 Z23 Encounter for immunization Opal Perry, RENATA 09/03/2019 F33.9 Major depressive disorder, recurrent, Opal Perry, AUTOMATION ANALYST unspecified 08/27/2019 B37.3 Candidiasis of vulva and [...] 06/22/2019 R11.11 Vomiting without nausea GILLES Mccray Plan of Treatment Future Appointment(s):03/17/2020 5:00 pm - GILLES Mccray at Main Yrseaa4201/2020 1:30 pm - GILLES Mccray at Main Rrhzea5912/17/2019 - Philomena Gonzalez PAR94.5 Abnormal results of liver function studiesNew Labs:Liver Profile, Ordered: 12/17/19Comp Metabolic-ALL Lab Compani, Ordered: 12/17/19CBC Electronic (Fma New), Ordered: 12/17/19Comments:Check liver rxxobwhM42.3 halfway (current) use of hormonal contraceptivesNew Medication:Jenifer 28 3-0.03 mg - take 1 tablet daily.Comments:Restart Aditi Call with any concerns or side [id number] Dizziness and giddinessComments:Continue meclizine as neededGet up slowly from seated and laying, take your time Lots of water, lesssoda, ice tea ( these can be dehydrating to the body) See Test Skein Winder - you will be receiving a phone call ER for any acute chest, trouble breathing.F17.210 Nicotine dependence, cigarettes, uncomplicatedComments:You can do it! Let me know if you need anything.R06.2 WheezingComments:Use your inhaler EVERY night before bed for the next few weeksAllComments:PCMHMedication Management Patient Understands medications he's taking? Yes [...] to Reason for Referral Status Appt Date Willy Feliz MD joint pains, positive RF factor jw Scheduled [address], [place] [address] [phone]
--- OUTSIDE RECORDS SUMMARY | 2020-01-03 13:28 | XMS REPORT ---
:1995 Author Organization [facility] Care Team Providers Name Role Phone ANA BAUMANN Primary Care Physician Unavailable Allergies, Adverse Reactions, Alerts Allergy Code CodeSystem Reaction Severity Criticality Status Start Substance Date Moderate Medications Medication Medication Medication Start Stop Route Dose Status Fill Code CodeSystem Date Date Instructions alprazolam 594566 RxNorm 2018-12- oral 0.5 mg completed for 5-08 tablet day(s) bupropion 506608 RxNorm 2019-03 oral 150 mg active 2 tablet HCl -08 0-17 2 once a day tablet for 30 day(s) sustain ed-rele ase 12 hr once a day alprazolam 346229 RxNorm 2019-05-0 oral 0.5 mg active 1 tablet -19 8-18 1 twice a day tablet as needed for twice a 30 day(s) day alprazolam 754194 RxNorm 2019-03-0 oral 0.5 mg completed 1 tablet -08 6-07 1 twice a day tablet as needed for twice a 30 day(s) day Latuda 5674965 RxNorm 2019-03 oral 60 mg 1 active 1 tablet -08 0-17 tablet once a day once a for 30 day(s) day Latuda 0802820 RxNorm 2018-12 oral 60 mg completed for 5-08 tablet day(s) bupropion 865552 RxNorm 2018-120 oral 200 mg completed for 30 HCl -27 5-08 tablet day(s) sustain ed-rele ase 12 hr Problems Problem Name Code CodeSystem Alternate Alternate Start End Status Narrative Code CodeSystem Date Date 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, 3- unspecified Hyperkinetic 67072189 SNOMED-CT 2019-0 Active disorder, 3- unspecified Hyperkinetic 21442478 SNOMED-CT 2019-0 Active disorder, 3- unspecified Relevant diagnostic tests/laboratory data Narrative No Information Procedures Procedure Code CodeSystem Target Date of Status Service Device Device Device Name Site Procedure Delivery Code Name UID Location Psychotherap [id number] SNOMED-CT () 2019-04-30 complete Mental y, 45 04 d Health- minutes with [place] patient [address], [id number] Psychotherap [id number] SNOMED-CT () 2019-05-07 complete Mental y, 45 04 d Health- minutes with [place] patient [address], [id number] [id number] Psychotherap [id number] SNOMED-CT () 2019-06-18 complete Mental y, 45 04 d Health- minutes with [place] patient [address], [id number] [id number] SNOMED-CT () 2019-07-09 complete Mental d Health- [address], [id number] [id number] Psychotherap [id number] SNOMED-CT () 2019-07-23 complete Mental y, 45 04 d Health- minutes with [place] patient [address], [id number] [id number] Psychotherap [id number] SNOMED-CT () 2019-08-20 complete Mental y, 45 04 d Health- minutes with [place] patient [address], [id number] [id number] Office or [id number] SNOMED-CT () 2019-08-28 complete Mental other 6 d Health- outpatient [place] visit for [address], of [place], established [id number] patient, [phone] which requires at least 2 of these 3 river components: A problem focused history; A problem focused examination; Straightforw faustino medical decision making. Counselin Psychotherap [id number] SNOMED-CT () 2019-02-26 complete Mental y, 45 04 d Health- minutes with [place] patient [address], [id number] Psychotherap [id number] SNOMED-CT () 2019-03-05 complete Mental y, 45 04 d Health- minutes with [place] patient [address], [id number] [id number] SNOMED-CT () 2019-03-19 complete Mental d Health- [address], [id number] Office or [id number] SNOMED-CT () 2019-03-25 complete Mental other 7 d Health- outpatient [place] visit for [address], [facility], established [id number] patient, [id number] which requires at least 2 of these 3 river components: An expanded problem focused history; An expanded problem focused examination; Medical decision making of [facility] Psychotherap [id number] SNOMED-CT () 2019-05-14 complete Mental y, 45 04 d Health- minutes with [place] patient [address], [id number] [id number] Psychotherap [id number] SNOMED-CT () 2019-06-04 complete Mental y, 45 04 d Health- minutes with [place] patient [address], [id number] [id number] Psychotherap [id number] SNOMED-CT () 2019-06-11 complete Mental y, 45 04 d Health- minutes with [place] patient [address], [id number] [id number] Psychotherap [id number] SNOMED-CT () 2019-07-30 complete Mental y, 45 04 d Health- minutes with [place] patient [address], [id number] [id number] Psychotherap [id number] SNOMED-CT () 2019-11-19 complete Mental y, 45 04 d Health- minutes with [place] patient [address], [id number] [id number] Office or [id number] SNOMED-CT () 2019-12-01 complete Mental other 6 d Health- outpatient [place] visit for [address], [facility], established [id number] patient, [id number] which requires at least 2 of these 3 river components: A problem focused history; A problem focused examination; Straightforw faustino medical decision making. Counselin SNOMED-CT () 2019-10-08 complete Mental d Health- [address], [id number] [phone] SNOMED-CT () 2019-03-12 complete Mental d Health- [address], [id number] [id number] Psychotherap [id number] SNOMED-CT () 2019-03-26 complete Mental y, 45 04 d Health- minutes with [place] patient [address], [id number] Psychotherap [id number] SNOMED-CT () 2019-04-02 complete Mental y, 45 04 d Health- minutes with [place] patient [address], [id number] [id number] Psychotherap [id number] SNOMED-CT () 2019-04-09 complete Mental y, 45 04 d Health- minutes with [place] patient [address], [id number] [id number] Office or [id number] SNOMED-CT () 2019-06-05 complete Mental other 6 d Health- outpatient [place] visit for [address], of [place], established [id number] patient, [id number] which requires at least 2 of these 3 river components: A problem focused history; A problem focused examination; Straightforw faustino medical decision making. Counselin Psychotherap [id number] SNOMED-CT () 2019-05-28 complete Mental y, 45 04 d Health- minutes with [place] patient [address], [id number] [id number] SNOMED-CT () 2019-08-06 complete Mental d Health- [address], [id number] [id number] Psychotherap [id number] SNOMED-CT () 2019-09-10 complete Mental y, 45 04 d Health- minutes with [place] patient [address], [id number] [id number] Encounters/Encounter Diagnoses Encounter Name Encounter Diagnosis Diagnosis Name Diagnosis Date of Service Code Code CodeSystem Diagnosis Delivery Location [facility] [id number] Hyperkinetic SNOMED-CT 2019-12-17 Behavioral Individual 30 disorder, Health min unspecified Clinic , , , Vital Signs No Information Social History Element Description Description Start End Code CodeSystem AdditionalInfo Date Date SexAssignedAtBirth Female F AdministrativeGender 12-14 Hospital Discharge Instructions Reason For Referral Medical Equipment FDA Assessments
--- OUTSIDE RECORDS SUMMARY | 2020-01-03 13:28 | XMS REPORT | Continuity of Care Document ---
:1995 External Reference #:[id number] Author Name Bianca Chambers Care Team Providers Name Role Phone Jass Pedroza MD - Family Care Team Information Community Health Counselor [phone] Medicine Problems Active Problems Provider Date Dyssomnia Jeanine Malik DNP, RN, TEACHING YOUNG- Onset: 06/20/2015 Disturbance in sleep behavior Jeanine Malik DNP, RN, TEACHING YOUNG-BC Onset: 2014 Note: Irregular sleep pattern Vomiting Bhavna Alonzo NP Onset: 02/10/2019 Gastro-esophageal reflux disease with Bhavna Alonzo NP Onset: 02/10 esophagitis Morbid obesity Bhavna Alonzo NP Onset: 02/10/2019 Peroneal tendinitis, left leg Edward Carmichael MD Onset: 03/09/2019 Osteochondritis dissecans Edward Carmichael MD Onset: 02/17/2019 Joint derangement Edward Carmichael MD Onset: 02/17/2019 Social History Type Date Description Comments Sex Unknown Tobacco Use Start: Unknown A pack will last a week or so ETOH Use Denies alcohol use Tobacco Use Start: Unknown Social smoker Recreational Drug Use Current Drug User occasional marijuana - local person supplies Tobacco Use Start: Unknown Patient is a current smokes 1/2 pack daily smoker, smokes every day Smoking Status Reviewed: 10/27/19 Patient is a current smokes 1/2 pack daily smoker, smokes every day Exercise Type/Frequency Exercises regularly Exercise Type/Frequency PT once a week ; walks regularly Allergies, Adverse Reactions, Alerts Active Allergies Reaction Severity Comments Date Sulfa Antibiotics 06/20/2015 Compazine 06/20/2015 Mucinex 06/20/2015 Coconut 06/20/2015 [place] 06/20/2015 Penicillin 02/10/2019 Latex 02/10/2019 [place] mouth swelling 02/17/2019 Milk Related Compounds nausea and vomiting 02/17/2019 Medications Active Medications SIG Qnty Indications Ordering Date Provider Bupropion 300 mg daily Other Ordering 02/10/2019 Hydrochloride ER Provider (SR) 200mg Tablets ER 12HR Dexilant Take One Capsule By Pepecapraissa Pinon 02/10/2019 30mg Mouth Once Daily Alonzo, WAX CUTTER Capsules DR Miles 1 by mouth every Unknown 06/19/2015 10mg day Tablets Xanax take as directed Unknown 06/19/2015 0.5mg Tablets Albuterol Sulfate 1 vial via Unknown 06/19/2015 nebulizer 3 times (2.5mg/3ML) 0.083% daily as needed Nebulizer Ipratropium [place] 1 vial in nebulizer Unknown 06/19/2015 as directed prn 0.02% Solution breathing Benadryl occasionally for Unknown 06/19/2015 25mg Tablets allergies Proventil HFA 2 puffs by mouth Unknown 06/19/2015 every 4 hours 108(90Base) mcg/Act Aerosol Zyrtec Allergy 1 by mouth every Unknown 10mg day Tablets Dispers Latuda Unknown 40mg Tablets Fiber 2 - 3 tablets daily Unknown 625mg Tablets Magnesium take one Unknown 500mg capsule/tablet Tablets daily by mouth Cinnamon Cinnamon with Unknown 500mg Chromium 1 tablet Tablets daily Immunizations Description No Information Available Vital Signs Date Vital Result Comment 10/27/2019 12:41pm Height 61.25 inches 5'1.25" Weight 286.00 lb Heart Rate 107 /min BP Systolic 100 mmHg BP Diastolic 66 mmHg Body Temperature 97.3 F Pain Level 0 O2 % BldC Oximetry 96 % BMI (Body Mass Index) 53.6 kg/m2 09/28/2019 1:52pm Height 61.25 inches 5'1.25" Weight 286.00 lb Heart Rate 101 /min BP Systolic 113 mmHg left wrist BP Diastolic 74 mmHg left wrist O2 % BldC Oximetry 97 % BMI (Body Mass Index) 53.6 kg/m2 Results Test Acquired Date Facility Test Result H/L Range Note Lipid Profile 09/24/2019 [facility] Triglycerides 294 mg/dL 1 (Trig/Chol/HDL) [address] [place] [address] [phone] Cholesterol 213 mg/dL 2 HDL Cholesterol 38.5 mg/dL 3 LDL Cholesterol 116 mg/dL 4 Laboratory test 09/24/2019 [facility] Zinc Serum 0.80 g/mL 0.66-1.10 5 finding [address] [place], [place] [id number] [phone] Copper, Serum 1.45 g/mL 0.75-1.45 6 1 Desirable: <150 Borderline High: 150-199 High: 200-499 Very High: >500 2 Desirable: <200 Borderline High: 200-239 High: >239 3 Low: <40 Desirable: 40-60 High: >60 4 Desirable: <100 Near Optimal: 100-129 Borderline High: 130-159 High: 160-189 Very High: >189 5 ADDITIONAL INFORMATION This test was developed and its performance characteristics determined by [facility] in a manner consistent with CLIA requirements. This test has not been cleared or approved by the U.S. Food and Drug Administration. Test Performed by: [facility] [place] [address] Transportation Maintenance Specialist: Winston Berg M.D. Ph.D.; CLIA# [id number] ADDITIONAL INFORMATION This test was developed and its performance characteristics determined by [facility] in a manner consistent with CLIA requirements. This test has not been cleared or approved by the U.S. Food and Drug Administration. Test Performed by: [facility] [place] [address] Transportation Maintenance Specialist: Winston Berg M.D. 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0 Fatty (change of) liver, not elsewhere classified Assessments Date Code Description Provider 10/27/2019 M79.7 Fibromyalgia Rusty Cristobal MD 10/27/2019 M35.7 Hypermobility syndrome Rusty Cristobal MD 10/27/2019 R53.83 Other fatigue Rusty Cristobal MD 10/27/2019 F43.10 Post-traumatic stress disorder, Rusty Cristobal MD unspecified 10/27/2019 R76.0 Raised antibody titer Rusty Cristobal MD 09/28/2019 K21.9 Gastro-esophageal reflux disease without Bhavna Alonzo NP esophagitis 09/28/2019 K76.0 Fatty (change of) liver, not elsewhere Bhavna Alonzo NP classified 09/28/2019 R11.11 Vomiting without nausea Bhavna Alonzo NP 06/24/2019 K21.9 Gastro-esophageal reflux disease without Bhavna Alonzo NP esophagitis 06/24/2019 E28.2 Polycystic ovarian syndrome Bhavna Alonzo NP 06/24/2019 K76.0 Fatty (change of) liver, not elsewhere Bhavna Alonzo NP classified Plan of Treatment Future Appointment(s):12/29/2019 3:00 pm - Mandy Kwong MD at [facility]12/22/2019 3:00 pm - Rusty Cristobal MD at [facility] - [facility]12/29/2019 2:10 pm - Bhavna Alonzo NP at [facility] Penzjyclqxecsbcw67/10/2019 - Rusty Cristobal MDM79.7 FibromyalgiaComments:Hypermobility, PTSD all contributing to fibromyalgia (pain amplification). Hypermobility and exercise for fibromyalgia handout given; PT referral placed to help with the hypermobility.Follow up:f/u 8 hzhnzR39.7 Hypermobility syndromeNew Therapy:Physical HngtfcuD24.83 Other fatigueReferral: [facility], Sleep Disord,Diag/FcrmmnD69.10 Post-traumatic stress disorder , unspecifiedComments:Look into EMDR if clinically determined to be pyfzfpoveqqT79.0 Raised antibody titer Functional Status Description No Information Available Mental Status Description No Information Available Referrals Refer to Reason for Referral Status Appt Date [facility] Fatigue and chronic pain concerning for underlying Sent 09/2020 sleep apnea. Please do in-lab study; eval and treat. Thank you. [address] [place] [id number] [phone]
--- OUTSIDE RECORDS SUMMARY | 2020-01-03 13:28 | XMS REPORT | Continuity of Care Document ---
:1995 External Reference #:[id number] Author Name Mandy Kwong MD (transmitted by agent of provider Fabby Narayanan) Address [address], [address] [place] [address] Care Team Providers Name Role Phone Jass Pedroza MD - Family Care Team Information Payloader Operator [phone] Medicine Problems Active Problems Provider Date Dyssomnia Jeanine Malik DNP, RN, CARBON SEQUESTRATION PLANT OPERATOR-BC Onset: 06/20/2015 Disturbance in sleep behavior Jeanine Malik DNP, RN, CARB[employer] SEQUESTRATION PLANT OPERATOR-BC Onset: 2014 Note: Irregular sleep pattern Vomiting [...] pack will last a week or so Smoking Status Reviewed: 12/29/19 A pack will last a week or so ETOH Use Denies alcohol use Tobacco Use Start: Unknown Cessastion with Chantix no cigarettes today Recreational Drug Use Current Drug User occasional marijuana - local person supplies Exercise Type/Frequency Exercises regularly Exercise Type/Frequency PT once a week ; walks regularly Allergies, Adverse Reactions, Alerts Active Allergies Reaction Severity Comments Date Sulfa Antibiotics 06/20/2015 Compazine 06/20/2015 Mucinex 06/20/2015 Coconut 06/20/2015 [place] 06/20/2015 Penicillin 02/10/2019 Latex 02/10/2019 Almonds mouth swelling 02/17/2019 Milk Related Compounds nausea and vomiting 02/17/2019 Medications Active Medications SIG Qnty Indications Ordering Date Provider Bupropion 300 mg daily Other Ordering 02/10/2019 Hydrochloride ER Provider (SR) 200mg Tablets ER 12HR Dexilant Take One Capsule By cory Pinon 02/10/2019 30mg Mouth Once Daily RENATA Alonzo Capsules DR Miles 1 by mouth every Unknown 06/19/2015 10mg day Tablets Xanax take as directed Unknown 06/19/2015 0.5mg Tablets Albuterol Sulfate 1 vial via Unknown 06/19/2015 nebulizer 3 times (2.5mg/3ML) 0.083% daily as needed Nebulizer Ipratropium [place] 1 vial in nebulizer Unknown 06/19/2015 as [...] mouth Cinnamon Cinnamon with Unknown 500mg Chromium 2 tablet Tablets daily Chantix Continuing 1 by mouth twice a Unknown Month Tl day 1mg Tablets Immunizations Description No Information Available Vital Signs Date Vital Result Comment 12/29/2019 1:52pm Height 61.25 inches 5'1.25" Weight 286.00 lb Heart Rate 95 /min BP Systolic 118 mmHg BP Diastolic 86 mmHg O2 % BldC Oximetry 97 % BMI (Body Mass Index) 53.6 kg/m2 Neck Circumference in inches 18 12/22/2019 2:45pm Height 61.25 inches 5'1.25" Weight 286.00 lb Heart Rate 93 /min BP Systolic 123 mmHg BP Diastolic 80 mmHg Body Temperature 98.0 F Pain Level 3 O2 % BldC Oximetry 98 % BMI (Body Mass Index) 53.6 kg/m2 Results Test Acquired Date Facility Test Result H/L Range Note Lipid Profile 09/24/2019 [facility] Triglycerides 294 mg/dL 1 (Trig/Chol/HDL) [address] [place] [address] [phone] Cholesterol 213 mg/dL 2 HDL Cholesterol 38.5 mg/dL 3 LDL Cholesterol 116 mg/dL 4 Laboratory test 09/24/2019 [facility] Zinc Serum 0.80 g/mL 0.66-1.10 5 finding [address] [place] [address] [phone] Copper, Serum 1.45 g/mL 0.75-1.45 6 1 Desirable: <150 Borderline High: 150-199 High: 200-499 Very High: >500 2 Desirable: <200 Borderline High: 200-239 High: >239 3 Low: <40 Desirable: 40-60 High: >60 4 Desirable: <100 Near Optimal: 100-129 Borderline High: 130-159 High: 160-189 Very High: >189 5 ADDITIONAL INFORMATION This test was developed and its performance characteristics determined by [facility] in a manner consistent with CLIA requirements. This test has not been cleared or approved by the U.S. Food and Drug Administration. Test Performed by: [facility] [place] [address] Practice Or Student Teacher: Winston Berg M.D. Ph.D.; CLIA# [id number] ADDITIONAL INFORMATION This test was developed and its performance characteristics determined by [facility] in a manner consistent with CLIA requirements. This test has not been cleared or approved by the U.S. Food and Drug Administration. Test Performed by: [facility] [place] [address] Practice Or Student Teacher: Winston Berg M.D. Ph.D.; CLIA# [id number] Procedures Description No Information Available Medical Devices Description No Information Available Encounters Type Date Location Provider Dx Diagnosis Office Visit 10/27/2019 [facility]ology Services Rusty Sidari, M79.7 Fibromyalgia 1:00p Of [facility] M35.7 Hypermobility syndrome R53.83 Other fatigue F43.10 Post-traumatic stress disorder, unspecified R76.0 Raised antibody titer Office 09/28/2019 [facility] Gastroenterology Bhavna K21.9 Gastro-esophageal Visit 2:00p Kathrin reflux disease RENATA Alonzo without esophagitis K76.0 Fatty (change of) liver, not elsewhere classified R11.11 Vomiting without nausea Assessments Date Code Description Provider 12/29/2019 R06.83 Snoring Mandy Kwong MD 12/29/2019 R53.83 Other fatigue Mandy Kwong MD 12/22/2019 M79.7 Fibromyalgia Rusty Cristobal MD 12/22/2019 R53.83 Other fatigue Rusty Cristobal MD 10/27/2019 M79.7 Fibromyalgia Rusty Cristobal MD 10/27/2019 [...] R11.11 Vomiting without nausea Bhavna Alonzo NP Plan of Treatment Future Appointment(s):02/01/2020 2:30 pm - Camryn Akhtar NP at [facility]03/21/2020 4:00 pm - Rusty Cristobal MD at [facility]12/29/2019 - Mandy Kwong, MDR06.83 SnoringFollow up:2 hdxiuJ94.83 Other fatigue Functional Status Description No Information Available Mental Status Description No Information Available Referrals Refer to Reason for Referral Status Appt Date [facility] Fatigue and chronic pain concerning for underlying Sent 09/2020 sleep apnea. Please do in-lab study; eval and treat. Thank you. [address] [place] [id number] [phone]
[2020-01-03 14:04] VITALS: BP 139/84
--- NOTE | 2020-01-03 15:05 | UC ---
Lower Extremity/Ankle HPI - HPI Summary HPI Summary: 24 year old female presents with complaint of left foot pain after she accidentally twisted it last evening when she stood up from sitting. Reports pain to the dorsal and lateral aspect of the foot. She has been able to walk and weightbear since the injury although with some increased discomfort. Denies bruising, swelling, numbness, or tingling. - History of Current Complaint Chief Complaint: UCLowerExtremity Stated Complaint: LT FOOT INJURY Time Seen by Provider: 01/03/20 14:14 Hx Obtained From: Patient Hx Last Menstrual Period: 3 wks ago Pain Intensity: 4 - Allergies/Home Medications Allergies/Adverse Reactions: Allergies Allergy/AdvReac Type Severity Reaction Status Date / Time metformin Allergy Severe Diarrhea Verified 01/03/20 14:05 Penicillins Allergy Severe Anaphylatic Verified 01/03/20 14:05 Shock coconut oil Allergy Intermediate Swelling Verified 01/03/20 14:05 Of Face,Lips,& Throat prochlorperazine Allergy Intermediate Swelling Verified 01/03/20 14:05 [From Compazine] Of Face,Lips,& Throat almond AdvReac Intermediate Swelling Verified 01/03/20 14:05 Of Face,Lips,& Throat latex AdvReac Intermediate Rash Verified 01/03/20 14:05 carlos flavor AdvReac Intermediate Hives Verified 01/03/20 14:05 Sulfa (Sulfonamide AdvReac Intermediate Rash Verified 01/03/20 14:05 Antibiotics) dextromethorphan AdvReac Unknown Verified 01/03/20 14:05 [From Mucinex DM] Reaction Details guaifenesin [From Mucinex DM] AdvReac Unknown Verified 01/03/20 14:05 Reaction Details PMH/Surg Hx/FS Hx/Imm Hx Other Endocrine History: PCOS Respiratory History: Asthma Neurological History: Migraine Psychological History: Depression Other History Of: Negative For: Anticoagulant Therapy - Surgical History Surgical History: Yes Surgery Procedure, Year, and Place: gall bladder removed at age 15 - Family History Known Family History: Positive: Respiratory Disease - Social History Occupation: Disabled Lives: Alone Alcohol Use: Rare Substance Use Type: Marijuana Substance Use Comment - Amount & Last Used: rarely Smoking Status (MU): Light Every Day Tobacco Smoker Type: Cigarettes Have You Smoked in the Last Year: Yes - Immunization History Most Recent Influenza Vaccination: not this season Most Recent Pneumonia Vaccination: unsure Review of Systems All Other Systems Reviewed And Are Negative: Yes Constitutional: Positive: Negative Skin: Negative: Bruising Respiratory: Positive: Negative Cardiovascular: Positive: Negative Gastrointestinal: Positive: Negative Genitourinary: Positive: Negative Motor: Negative: Weakness Neurovascular: Negative: Decreased Sensation Musculoskeletal: Positive: Other: - See HPI Neurological/Mental Status: Positive: Negative Is Patient Immunocompromised?: No Physical Exam - Summary Physical Exam Summary: GENERAL APPEARANCE: Well developed, well nourished, alert and cooperative, and appears to be in no acute distress. CARDIAC: Normal S1 and S2. No S3, S4 or murmurs. Rhythm is regular. There is no peripheral edema, cyanosis or pallor. Extremities are warm and well perfused. Capillary refill is less than 2 seconds. Peripheral pulses intact. LUNGS: Clear to auscultation without rales, rhonchi, wheezing or diminished breath sounds. ABDOMEN: Positive bowel sounds. Soft, nondistended, nontender. No guarding or rebound. No masses or hepatosplenomegally. MUSKULOSKELETAL: ROM intact to all extremities. No joint erythema or tenderness. Normal muscular development. Normal gait. EXTREMITIES: Left foot nontender and without gross deformity, ecchymosis, or edema. Left ankle nontender with full ROM. Circulation and sensation intact. SKIN: Skin normal color, texture and turgor with no lesions or eruptions. Triage Information Reviewed: Yes Vital Signs: Initial Vital Signs Temp 98.2 F 01/03/20 14:02 Pulse 89 01/03/20 14:02 Resp 18 01/03/20 14:02 BP 139/84 01/03/20 14:02 Pulse Ox 100 01/03/20 14:02 Vital Signs Reviewed: Yes Diagnostics - Radiology No standard instances Radiology Interpretation Completed By: Radiologist Summary of Radiographic Findings: Order Information: FOOT LEFT 3+ VWS. Indication: Left foot pain. 3 views of left foot demonstrates no fracture or dislocation. No other bone or joint abnormality is noted. IMPRESSION: No fracture of the left foot. Lower Extremity Course/Dx - Course Course Of Treatment: 24 year old female presents with complaint of left foot pain after she accidentally twisted it last evening when she stood up from sitting. Reports pain to the dorsal and lateral aspect of the foot. She has been able to walk and weightbear since the injury although with some increased discomfort. Denies bruising, swelling, numbness, or tingling. Afebrile. VSS. On exam the left foot was nontender and without gross deformity, ecchymosis, or edema. Left ankle nontender with full ROM. Circulation and sensation intact. X-ray showed no acute fracture or dislocation. Reviewed results with patient. Recommending conservative treatment for left foot sprain including OTC analgesics and RICE. She was placed in a post-op shoe by the RN. She is to follow up with orthopedic surgery in 7 days if symptoms do not improve. Anticipatory guidance and warning symptoms were reviewed with the patient. Verbalizes understanding and agrees with POC. - Differential Dx/Diagnosis Differential Diagnosis/HQI/PQRI: Contusion, Dislocation, Fracture (Closed), Sprain Provider Diagnosis: Sprain of left foot Discharge ED - Sign-Out/Discharge Documenting (check all that apply): Patient Departure All imaging exams completed and their final reports reviewed: Yes - Discharge Plan Condition: Stable Disposition: HOME Patient Education Materials: Foot Sprain (ED) Referrals: Jass Pedroza MD [Primary Care Provider] - Torres Blunt MD [Medical Doctor] - 7 Days (If no improvement in symptoms.) Additional Instructions: The x-ray performed in the clinic today showed no evidence of a fracture. Rest the foot as much as possible. You may walk and bear weight as tolerated. Use the post-op shoe that was provided to you in the clinic until you are pain free. You may remove to sleep and shower but should wear at all other times. Apply ice to the affected area for 15-20 minutes at least 4 times a day to help with the pain and swelling. Elevate the foot to help reduce swelling. Take acetaminophen (Tylenol) or ibuprofen (Advil, Motrin) according to directions as needed for pain. Follow up with orthopedic surgery in 7 days if symptoms do not improve. Call for appointment. Seek immediate medical attention if you have severe pain not managed with pain medication, you are unable to walk or bear any weight, develop numbness or tingling in the foot or toes, or have any worsening of symptoms. - Billing Disposition and Condition Condition: STABLE Disposition: Home
== END 2020-01-03 15:25 | disposition home or self-care (01) ==
LOC: UCEAST 13:21
DX: S93.602A Unspecified sprain of left foot, initial encounter (principal); X50.9XXA Other and unspecified overexertion or strenuous movements or postures, initial encounter; Y92.9 Unspecified place or not applicable; J45.909 Unspecified asthma, uncomplicated; F17.210 Nicotine dependence, cigarettes, uncomplicated; Z88.8 Allergy status to other drugs, medicaments and biological substances; Z88.0 Allergy status to penicillin; Z91.018 Allergy to other foods; Z91.040 Latex allergy status; Z88.2 Allergy status to sulfonamides
CPT/HCPCS: 99212; G0463

== ENCOUNTER 2024-08-07 03:57 | Inpatient (IN) ==
[2024-08-07 05:50] LABS: ABS Lymphocytes 1.8 10^3/uL (1.0-4.8); ABS Monocytes 1.2 10^3/uL (0.0-0.9); ABS Neutrophils 11.8 10^3/uL (1.5-7.6); ABS Nucleated RBC 0.01 10^3/ul; Eosinophil % 0.1 %; Hemoglobin 13.1 g/dL (11.5-14.3); Lymphocyte % 12.1 %; Mean Corpuscular Hemoglobin 28.3 pg (27-33); Mean Corpuscular Hgb Conc 33.7 g/dL (31-36); Mean Corpuscular Volume 84.2 fL (80-97); Platelet Count 315 10^3/uL (150-450); Red Blood Count 4.63 10^6/uL (3.63-4.92); Red Cell Distribution Width 14.3 % (12-17); White Blood Count 14.8 10^3/uL (3.8-11.8)
[2024-08-07 06:08] LABS: ALT 24 U/L (7-52); AST 18 U/L (13-39); Albumin 4.1 g/dL (3.2-5.2); Albumin/Globulin Ratio 1.5 (1-3); Alkaline Phosphatase 87 U/L (35-149); Anion Gap 10 mmol/L (2-16); Blood Urea Nitrogen 7 mg/dL (6-24); CO2 Carbon Dioxide 26 mmol/L (22-32); Calcium 8.7 mg/dL (8.6-10.3); Chloride 102 mmol/L (101-111); Creatinine, Serum 1.03 mg/dL (0.51-0.95); Globulin 2.8 g/dL (2-4); Glucose 109 mg/dL (70-100); Potassium 3.5 mmol/L (3.5-5.0); Sodium 138 mmol/L (135-145); Total Bilirubin 0.5 mg/dL (0.2-1.0); Total Protein 6.9 g/dL (6.4-8.9)
[2024-08-07 06:14] LABS: HCG Pregnancy < 0.60 mIU/mL; High Sens Troponin Baseline 3 pg/mL (<15)
[2024-08-07] MEDS: Iohexol 350 (CONTRAST) 500 ML MDV IV ONE (06:38)
[2024-08-07] MEDS: Albuterol/Ipratropium NEB.SOL (2.5/0.5 MG) 3 ML NEB.SOLN INH ONE ×2 (06:46→09:09)
[2024-08-07 07:23] LABS: High Sensitivity Troponin 1 Hr < 3 pg/mL (<15)
[2024-08-07] MEDS: Dexamethasone IV 4 MG/ML VIAL 1 ml VIAL IV SLOW PU ONE (09:10)
[2024-08-07] MEDS: Lactated Ringers 1000 ml BAG IV.FLUID IV ONE (09:10)
[2024-08-07] MEDS: Azithromycin 500 mg/250 ml NS 500 MG/250 ML BAG IVPB ONE (09:52)
[2024-08-07] MEDS ORDERED: Al Hydrox/Mg Hydrox/Simet LIQ 30 ML UDC PO PRN (10:24)
[2024-08-07] MEDS ORDERED: Albuterol/Ipratropium NEB.SOL (2.5/0.5 MG) 3 ML NEB.SOLN INH PRN (10:29)
[2024-08-07] MEDS ORDERED: Benzocaine/Menthol LOZ PO PRN (10:47)
[2024-08-07] MEDS: Albuterol/Ipratropium NEB.SOL (2.5/0.5 MG) 3 ML NEB.SOLN INH SCH (13:54)
[2024-08-07] MEDS: methylPREDNISolone SOD SUCC 40 mg/ml 1 ml VIAL IV SCH (15:42)
[2024-08-08 06:54] LABS: ABS Lymphocytes 1.8 10^3/uL (1.0-4.8); ABS Monocytes 0.6 10^3/uL (0.0-0.9); ABS Neutrophils 10.6 10^3/uL (1.5-7.6); Hematocrit 39.9 % (35-45); Hemoglobin 13.5 g/dL (11.5-14.3); Lymphocyte % 13.9 %; Mean Corpuscular Hemoglobin 28.5 pg (27-33); Mean Corpuscular Hgb Conc 33.7 g/dL (31-36); Mean Corpuscular Volume 84.4 fL (80-97); Mean Platelet Volume 7.1 fL (7.5-11.2); Platelet Count 348 10^3/uL (150-450); Red Blood Count 4.73 10^6/uL (3.63-4.92); Red Cell Distribution Width 13.7 % (12-17); White Blood Count 13.1 10^3/uL (3.8-11.8)
[2024-08-08 07:35] LABS: Calcium 9.3 mg/dL (8.6-10.3); Creatinine, Serum 0.84 mg/dL (0.51-0.95); Magnesium 2.5 mg/dL (1.9-2.7); Potassium 4.7 mmol/L (3.5-5.0); eGFR CKD-EPI 95.8 (>60)
[2024-08-08] MEDS: CMCS: Lisdexamfetamine 10 mg CAP(NF) PO SCH (08:23)
[2024-08-08] MEDS: Saline NASAL SPRAY 0.65% BTL BOTH NARES PRN (08:23)
[2024-08-08] MEDS: CARIPRAZINE 3 MG PO SCH (08:29)
[2024-08-08] MEDS ORDERED: Azithromycin 250 MG in NS 0.9% 250 ml 250 ML IVPB SCH (11:00)
[2024-08-08] MEDS: Azithromycin 250 MG in NS 0.9% 250 ml 250 ML IVPB SCH (11:47)
[2024-08-08] MEDS: Enoxaparin 40 MG/0.4 ML SYR SUBCUT SCH (12:36)
[2024-08-09] MEDS: VRAYLAR 1.5 MG PO SCH (09:04)
[2024-08-09 13:43] VITALS: BP 131/84
== END 2024-08-09 15:00 | disposition home or self-care (01) | DRG 189 ==
LOC: EDHOLD 03:57 → ED 03:57 → MED 11:00
PROVIDERS: ADMIT Internal Medicine; ATTEND Hospitalist